=== PATIENT | male | born 1960 | race Caucasian/White ===

== ENCOUNTER 2017-10-15 17:17 | Emergency (ER) | payer OTHER, SELFPAY ==
[2017-10-15 17:18] VITALS: BP 154/86; PULSE 105; RESP 22; TEMP 36.7; O2SAT 99; BMI 34.0
[2017-10-15 18:03] VITALS: PULSE 102; RESP 18
[2017-10-15] MEDS: Ipratropium/Albuterol Sulfate 3 ML AMPUL.NEB INHALATION (18:03)
--- NOTE | 2017-10-15 18:26 | RAD_ITS ---
STUDY: X-RAY CHEST REASON FOR EXAM: Male, 57 years old. Cough. Flu symptoms. TECHNIQUE: PA and lateral views of the chest. COMPARISON: None. FINDINGS: The lungs are mildly hyperexpanded. There is no focal mass or infiltrate. There is no demonstrated pleural abnormality. Normal size heart. Normal mediastinum and vanessa. Normal visualized pulmonary arteries. Normal visualized aortic arch and descending thoracic aorta. There are diffuse degenerative changes of the visualized thoracic spine. Normal visualized ribs, clavicles, and shoulders. There is no demonstrated abnormality of the visualized soft tissue structures of the upper abdomen. RAD/Chest PA and Lateral IMPRESSION: No acute cardiopulmonary disease. Electronically Signed: Kareem Toth DO at 18:35 EST Tel [phone], Service support ,
--- NOTE | 2017-10-15 19:03 | ED.VISSUMM ---
- ER Visit Summary Date of Service: 10/15/17 Chief Complaint: [Cough shortness of breath] History of Present Illness: The patient is a 57 M [presents the emergency department with sore throat runny nose fever cough and shortness of breath that started this morning. He was seen at urgent care. He was given a prescription for Tamiflu. Throughout the day he has had paroxysmal of cough that make him very short of breath and tight in the chest and he is concerned about this. He is not having exertional shortness of breath and has periods without shortness of breath in between the coughing spells. He is otherwise healthy. His and his kids also have influenza] Physical Examination: [] Blood pressure 154/86 heart rate 102 respirations 18 temperature 9 8.1 pulse ox 99% on room air WN WD NAD PERRL EOMI MMM NECK supple and nontender, no masses RRR no murmur rub or gallop, no peripheral edema, symmetric radial pulses CTAB no respiratory distress ABDOMEN is soft and nontender, normal bowel sounds, no distension, no rebound or guarding SKIN is warm and dry no rashes Alert and Oriented x3, CN II-XII in tact, no motor or sensory deficits, gait normal No lymphadenopathy Test Results: [] Emergency Department Course and Treatment: [Chest x-ray was obtained and shows no acute process. He was given a DuoNeb in the emergency department although there was not wheezing on exam but it did improve his symptomology very much. He was given albuterol MDI 40 mg of prednisone and antitussive medicine for home. He will drink rest and was given precautions for which to return] Treatment Plan: [] Disposition: [Discharge] Impression: [Influenza] This note was generated with Live[employer] dictation software. It may contain incorrect words, spelling, and punctuation that were not noted in review of the chart prior to signing ED Disposition - Plan for ED Patient: Chief Complaint: Shortness of Breath Referrals: Santana Salinas MD [Primary Care Provider] -
--- NOTE | 2017-10-15 19:05 | ED.DEP ---
ED Disposition - Plan for ED Patient: Chief Complaint: Shortness of Breath Instructions: ED Flu Prescriptions: Albuterol IH (ProAir) [Proair Hfa] 2 puff INHALATION Q4H PRN PRN #1 inhaler PRN Reason: Cough Promethazine/Codeine [Phenergan W/Codeine] 5 ml PO Q6H PRN PRN #120 ml PRN Reason: Cough Prednisone 40 mg PO DAILY #6 tablet Referrals: Santana Salinas MD [Primary Care Provider] - 3-5 Days
[2017-10-15 19:21] VITALS: PULSE 81; RESP 16; O2SAT 100
== END 2017-10-15 19:23 | disposition home or self-care (01) ==
PROVIDERS: Emergency Provider Emergency Medicine; Family Provider Internal Medicine; PCP Internal Medicine
DX: J11.1 Influenza due to unidentified influenza virus with other respiratory manifestations (principal); E11.9 Type 2 diabetes mellitus without complications; I10 Essential (primary) hypertension
CPT/HCPCS: 71046; 94640; 99282

== ENCOUNTER → 2019-10-28 | Outpatient (CLI) | payer OTHER, SELFPAY ==
--- NOTE | 2019-10-28 17:07 | STRESSREP ---
Stress Test Report Exercise stress test. 59-year-old man with a history of coronary artery bypass surgery. Cardiac rehabilitation. Resting EKG demonstrates normal sinus rhythm with a rate of 77 bpm. The patient exercised according to regular [facility] protocol for a total duration of 7 minutes and 30 seconds. The maximum heart rate attained was 142 bpm which was 87% of maximum predicted heart rate the maximum workload was 9.3 metabolic equivalents. Patient maintained sinus rhythm throughout the recording. The test was terminated due to leg discomfort and the target heart rate being achieved. Resting blood pressure was 122/70 with a final blood pressure 150/80 mmHg. No clinical angina was noted. Conclusion: Exercise stress test with no EKG criteria for ischemia at a moderate to high workload. No contraindications to cardiac rehabilitation.
== END | disposition home or self-care (01) ==
LOC: CVS 09:33
PROVIDERS: PCP Internal Medicine
DX: I25.10 Atherosclerotic heart disease of native coronary artery without angina pectoris (principal); Z95.1 Presence of aortocoronary bypass graft
CPT/HCPCS: 93017

== ENCOUNTER → 2019-10-28 | Outpatient (CLI) | payer OTHER, SELFPAY ==
--- NOTE | 2019-10-28 10:37 | PCM.CR.HP2 ---
CR - History & Physical - General Arrival date:: 10/28/19 Arrival time:: 10:38 Date of Referral:: 09/23/19 Date of CR Evaluation:: 10/28/19 Referring Physician: HARLEEN Primary Diagnosis: CABG x 3 - History of Present Cardiac Event Onset Date: Enter Onset Date of cardiac illnesses in Comment field below Current stable Angina Pectoris:: No Acute Myocardial Infarction within 12 months:: No Coronary Artery Bypass Graft:: Yes - x3 09/23/19 Heart valve replacement or repair:: No PTCA or coronary stenting:: No Heart or Heart-Lung Transplant:: No Type of Symptoms:: Chest pain with splitting wood Interventions with present event:: CABG Were there any complications?: non - Medications Home Medications: Ambulatory Orders Medication Instructions Recorded Aspirin, Baby 2 tab PO DAILY 03/15/17 Fenofibrate Nanocrystallized 145 mg PO DAILY 03/15/17 [Fenofibrate] Hydrocodone Bitart/Apap 5-325 1 - 2 tablet PO Q4H PRN PRN #20 03/15/17 [[place] 5/325] tablet Insulin Aspart [Novolog Flexpen] 0 units SQ TID 03/15/17 Insulin Aspart [Novolog Flexpen] 50 unit SQ QHS 03/15/17 Lisinopril 5 mg PO DAILY 03/15/17 Multivitamin [Multiple Vitamins] 1 each PO DAILY 03/15/17 Sitagliptin Phosphate [Januvia] 100 mg PO DAILY 03/15/17 Trazodone HCl 1 tab PO QHS PRN PRN 03/15/17 metFORMIN HCl [Glucophage] 1 tab PO BID 03/15/17 Albuterol IH (ProAir) [Proair Hfa] 2 puff INHALATION Q4H PRN PRN #1 10/15/17 inhaler Prednisone 40 mg PO DAILY #6 tablet 10/15/17 proMETHazine/codeine soln 5 ml PO Q6H PRN PRN #120 ml 10/15/17 [Phenergan W/Codeine] Metoprolol Tartrate [Lopressor 50 mg PO BID 10/28/19 (Beta Wilmer)] - Allergies Allergies/Adverse Reactions: Allergies No Known Allergies Allergy (Verified 10/15/17 17:19) - Sleep Disorder Evaluation Hx of Sleep Apnea: No Do you snore loudly (louder than talking or can be heard through closed doors)?: No Do you often feel tired/ fatigued/ sleepy during daytime?: No Has anyone observed you stop breathing during sleep?: No History of Hypertension (for STOP score): Yes STOP Results: Negative Advanced Directives - Advanced Directives 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 Living Will: No Advance Directives Information Provided: Yes Advance Directives on File: No DNR Order?:: No Past Medical History - Past Medical Illness Medical History: Past Medical History (Last Updated 10/28/19 @ 10:50 by Chuy Villa RN) Arteriosclerotic heart disease (ASHD) I25.10 Diabetes mellitus E11.9 HLD (hyperlipidemia) E78.5 Hypertension I10 - Past Surgical History Surgical History: coronary bypass surgery - Family History Summary Family History: Family History (Last Updated 10/28/19 @ 10:52 by Chuy Villa RN) Uncle famil Social History - Smoking History Smoking Status: Never smoker Hx Tobacco Use: No Hx Smoking Exposure: No - Alcohol Use Alcohol Usage: No - Substance Abuse Hx Substance Use: No - Occupation Occupation (List type of work in comments):: Employed Hours worked per day:: 8 - Hobbies, Recreation, Social Activities Hobbies: Woodworking, Hiking, Walking, Exercise, Other - gardening Recreational Activities: I am able to engage in a few activities Social Environment - Status Marital Status: - Current Living Arrangements Living Environment:: Spouse - Children How many children do you have?: 1 Do any of your children live nearby?: Yes - Safety Do you feel safe in your surroundings?: Yes - Assistance Do you need any assistance at home?: no Review of Systems - Review of Systems Hints: Right click = Denies ([place]). Left click = Reports ([place]) Review of Present Symptoms: Reports: Operative Discomfort - legs where veins were removed, Wound Healing - healing well, Appetite - Normal, Appetite - Special Diet - cardiac diet, Sleep - Normal - difficult sleeping with chest discomfort from surgery. Denies: Shortness of Breath at Rest, Shortness of Breath with Exertion, PVD, Angina, Dizziness/Lightheadedness, Fatigue, Heart Arrhythmia/Irregularities, Sexual Changes - Pain Is Patient Pain Free?: No Pain Location: chest, upper extremity, lower extremity Pain Level: 2/10 Previous experience dealing with pain?: reposition, pain meds Risk Factor Assessment - Vital Signs Respiratory Rate: 98 - Pulse Pulse Rate: 78 Pulse Rhythm: Regular - Hypertension Blood Pressure Sitting - Right Arm: 124/70 Blood Pressure Sitting - Left Arm: 120/74 - Stress Stress: Recent, Work-related - Blood Cholesterol/Lipids Total Cholesterol (mg/dL) Goal = less than 200 mg/dL: 108 Triglycerides (mg/dL) Goal = less than 150 mg/dL: 126 - Diabetes Diabetic History: Type II, Medication Dependent, Insulin Dependent Nutrition Referral for Diabetes: Yes - Obesity Height: 5 ft 10 in Weight:: 224 lb Weight in Pounds: 224.0 lbs Weight Source: Stated by Patient Body Mass Index (BMI): 32.1 Desired Body Weight: 215 Realistic Weight Goal (Loss of 1-2 lbs/week): 215 Nutritional Referral for Obesity: Yes - Physical Inactivity Physical Inactivity: Reg Exercise 30 min/day - not since CABG Exercise Limitations: sternal prec and 10 # - Risk Stratification Risk Guidelines: Lowest Risk: Risk Factor for Smoking, Risk Factor for Hypertension, Risk Factor for Sedentary Lifestyle, Risk Factor for Depression, Moderate Risk: Risk Factor for Dyslipidemia, Highest Risk: Risk Factor for Diabetes, Risk Factor for Obesity - For Smoking Smoking Risk Guidelines: Smoking Low Risk: None or quit greater than 6 months ago. Smoking Moderate Risk: Smoker or quit 6 months or less ago. Smoking High Risk: Smoker - For Dyslipidemia Dyslipidemia Risk Guidelines: Low Risk: Moderate Risk: High Risk: 15-25% fat 25.1-29% fat >/= 30% fat. <7% sat fat 7-9% sat fat >9% sat fat. <150 mg chol 150-299 mg chol >/= 300 mg chol. LDL <100 LDL 100-129 LDL >/= 130. Chol/HDL ratio <5.0 Chol/HDL ratio 5.0-6.0 Chol/HDL ratio >6.0. Triglycerides <100 Triglycerides 100-149 Triglycerides >/= 150 - For Diabetes Mellitus Diabetes Risk Guidelines: Diabetes Low Risk: HgA1c <6.5% and/or FBG <120. Diabetes Moderate Risk: HgA1c 6.6-7.9% and/or FBG 120-180. Diabetes High Risk: HgA1c >/= 8% and/or FBG >180 - For Obesity/Overweight Obesity/Overweight Risk Guidelines: Obesity Low Risk: BMI <25.0. Obesity Moderate Risk: BMI 25-29.9. Obesity High Risk: BMI >/= 30.0 - For Hypertension Hypertension Risk Guidelines: Hypertension Low Risk: Systolic <120 and Diastolic <80. Hypertension Moderate Risk: Systolic 120-139 and Diastolic 80-89. Hypertension High Risk: Systolic >/= 140 and Diastolic >/= 90 - For Sedentary Lifestyle Sedentary Lifestyle Risk Guidelines: Sedentary Lifestyle Low Risk: >/= 1,500 kcal/week. Sedentary Lifestyle Moderate Risk: 700-1,499 kcal/week. Sedentary Lifestyle High Risk: < 700 kcal/week - For Depression Depression Risk Guidelines: Depression Low Risk: Not clinically depressed. Depression Moderate Risk: Mildly depressed. Depression High Risk: Clinically depressed - Family History Family History: Family History (Last Updated 10/28/19 @ 10:52 by Chuy Villa RN) Uncle famil Motivation - Motivation to Participate On a scale of 1 to 10, how prepared are you to commit to attending program?: 10
--- NOTE | 2019-10-28 10:46 | PCM.CR.ITP ---
Diagnosis - General Information Admitting Diagnosis: S/P CABG ON 10/25/2019 Personal Learning Style:: Audio/Visual, Written Barriers to Learning: No Barriers Gave educational material for:: Treating Heart Disease, Emotions & Heart Disease, Stress Management & Relaxation, Sleep Disorders & Heart Disease, How The Heart Works, What it means to have Heart Disease, How Coronary Artery Disease is Diagnosed, Heart Procedures, What Heart Medications Do, Risk Factors & Modifications, Living an Active Life, Nutrition - Education/Goals Individual Counseling: Initial Assessment: Abnormal Cholesterol Levels, High Blood Pressure, Overweight/Obesity Cardiac Rehabilitation Goals: 1. Maintain the individual as the primary focus of care. 2. To improve the patient's quality of life. 3. Identification of cardiac risk factors and provide cardiac risk factor management. 4. Enhance the psychosocial status of the patient. 5. Reconditioning enough to allow the patient to resume customary activities. 6. Control symptoms of cardiac disease Personal Goals: Initial Assessment: Improve energy level, Get back to work, or to resume activities faster, Improve muscle strength and endurance, Improve diet and eating habits (eat healthier), Control risk factors (learn risk factor modification) Scale for measuring improvement of personal goals: Enter appropriate number in Comments. 2 = Unchanged. 3 = Slightly Better. 4 = Moderate Improvement. 5 = Met my Goal - Diagnosis & Disease Process Outcomes/Goals: Pt IDs own risk factors & lifestyle modifications by Session 10, Verbalizes symptoms of angina & response by session 3., Pt independently manages Plan/Interventions: Assist Pt to ID & engage in lifestyle modification to reduce CVD risk, Instruct on individual risk factors, Review symptoms of angina & emergency actions, Review secondary diagnosis & identify educational needs. - Safety Referral to Physical Therapy: No Referral to [facility] Case Management: No Fall Risk Assessed:: Yes Assistive Devices:: None Exercise - Initial Assessment - Visit Date of Eval: 10/28/19 Session #:: 0 - INITIAL EVALUATION Mets: Pre-: >7 METS for 30 minutes by discharge - Stress Test Date: 10/28/19 - @NOON. - Physician Prescribed Exercise Modalities: Treadmill, Rower - 8 WEEKS S/P CABG, Airdyne, NuStep Intensity: 60-80% maximum heart rate reserve from GXT Current METSs:: 4.0 Target Heart Rate:: 106-137 Resting Blood Pressure: 124/70 - Outcomes & Goals Goals:: Verbalizes understanding of THR, RPE & goal METS by session 6, Documents in home exercise log/reports 30 min aerobic 5 day/wk by DC, Demonstrates accurate pulse taking by DC - Intervention & Plan Exercise Program Goals: Instruct on personal THR & RPE, Instruct on MET level & personal MET goal, Show patient to take own pulse /validate performance until accurate, Instruct on home exercise - Physical Activity Home Exercise Physical Activity - Home Exercise: Safe Exercise, Warm-up, Self-monitoring, Cool-Down, Home Exercise > 30 min Daily, Sitting Time <3 hours/daily - Outcomes & Goals Outcomes/Goals: Demonstrates correct Warm-up/exercise Cool-Down (S3) if = 2.5 METs, Verbalizes symptoms of exercise intolerance by Session 3 (S3), Demonstrate safe equipment use (S3) & follows exercise prescrition (6) - Intervention & Plan Plan/Intervention: Instruct warm-up & cool-down if exercising at > 2 METs, Instruct on symptoms of exercise intolerance & actions to take, Assess intial functional capacity & safety risk Nutrition - Initial Assessment - Program Goals Nutrition Program Goals: LDL <100 optimal. 100 - 129 Near optimal. 130 - 159 Borderline High. 160 - 189 High. Total Cholesterol <200 desirable. 200 - 239 Borderline High. >/= 240 High. HDL < 40 Low >/=60 High. Triglycerides <150 desirable. <199 optimal. VlDL 5 - 40. HgbA1C <7%. BMI <25 Patient has diagnosis of Hyperlipidemia (ICD E78)?: Yes - Visit Date of Assessment:: 10/28/19 Session #:: 0 - Cholesterol/Lipids Triglycerides (mg/dL): 0 - UNAVAILABLE Determine presence & major risk factors that modify LDL goal: Hypertension or hypertensive medication, Age men > 45 years; women >/= 55 years Outcomes/Goals: Pt IDs own risk factors & lifestyle modifications by Session 10, Verbalizes symptoms of angina & response by session 3., Pt independently manages Intervention/Plan: Advocate for lipid panel cholesterol medication if applicable, Instruct on personal lipid levels & lipid goals/NCEP guidelines, Instruct on cholesterol Referral to dietitian:: Yes - Diabetes (Other Core Measures) Diabetes Type: Diagnosis Type II ICD-10 E11 Insulin dependent injection/pump?: Yes - NOVOLIN and HUMALOG Non-Insulin Dependent?: Yes Do you monitor your blood sugar at home?: Yes Referral to Diabetic Clinic:: Yes - INITIAL DSMNT & MNT Outcomes/Goals:: Able to state symptoms of, Able to state, Able to state Intervention/Plan:: Instruct on, Refer to, Instruct on - Weight Mgt (Other Care) Not Applicable: Yes Diagnosis Overweight/Obesity BMI> 30% ICD-10 E66: Yes Outcomes/Goals: Pt sets, maintains & shows weight loss goal & trend during rehab Intervention/Plan: Instruct on ideal BMI & set weight loss goal w/patient, Assist pt to ID & incorporate diet changes for weight loss by S9, Refer to Structured Weight Loss program as appropriate, Encourage goal of using 250-300dcal per session for weight loss - Healthy Eating Habits Outcomes/Goals:: Consume diet rich in vegs,fruits,whole grain/high fiber,fish,lean meat, Limit sat/trans fats,cholesterol & added salts & sugars Intervention/Plan:: Assess current eating habits - Education Gave educational materials for:: Signs & symptoms of hypoglycemia, Signs & symptoms of hyperglycemia, Relate diabetes to coronary artery disease, Healthy eating Medical - Initial Assessment - Visit Date of Eval: 10/28/19 - Medication Compliance Preventative Medication(s):: Aspirin, Statin/lipid, Beta milton H/O mental health issues: depression, anxiety, or addiction?: No Doesn?t believe in the benefits of treatment?: No Believes medications are unnecessary or harmful?: No Has a concern about medication side effects?: No Expresses concern over the cost of medications?: No Outcomes/Goals: Verbalizes medications,desired effect & common side effects @ DC, Pt self-reports following medication regimen, Keeps card in wallet w/medications listed by DC Interventions/plans: Instruct on medication effects & side effects, Review medication list w/patient every two weeks, Instruct importance of taking meds as ordered & assist problem solving - Tobacco Use Tobacco Use: Non-smoker Do you use smokeless tobacco?: No - Hypertension Hypertension Diagnosis:: Hypertension ICD-10 I10 [place] [employer] Hypertension Guidelines: [place] [employer] Hypertension Guidelines. Normal BP Less than 120/80. Elevated BP 120/80. Hypertension Stage 1: BP 130-139/80-89. Hypertesnion Stage 2: BP 140 or higher/90 or higher. Hypertension Crisis: BP higher than 180/120 Outcomes/Goals: Able to verbalize/achieve optimal blood pressure <130/80, Incorporates diet changes & exercise for blood pressure control by DC Interventions/plan: Instruct on optimal blood pressure, hypertension & medications, Instruct on effects of sodium, alcohol, stress, exercise &hypertension - Tobacco Cessation Referral Smoking Cessation Referral:: No Education Schedule Given:: Yes Psychosocial - Initial Assess - VIsit Date of Eval: 10/28/19 Session #:: 0 - INITIAL EVALUATION STARTING 11/01/2019 Not Applicable: No History of previous Mental disease:: No - Target Goals Target Goals: Assess presence or absence of depression. Using a valid screening tool, maximizes coping skills. Positive support system - Psychosocial Test Tool Used:: Richard[place] Jamie QOL Cardiac, PHQ-9 Questionnaire phq-9 Severity: Severity. 1-4 Minimal Depression. 5-9 Mild Depression. 10-14 Moderate Depression. 15-19 Moderately Sever Depression. 20-27 Severe Depression. Rule: - Referral to Behavioral Health PS - Interventions: Yes Attend Stress Management Classes, No Referral to Behavioral Health if PHQ-9 score >9:, No Referral to [facility], No Referral to Physician if PHQ-9 if score is 5-9: - Outcomes/Goals: See list Psychosocial Outcomes/Goals:: ID's personal stressors & 2 strategies to manage stress by discharge - Intervention/Plan: See List Interventions/Plan:: Assess stressors,coping strategies & signs of derpression on admission, Instruct/assist pt to develop coping & personal stress Mgt strategies, Instruct patient to recognize signs & symptoms of depression, Instruct patient to recog Patient Health Questionnaire Initial Assessment 1. Little interest or pleasure in doing things: Several days 2. Feeling down, depressed, or hopeless: Several days 3. Trouble falling or staying asleep, or sleeping too much: More than half the days 4. Feeling tired or having little energy: Several days 5. Poor appetite or overeating: Not at all 6. Feeling bad about yourself -- or that you are a failure or have let yourself or your family down: Not at all 7. Trouble concentrating on things, such as reading the newspaper or watching television: Not at all 8. Moving or speaking so slowly that other people could have noticed. Or the opposite - being so fidgety or restless that you have been moving around a lot more than usual: Not at all 9. Thoughts that you would be better off , or of hurting yourself in some way: Not at all How difficult have these problems made it for you to do your work, take care of things at home, or get along with other people?: Not difficult at all Total Score: 5 NICKI-Q SV Test - Statements CAD is a disease of the arteries in the heart: False Examples of risk factors for heart disease: True Angina is chest pain or discomfort: True The benefits of resistance training include: True Eating more meat and dairy products: False Anti-platelet medications such as aspirin are important: True The only effective way to manage stress: False An exercise warm-up slowly increases heart rate: True Prepared, processed foods usually have high sodium: True Depression is common after a heart attack: True The statin medications lower cholesterol: True To control blood pressure, lower the amount of sodium: True If someone gets chest discomfort during walking: False Transfats are partially hydrogenated vegetable oils: True Sleep apnea that is not treated increases the risk: True To control cholesterol, one should become a vegetarian: False Someone knows if he/she is exercising at the right level: True Diabetes cannot be prevented with exercise & health eating: False Stress is a large risk for heart attack: True A diet that can help lower blood pressure is rich in: True - Total Score Total Correct Responses: 19 Self-Efficacy Initial Assessment We would like to know how confident you are in doing certain activities. Please select your confidence level for:: Select your confidence level for the following using the scale 1-10 where 1 is not at all confident and 10 is totally confident. Your score is the average of all 6 responses. Fatigue: How confident are you that you can keep the fatigue caused by your disease from interfering with the things you want to do? Select Number: 10 Physical Discomfort or Pain: How confident are you that you can keep the physical discomfort or pain of your disease from interfering with the things you want to do? Select Number: 10 Emotional Distress: How confident are you that you can keep the emotional distress caused by your disease from interfering with the things you want to do? Select Number: 10 Other Symptoms or Health Problems: How confident are you that you can keep other symptoms or health problems from interfering with the things you want to do? Select Number: 9 Different Tasks and Activities: How confident are you that you can do the different tasks and activities needed to manage your health condition so as to reduce your need to see a doctor? Select Number: 9 Medication: How confident are you that you can do things other than just taking medication to reduce how much your illness affects your everyday life? Select Number: 9 Total Score:: 9 Nutrition Survey - Nutrition Survey Instructions Scoring Instructions: Scoring is as follows: Yes = 1 points. No = 0 point. Patient score that is >/=12 is considered to be at potential nutritional risk and could benefit from a referral to a registered dietitian. - Nutrition Survey Initial Have you lost >10 lbs over the past 2 months without trying?: No Are you following a special diet at home for diabetes, low fat, or low salt?: Yes Are you interested in meeting with a dietitian for help understanding your diet?: No Do you eat less than 3 meals a day?: No Do you eat fatty meats (olsen, sausage, ribs, etc), fried foods, desserts, large amounts of salad dressings, margarine, butter, or cheese most days?: No Do you have food allergies? [Enter types in comment field]: No Do you eat in restaurants more than 3 times a week?: No Do you season food with salt, seasoning salt, or garlic salt?: No Do you used canned, boxed, frozen meals, or soups, seasoning packets?: No Total Score:: 1
[2019-10-28 11:03] VITALS: BP 124/70
[2019-10-28 11:07] VITALS: BP 120/74; BP 124/70; PULSE 78; RESP 98; BMI 32.1
== END | disposition home or self-care (01) ==
LOC: CR 09:29
PROVIDERS: PCP Internal Medicine; Referring Provider Thoracic Surgery (Cardiothoracic Vascular Surgery); Visit Provider Thoracic Surgery (Cardiothoracic Vascular Surgery)
DX: Z95.1 Presence of aortocoronary bypass graft (principal)

== ENCOUNTER 2019-11-17 14:15 | Outpatient (RCR) | payer OTHER, SELFPAY | END 2019-11-20 23:59 | LOC: CR 14:15 | PROVIDERS: PCP Internal Medicine; Referring Provider Thoracic Surgery (Cardiothoracic Vascular Surgery) | DX: Z95.1 Presence of aortocoronary bypass graft (principal) | CPT/HCPCS: 93798 ==

== ENCOUNTER 2019-12-10 14:15 | Outpatient (RCR) | payer OTHER, SELFPAY ==
[2019-10-28 11:07] VITALS: BMI 32.1
--- NOTE | 2019-11-24 09:08 | PCM.CR.ITP ---
Diagnosis - General Information Admitting Diagnosis: S/P CABG Personal Learning Style:: Audio/Visual, Written Barriers to Learning: No Barriers Stage of change r/t lifestyle modifications:: Action Gave educational material for:: Treating Heart Disease, Emotions & Heart Disease, Stress Management & Relaxation, Sleep Disorders & Heart Disease, How The Heart Works, What it means to have Heart Disease, How Coronary Artery Disease is Diagnosed, Heart Procedures, What Heart Medications Do, Risk Factors & Modifications, Living an Active Life, Nutrition - Education/Goals Individual Counseling: Initial Assessment: Abnormal Cholesterol Levels, High Blood Pressure, Overweight/Obesity Cardiac Rehabilitation Goals: 1. Maintain the individual as the primary focus of care. 2. To improve the patient's quality of life. 3. Identification of cardiac risk factors and provide cardiac risk factor management. 4. Enhance the psychosocial status of the patient. 5. Reconditioning enough to allow the patient to resume customary activities. 6. Control symptoms of cardiac disease Personal Goals: Initial Assessment: Improve energy level, Get back to work, or to resume activities faster, Improve knowledge of cardiac disease, Improve muscle strength and endurance, Improve diet and eating habits (eat healthier), Control risk factors (learn risk factor modification) Scale for measuring improvement of personal goals: Enter appropriate number in Comments. 2 = Unchanged. 3 = Slightly Better. 4 = Moderate Improvement. 5 = Met my Goal - Diagnosis & Disease Process 30 day Reassessments:: Progressing - Safety Referral to Physical Therapy: No Referral to [facility] Case Management: No Fall Risk Assessed:: Yes Assistive Devices:: None Exercise - 30-day Assessment - Visit Date of Eval: 11/24/19 Session #:: 7 - Physician Prescribed Exercise Modalities: Treadmill, Rower, Airdyne, NuStep Frequency: 3x/week for 12 weeks [36 sessions] Intensity: 60-80% of age predicted maximum heart rate reserve Target Heart Rate:: 106-137 Current RPE:: 10-11 Maximum Excercise HR:: 134 Resting Blood Pressure: 136/72 - CONTROLLED MEDICATION Maximum Exercise Blood Pressure: 160/80 EKG Type: NSR to sinus tachycardia without ectopy - Outcomes & Goals Goals:: Verbalizes understanding of THR, RPE & goal METS by session 6, Documents in home exercise log/reports 30 min aerobic 5 day/wk by DC, Demonstrates accurate pulse taking by DC - Intervention & Plan Exercise Program Goals: Instruct on personal THR & RPE, Instruct on MET level & personal MET goal, Show patient to take own pulse /validate performance until accurate, Instruct on home exercise - 30-day Reassessments 30 day Reassessments:: Progressing - Physical Activity Home Exercise Physical Activity - Home Exercise: Safe Exercise, Warm-up, Self-monitoring, Cool-Down, Home Exercise > 30 min Daily, Sitting Time <3 hours/daily - Outcomes & Goals Outcomes/Goals: Demonstrates correct Warm-up/exercise Cool-Down (S3) if = 2.5 METs, Verbalizes symptoms of exercise intolerance by Session 3 (S3), Demonstrate safe equipment use (S3) & follows exercise prescrition (6) - Intervention & Plan Plan/Intervention: Instruct warm-up & cool-down if exercising at > 2 METs, Instruct on symptoms of exercise intolerance & actions to take, Instruct & monitor on saf, Assess intial functional capacity & safety risk - 30-day Reassessments 30 day Reassessments:: Progressing Nutrition - 30-Day Assessment - Program Goals Nutrition Program Goals: LDL <100 optimal. 100 - 129 Near optimal. 130 - 159 Borderline High. 160 - 189 High. Total Cholesterol <200 desirable. 200 - 239 Borderline High. >/= 240 High. HDL < 40 Low >/=60 High. Triglycerides <150 desirable. <199 optimal. VlDL 5 - 40. HgbA1C <7%. BMI <25 Patient has diagnosis of Hyperlipidemia (ICD E78)?: Yes - Visit Date of Assessment:: 11/24/19 - Cholesterol/Lipids Triglycerides (mg/dL): 0 - NO LABS AVAILABLE Determine presence & major risk factors that modify LDL goal: Hypertension or hypertensive medication, Family history of premature CHD in Male < 55 years: female <65 yearsFa, Age men > 45 years; women >/= 55 years Outcomes/Goals: Pt IDs own risk factors & lifestyle modifications by Session 10, Verbalizes symptoms of angina & response by session 3., Pt independently manages Intervention/Plan: Instruct on personal lipid levels & lipid goals/NCEP guidelines, Instruct on cholesterol Referral to dietitian:: Yes 30-day Reassessments:: Progressing - Diabetes (Other Core Measures) Diabetes Type: Diagnosis Type II ICD-10 E11 Insulin dependent injection/pump?: Yes - INSULIN INJECTIONS Non-Insulin Dependent?: Yes Do you monitor your blood sugar at home?: Yes Referral to Diabetic Clinic:: Yes Outcomes/Goals:: Able to state symptoms of, Able to state, Able to state Intervention/Plan:: Instruct on, Refer to, Instruct on 30-day Reassessments:: Progressing - Weight Mgt (Other Care) Not Applicable: No Height: 5 ft 10 in Weight:: 229 lb 8 oz BMI: 32.9 Diagnosis Overweight/Obesity BMI> 30% ICD-10 E66: Yes Diagnosis High BMI/Morbid Obesity BMI> 35% ICD-10 Z68: No Outcomes/Goals: Pt sets, maintains & shows weight loss goal & trend during rehab Intervention/Plan: Instruct on ideal BMI & set weight loss goal w/patient, Assist pt to ID & incorporate diet changes for weight loss by S9, Refer to Structured Weight Loss program as appropriate, Encourage goal of using 250-300dcal per session for weight loss 30 day Reassessments:: Progressing - Healthy Eating Habits Will attend diet classes:: Yes Outcomes/Goals:: Consume diet rich in vegs,fruits,whole grain/high fiber,fish,lean meat, Limit sat/trans fats,cholesterol & added salts & sugars Intervention/Plan:: Assess current eating habits 30-day Reassessments:: Progressing - Education Gave educational materials for:: Healthy eating Medical- 30-Day Assessment - Visit Date of Eval: 11/24/19 Session #:: 7 - Medication Compliance Preventative Medication(s):: Aspirin, Statin/lipid H/O mental health issues: depression, anxiety, or addiction?: No Doesn?t believe in the benefits of treatment?: No Believes medications are unnecessary or harmful?: No Has a concern about medication side effects?: No Expresses concern over the cost of medications?: No Outcomes/Goals: Verbalizes medications,desired effect & common side effects @ DC, Pt self-reports following medication regimen, Keeps card in wallet w/medications listed by DC Interventions/plans: Instruct on medication effects & side effects, Review medication list w/patient every two weeks, Instruct importance of taking meds as ordered & assist problem solving 30-day Reassessments:: Progressing - Tobacco Use Tobacco Use: Non-smoker - Hypertension Hypertension Diagnosis:: Hypertension ICD-10 I10 Resting Blood Pressure:: 138/76 [place] [employer] Hypertension Guidelines: [place] [employer] Hypertension Guidelines. Normal BP Less than 120/80. Elevated BP 120/80. Hypertension Stage 1: BP 130-139/80-89. Hypertesnion Stage 2: BP 140 or higher/90 or higher. Hypertension Crisis: BP higher than 180/120 Peak Exercise Blood Pressure:: 160/80 Outcomes/Goals: Able to verbalize/achieve optimal blood pressure <130/80, Incorporates diet changes & exercise for blood pressure control by DC Interventions/plan: Instruct on optimal blood pressure, hypertension & medications, Instruct on effects of sodium, alcohol, stress, exercise &hypertension 30 day Reassessments:: Progressing - Tobacco Cessation Referral Smoking Cessation Referral:: No Individual Education/Counseling:: No Education Schedule Given:: Yes Psychosocial - 30-Day Assess - VIsit Date of Eval: 11/24/19 Session #:: 7 Not Applicable: Yes History of previous Mental disease:: No - Target Goals Target Goals: Assess presence or absence of depression. Using a valid screening tool, maximizes coping skills. Positive support system - Psychosocial Test Tool Used:: [employer] QOL Cardiac, PHQ-9 Questionnaire phq-9 Severity: Severity. 1-4 Minimal Depression. 5-9 Mild Depression. 10-14 Moderate Depression. 15-19 Moderately Sever Depression. 20-27 Severe Depression. Rule: - Referral to Behavioral Health PS - Interventions: Yes Attend Stress Management Classes, No Referral to Behavioral Health if PHQ-9 score >9:, No Referral to [facility], No Referral to Physician if PHQ-9 if score is 5-9: - Outcomes/Goals: See list Psychosocial Outcomes/Goals:: ID's personal stressors & 2 strategies to manage stress by discharge - Intervention/Plan: See List Interventions/Plan:: Assess stressors,coping strategies & signs of derpression on admission, Instruct/assist pt to develop coping & personal stress Mgt strategies, Instruct patient to recognize signs & symptoms of depression, Instruct patient to recog - 30-day Reassessments: 30 day Reassessments:: Progressing Patient Health Questionnaire 30-Day Re-eval Assessment 1. Little interest or pleasure in doing things: Not at all 2. Feeling down, depressed, or hopeless: Not at all 3. Trouble falling or staying asleep, or sleeping too much: Several days 4. Feeling tired or having little energy: Not at all 5. Poor appetite or overeating: Not at all 6. Feeling bad about yourself -- or that you are a failure or have let yourself or your family down: Not at all 7. Trouble concentrating on things, such as reading the newspaper or watching television: Not at all 8. Moving or speaking so slowly that other people could have noticed. Or the opposite - being so fidgety or restless that you have been moving around a lot more than usual: Not at all 9. Thoughts that you would be better off , or of hurting yourself in some way: Not at all How difficult have these problems made it for you to do your work, take care of things at home, or get along with other people?: Not difficult at all Total Score: 1 Self-Efficacy 30-Day Re-eval Assessment We would like to know how confident you are in doing certain activities. Please select your confidence level for:: Select your confidence level for the following using the scale 1-10 where 1 is not at all confident and 10 is totally confident. Your score is the average of all 6 responses. Fatigue: How confident are you that you can keep the fatigue caused by your disease from interfering with the things you want to do? Select Number: 10 Physical Discomfort or Pain: How confident are you that you can keep the physical discomfort or pain of your disease from interfering with the things you want to do? Select Number: 10 Emotional Distress: How confident are you that you can keep the emotional distress caused by your disease from interfering with the things you want to do? Select Number: 10 Other Symptoms or Health Problems: How confident are you that you can keep other symptoms or health problems from interfering with the things you want to do? Select Number: 10 Different Tasks and Activities: How confident are you that you can do the different tasks and activities needed to manage your health condition so as to reduce your need to see a doctor? Select Number: 10 Medication: How confident are you that you can do things other than just taking medication to reduce how much your illness affects your everyday life? Select Number: 10 Total Score:: 10
[2019-11-24 09:23] VITALS: BP 136/72; BP 138/76; BP 160/80; BMI 32.9
== END 2019-12-21 23:59 ==
LOC: CR 14:15
PROVIDERS: PCP Internal Medicine; Referring Provider Thoracic Surgery (Cardiothoracic Vascular Surgery)
DX: Z95.1 Presence of aortocoronary bypass graft (principal)
CPT/HCPCS: 93798

== ENCOUNTER 2020-12-05 09:04 | Outpatient (RCR) | payer OTHER, SELFPAY ==
[2019-10-28 11:07] VITALS: BMI 32.1
[2020-01-21 14:26] VITALS: BMI 32.8
[2020-12-05] MEDS: COVID-19 VACC, MRNA(PFIZER)/PF 30 MCG/0.3 ML SYRINGE IM (16:41)
[2020-12-26] MEDS: COVID-19 VACC, MRNA(PFIZER)/PF 30 MCG/0.3 ML SYRINGE IM (16:25)
== END 2021-02-27 23:59 ==
LOC: IMMUN 09:04
PROVIDERS: PCP Internal Medicine; Visit Provider Family Medicine
DX: Z23 Encounter for immunization (principal)
CPT/HCPCS: 0001A; 0002A; 91300

== ENCOUNTER 2022-02-01 16:50 | Emergency (ER) | payer OTHER, BC, SELFPAY ==
[2020-01-21 14:26] VITALS: BMI 32.8
[2022-02-01 16:51] VITALS: BP 152/90; PULSE 76; RESP 16; TEMP 35.7; O2SAT 97; BMI 32.9
--- NOTE | 2022-02-01 16:55 | RAD_ITS ---
STUDY: X-RAY - LEFT SHOULDER REASON FOR EXAM: Male, 62 years old. PT STATES HE STUMBLED BACK AT WORK AND FELL, INJURED LEFT SHOULDER TECHNIQUE: 4 view(s) of the shoulder. COMPARISON: None. FINDINGS: Normal glenohumeral articulation. Widening of the left acromioclavicular joint is similar since 2018. Normal acromion. Normal humeral head and visualized proximal humerus. The soft tissue structures are unremarkable. Normal visualized pulmonary apex. RAD/Shoulder min 2 Views IMPRESSION: 1. No fracture or malalignment. Electronically Signed: Layo Cummins MD ([place]) at 17:12 EDT ,
--- NOTE | 2022-02-01 18:30 | EDS_ITS ---
HPI History of Present Illness Chief Complaint: Upper Extremity Injury Detail of Chief Complaint: Left shoulder injury Informant: patient Occured/Mechanism Mechanism/Context: Yes fall Onset/Context/Timing Onset: Yesterday Context: Gradual Onset Current Severity: Mild Maximum Severity: Moderate Narrative Narrative: Patient presents secondary to left shoulder injury. He was at work yesterday when he stumbled and fell backwards landing on his buttock and then his left shoulder. He states last evening he had trouble getting comfortable secondary to left shoulder pain. He is right-hand dominant. He reports some intermittent paresthesias to his left hand. Worker's Comp. claim is already been started. PCP did not have availability to get x-rays and he was sent to the emergency room. [facility] Medical History (Updated 02/01/22 @ 18:[address] Sury Dutton MD) Arteriosclerotic heart disease (ASHD) Diabetes mellitus HLD (hyperlipidemia) Hypertension Home Medications Aspirin, Baby 2 tab PO DAILY 03/15/17 [History Last Taken Unknown] fenofibrate nanocrystallized 145 mg PO DAILY 03/15/17 [History Last Taken Unknown] hydrocodone-acetaminophen 1 - 2 tab PO Q4H PRN PRN #20 tablet 03/15/17 [Rx Last Taken Unknown] insulin aspart U-100 [Novolog Flexpen U-100 Insulin] 0 units SQ TID 03/15/17 [History Last Taken Unknown] insulin aspart U-100 [Novolog Flexpen] 50 unit SQ QHS 03/15/17 [History Last Taken Unknown] lisinopril 5 mg PO DAILY 03/15/17 [History Last Taken Unknown] metformin 1 tab PO BID 03/15/17 [History Last Taken Unknown] multivitamin [Multiple Vitamins] 1 ea PO DAILY 03/15/17 [History Last Taken Unknown] sitagliptin [Januvia] 100 mg PO DAILY 03/15/17 [History Last Taken Unknown] trazodone 1 tab PO QHS PRN PRN 03/15/17 [History Last Taken Unknown] Promethazine/Codeine Soln [Phenergan With Codeine Oral Solution] 5 ml PO Q6H PRN PRN #120 ml 10/15/17 [Rx Last Taken Unknown] albuterol sulfate [ProAir HFA] 2 puff INHALATION Q4H PRN PRN #1 inhaler 10/15/17 [Rx Last Taken Unknown] prednisone 40 mg PO DAILY #6 tab 10/15/17 [Rx Last Taken Unknown] metoprolol tartrate 50 mg PO BID 10/28/19 [History Last Taken Unknown] oxycodone 5 mg PO Q6H PRN 3 Days #10 tab 02/01/22 [Rx Last Taken Unknown] Allergy/AdvReac Type Severity Reaction Status Date / Time No Known Allergies Allergy Verified 02/01/22 16:51 Family History Uncle famil Surgical History (Updated 02/01/22 @ 18:[address] Sury Dutton MD) Hx of CABG Social History Smoking Status: Never smoker ROS ROS ED Constitutional Constitutional ED: Denies chills or fever(s) Eyes Eyes: Denies change in vision ENT ENT ED: Denies sore throat Cardiovascular Cardiovascular: Denies chest pain Respiratory/Chest Respiratory/Chest: Denies cough or dyspnea Gastrointestinal Gastrointestinal: Denies abdominal pain, nausea or vomiting Genitourinary Genitourinary ED: Denies dysuria Musculoskeletal Musculoskeletal: Reports other Details: Left shoulder pain ; Denies back pain Integumentary Denies rash Neurologic Neurologic: Reports paresthesias and weakness; Denies headache(s) Psychiatric Psychiatric: Denies anxiety or depression Allergic/Immunologic Allergic/Immunologic ED: Denies urticaria EXAM Physical Exam Const Vital Signs: 02/01/22 16:51 Temperature 96.2 F L Temperature Source Temporal Pulse Rate 76 Respiratory Rate 16 Blood Pressure 152/90 H Blood Pressure Mean 110 Pulse Ox 97 Oxygen Delivery Method Room Air Positive well nourished and well developed General Appearance ED: well developed HEENT normocephalic and atraumatic Eyes PERRL and EOMs intact bilaterally Neck supple Chest Wall inspection of chest normal and palpation of chest normal Resp normal respiratory effort and clear to auscultation bilaterally Cardio regular rate and regular rhythm GI non-tender Palpation: soft Extremity Extremity Narrative: Tenderness location with focal swelling over the supraspinatus muscle of the left shoulder. No anterior tenderness. No evidence of dislocation. Patient does have weakness when attempting to raise his left arm. Strong distal pulses with normal cap refill and strong hand grasp noted. Neuro oriented x3 Sensorium / Orientation: alert Psych mental status grossly normal Skin Lesions: no lesions Rashes: no rashes MDM MDM MDM Narrative Medical decision making narrative: Left shoulder x-rays obtained per nursing protocol. Radiography Diagnostic Testing: Clinical Impression(s) from Imaging Studies Shoulder X-Ray 02/01/22 16:55 IMPRESSION: 1. No fracture or malalignment. Electronically Signed: Layo Cummins MD ([place]) at 17:12 EDT , Treatment and Re-Evaluation Narrative: X-rays per my interpretation reveal no evidence of dislocation or fracture. Radiologist interpretation also reviewed. I explained to the patient that I am concerned for rotator cuff injury given his physical exam findings. He will follow-up with [facility] for Worker's Comp. I will also go ahead and give him phone number for orthopedic follow-up as I suspect they will be referring him. He will be given prescription for oxycodone to use as needed for breakthrough pain. He will try to use Tylenol and ibuprofen. Discharge Plan Triage Chief Complaint: Upper Extremity Injury ED Provider: Sury Dutton Dx/Rx/DC Orders Clinical Impression: Sprain of left shoulder, Rotator cuff sprain Instructions: ED Shoulder Sprain Prescriptions: New oxycodone 5 mg tablet 5 mg PO Q6H PRN (Reason: pain) 3 Days Qty: 10 RF: 0 No Action Aspirin, Baby 2 tab PO DAILY RF: 0 multivitamin [Multiple Vitamins] 1 EACH tablet 1 ea PO DAILY RF: 0 trazodone 50 MG tablet 1 tab PO QHS PRN PRN (Reason: Sleep) RF: 0 lisinopril 20 MG tablet 5 mg PO DAILY RF: 0 metformin 1,000 MG tablet 1 tab PO BID RF: 0 insulin aspart U-100 [Novolog Flexpen U-100 Insulin] 100 UNITS/ML insulin pen 0 units SQ TID RF: 0 insulin aspart U-100 [Novolog Flexpen U-100 Insulin] 100 UNITS/ML insulin pen 50 unit SQ QHS RF: 0 fenofibrate nanocrystallized 145 MG tablet 145 mg PO DAILY RF: 0 sitagliptin [Januvia] 100 MG tablet 100 mg PO DAILY RF: 0 hydrocodone-acetaminophen 1 TABLET tablet 1 - 2 tab PO Q4H PRN PRN (Reason: Pain) Qty: 20 RF: 0 prednisone 20 MG tablet 40 mg PO DAILY Qty: 6 RF: 0 albuterol sulfate [ProAir HFA] 1 PUFF inhaler 2 puff inhalation Q4H PRN PRN (Reason: Cough) Qty: 1 RF: 0 Promethazine/Codeine Soln [Phenergan With Codeine Oral Solution] 5 ML Udc 5 ml PO Q6H PRN PRN (Reason: Cough) Qty: 120 RF: 0 metoprolol tartrate 50 MG tablet 50 mg PO BID RF: 0 Stand Alone Forms: Work Status Form Primary Care Provider: Santana Salinas Referrals: Donnie Deutsch MD [STAFF PHYSICIAN] - As Needed Santana aSlinas MD [Primary Care Provider] - Activity Restrictions/Additional Instructions: Please follow-up with [facility] for Worker's Comp. coverage. You need to see them in the next 3 to 5 days. I anticipate they may send you to orthopedics. Our orthopedic doctor on-call is Dr. Deutsch and his information has been provided for you as needed. Disposition Disposition: Home, Self Care
== END 2022-02-01 18:56 | disposition home or self-care (01) ==
LOC: ED 18:44
PROVIDERS: Emergency Provider Emergency Medicine; PCP Internal Medicine; Visit Provider Emergency Medicine
DX: S43.429A Sprain of unspecified rotator cuff capsule, initial encounter (principal); E11.9 Type 2 diabetes mellitus without complications; Z79.4 Long term (current) use of insulin; Y93.9 Activity, unspecified; E78.5 Hyperlipidemia, unspecified; I10 Essential (primary) hypertension; Y99.0 Civilian activity done for income or pay; W19.XXXA Unspecified fall, initial encounter; Y92.89 Other specified places as the place of occurrence of the external cause; I25.10 Atherosclerotic heart disease of native coronary artery without angina pectoris; Z79.899 Other long term (current) drug therapy; Z79.82 Long term (current) use of aspirin; Z79.52 Long term (current) use of systemic steroids
CPT/HCPCS: 73030; 99282

== ENCOUNTER 2023-12-04 03:10 | Emergency (ER) | payer BC, SELFPAY ==
[2020-01-21 14:26] VITALS: BMI 32.8
[2023-12-04 03:10] VITALS: BP 146/91; PULSE 70; RESP 11; TEMP 36.1; O2SAT 96; BMI 33.8
[2023-12-04] MEDS: diazePAM 5 MG Tablet PO (03:47)
[2023-12-04] MEDS: Ondansetron 4 MG/2 ML Vial IV (03:47)
[2023-12-04] MEDS: 0.9% Normal Saline (1000mL) 1,000 ML 999 ML IV (03:47)
[2023-12-04 03:58] LABS: Absolute Lymphocyte Count 2.14 X10^3/uL (0.83-4.51); Absolute Neutrophil Count 2.6 X10^3/uL (2.0-7.7); Basophil# 0.04 X10^3/uL; Basophil% 0.7 % (0-1); Eosinophil# 0.18 X10^3/uL; Eosinophils% 3.1 % (0-5); Hematocrit 44.5 % (40-54); Hemoglobin 15.3 g/dL (13.0-16.5); Lymphocyte # 2.14 X10^3/ul (0.83-4.51); Lymphocyte % 37.2 % (19-41); Mean Corp Hgb Conc 34.4 g/dL (32-36); Mean Corpuscular Hgb 29.9 pg (27.0-32.0); Mean Corpuscular Volume 87.1 fL (80-94); Monocyte# 0.75 X10^3/uL; NRBC Flagged by Analyzer 0 % (0-5); Neutrophil # 2.64 X10^3/uL (2.7-7.7); Neutrophil % 45.8 % (47-70); Platelet Count 249 K/mm3 (150-450); RBC Distribution Width SD 38.4 fl (35.1-43.9); Red Blood Count 5.11 M/mm3 (4.6-6.2); White Blood Count 5.8 K/mm3 (4.4-11.0)
[2023-12-04 04:10] VITALS: BP 130/79; PULSE 68; RESP 16; O2SAT 98
[2023-12-04 04:13] LABS: Anion Gap 8 (5-15); BUN 20 mg/dL (7-18); Calcium,Total 9.4 mg/dL (8.5-10.1); Chloride 106 mmol/L (98-107); EST Glomerular Filtration Rate 80 mL/min (>60); Est Glom Filt Rate - Afr Amer 97 mL/min (>60); Estimated Creatinine Clearance 93.82 ml/min; Glucose 164 mg/dL (74-106); Potassium 3.6 mmol/L (3.5-5.1); Sodium Level 140 mmol/L (136-145)
--- OUTSIDE RECORDS SUMMARY | 2023-12-04 04:37 | XMS RPT_ITS | CCD ---
Author Name Unknown Address [id number] [place] [address] Organization [facility] Care Team Providers Care Labor Relations Analyst Name Role Phone Santana Carlin MD Primary Care Provider Dagoberto Ford MD Unavailable Dagoberto Ford MD Unavailable Lee Ordonez DO Unavailable TAE OSEGUERA MD Attending Unavailable BRAD BUCHANAN., DR. GUERRA Primary Care TAE Gallegos MD Referring Unavailable DR SANTANA CARLIN MD Primary Care Physician Santana Carlin MD Primary Care Provider Dagoberto Ford MD Unavailable Dagoberto Ford MD Unavailable Lee Ordonez DO Unavailable OLDER, JANNETTE Attending Unavailable SANTANA CARLIN Primary Care Unavailable REINALDO WOLF Attending Unavailable RENAY WARE Referring Unavailable SANTANA CARLIN Primary Care Unavailable SANTANA CARLIN Primary Care Unavailable SANTANA CARLIN Attending Unavailable SANTANA CARLIN Referring Unavailable SANTANA CARLIN Primary Care Unavailable SANTANA CARLIN Primary Care Unavailable BILL NUNES Referring Unavailable SANTANA CARLIN Primary Care Unavailable BILL NUNES Attending Unavailable SANTANA CARLIN Primary Care Unavailable TONYA SAUNDERS Attending Unavailable SANTANA CARLIN Primary Care Unavailable TONYA SAUNDERS Referring Unavailable SANTANA CARLIN Primary Care Unavailable TONYA SAUNDERS Referring Unavailable SANTANA CARLIN Primary Care Unavailable SANTANA CARLIN Attending Unavailable SANTANA CARLIN Primary Care Unavailable SANTANA CARLIN Primary Care Unavailable SANTANA CARLIN Referring Unavailable SANTANA CARLIN Primary Care Unavailable BALTAZAR WAREANDA Attending Unavailable SANTANA CARLIN Referring Unavailable SANTANA CARLIN Primary Care Unavailable Allergies Allergy Classification Reported Allergen(s) Allergy Type Date of Onset Reaction(s) Facility (19 sources) atorvastatin; Translations: [ATORVASTATIN] Drug Allergy 0 Myalgia [facility] Work Phone: (19 sources) Metoprolol; Translations: [METOPROLOL] Drug Allergy 0 Other: See Comments [facility] Work Phone: (19 sources) Seasonal allergy; Translations: [SEASONAL ALLERGIES] Allergy to substance 1 Cough [facility] Work Phone: Medications Current Medications Medication Drug Class(es) Dates Sig (Normalized) Sig (Original) ALPRAZolam 2 mg oral tablet (1 source) Benzodiazepine Start: 03-06-2022 End: 03-13-2022 ALPRAZolam (XANAX) 2 mg tablet Indications: Situational anxiety Take 1 tablet by mouth once daily as needed for sedation (30 minutes prior to procedures.) for up to 7 days. 2 tablet 0 03/06/2022 03/13/2022 Active Completed/Discontinued Medications Medication Drug Class(es) Dates Sig (Normalized) Sig (Original) aspirin 81 mg delayed release oral tablet (18 sources) Platelet Aggregation Inhibitor, Nonsteroidal Anti-inflammatory Drug Start: 04-18-2023 take 2 tablets by mouth once daily aspirin, enteric coated (ASPIRIN, ENTERIC COATED) 81 mg EC tablet Indications: Coronary artery disease involving [place] coronary artery of [place] heart without angina pectoris Take 2 tablets by mouth once daily. 180 tablet 3 04/18/2023 Active Problems Active Problems Problem Classification Problem Date Documented Date Episodic/Chronic Anxiety disorders (15 sources) Anxiety; Translations: [Other specified anxiety disorders] Onset: 06-26-2022 Chronic Coronary atherosclerosis and other heart disease (20 sources) Coronary atherosclerosis; Translations: [Atherosclerotic heart disease of [place] coronary artery without angina pectoris] Onset: 08-12-2019 11-04-2019 Chronic Diabetes mellitus with complications (20 sources) Type 2 diabetes mellitus; Translations: [Type 2 diabetes mellitus with mild nonproliferative diabetic retinopathy without macular edema, bilateral] Onset: 10-24-2016 10-24-2016 Chronic Disorders of lipid metabolism (20 sources) Hyperlipidemia; Translations: [Hyperlipidemia, unspecified] Onset: 05-26-2010 05-26-2010 Chronic Essential hypertension (20 sources) Essential hypertension; Translations: [Essential (primary) hypertension] Onset: 11-04-2019 11-04-2019 Chronic Immunizations and screening for infectious disease (3 sources) Vaccination needed; Translations: [Encounter for immunization] Onset: 06-04-2023 Episodic Open wounds of extremities (1 source) Open wound of left foot; Translations: [Unspecified open wound, left foot, initial encounter] Episodic Osteoarthritis (1 source) Primary arthrosis of first carpometacarpal joints, bilateral; Translations: [Bilateral primary osteoarthritis of first carpometacarpal joints] Chronic Other and unspecified benign neoplasm (1 source) History of polyp of colon; Translations: [Personal history of colonic polyps] 05-19-2023 Episodic Other and unspecified benign neoplasm (1 source) Personal history of colonic polyps; Translations: [History of colonic polyps] Onset: 06-30-2023 Episodic Other circulatory disease (1 source) Ecchymosis; Translations: [Hemorrhage, not elsewhere classified] Episodic Other connective tissue disease (1 source) Pain in left lower limb; Translations: [Pain in left leg] Episodic Other ear and sense organ disorders (1 source) Hearing loss of left ear; Translations: [Impacted cerumen, left ear] Episodic Other inflammatory condition of skin (18 sources) Psoriasis; Translations: [Psoriasis, unspecified] Onset: 06-14-2013 06-14-2013 Chronic Other non-traumatic joint disorders (1 source) Shoulder pain; Translations: [Pain in left shoulder] Episodic Other nutritional; endocrine; and metabolic disorders (18 sources) Obese class I; Translations: [Obesity, unspecified] Onset: 07-29-2019 07-29-2019 Chronic Other screening for suspected conditions (not mental disorders or infectious disease) (3 sources) Patient encounter status; Translations: [Encounter for screening for malignant neoplasm of colon] Onset: 06-30-2023 Episodic Other upper respiratory disease (19 sources) Chronic hypertrophic rhinitis; Translations: [Chronic rhinitis] Onset: 11-23-2015 11-23-2015 Chronic Other upper respiratory disease (1 source) Chronic rhinitis; Translations: [Chronic hypertrophic rhinitis] Onset: 11-23-2015 Chronic Other upper respiratory infections (1 source) Acute maxillary sinusitis; Translations: [Acute maxillary sinusitis, unspecified] Episodic Residual codes; unclassified (1 source) Edema of lower extremity; Translations: [Localized edema] Episodic Residual codes; unclassified (2 sources) Localized edema; Translations: [Leg edema, left] Onset: 02-20-2023 Episodic Sprains and strains (1 source) Sprain of shoulder; Translations: [Other sprain of left shoulder joint, subsequent encounter] Episodic Past or Other Problems Problem Classification Problem Date Documented Date Episodic/Chronic E Codes: Fall (2 sources) Fall; Translations: [Unspecified fall, initial encounter] Onset: 02-20-2023 Episodic Other aftercare (1 source) care home (current) use of insulin; Translations: [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, with long-term current use of insulin, macular edema presence unspecified (HCC)] Onset: 10-24-2016 Episodic Other circulatory disease (1 source) Hemorrhage, not elsewhere classified; Translations: [Ecchymosis] Onset: 02-20-2023 Episodic Other connective tissue disease (1 source) Pain in left leg; Translations: [Pain of left lower extremity] Onset: 02-20-2023 Episodic Other connective tissue disease (1 source) Pain in right finger(s); Translations: [Bilateral thumb pain] Onset: 12-12-2022 Episodic Other connective tissue disease (1 source) Pain in left finger(s); Translations: [Bilateral thumb pain] Onset: 12-12-2022 Episodic Other male genital disorders (4 sources) Disorder of male genital organ; Translations: [Hydrocele, unspecified] Onset: 12-11-2021 12-11-2021 Episodic Residual codes; unclassified (19 sources) Insomnia; Translations: [Insomnia, unspecified] Onset: 03-11-2011 03-11-2011 Episodic Results Test Name Value Interpretation Reference Range Facil ity Vital Signs Date Time Vital Sign Value Performing Clinician Faci lity 06-04-2023 15:49-0400 Diastolic blood pressure 78 mm[Hg] Jannette Older ETCHER HAND.DIESEL LUBE TECH Work Phone: [facility] 06-04-2023 15:49-0400 Systolic blood pressure 130 mm[Hg] Jannette Older ETCHER HAND.DIESEL LUBE TECH Work Phone: [facility] 06-04-2023 15:39-0400 Body weight 106.59 kg Jannette Older ETCHER HAND.D[employer]EL LUBE TECH Work Phone: [facility] 06-04-2023 15:39-0400 Heart rate 73 /min Jannette Older ETCHER HAND.DIESEL LUBE TECH Work Phone: [facility] 06-04-2023 15:39-0400 Respiratory rate 12 /min Jannette Older ETCHER HAND.DIESEL LUBE TECH Work Phone: [facility] 06-04-2023 15:39-0400 SaO2% (BldA) [Mass fraction] 97 % Jannette Older ETCHER HAND.DIESEL LUBE TECH Work Phone: [facility] 05-06-2023 16:03-0400 Body height 177.8 cm Renay Vidor PA-C Work Phone: [facility] 05-06-2023 16:03-0400 Body temperature 97.81 [degF] Renay Chaz PA-C Work Phone: [facility] 05-06-2023 16:03-0400 Body weight 106.5 kg Renay Chaz PA-C Work Phone: [facility] 05-06-2023 16:03-0400 Diastolic blood pressure 70 mm[Hg] Renay Vidor PA-C Work Phone: [facility] 05-06-2023 16:03-0400 Heart rate 78 /min Renay Vidor PA-C Work Phone: [facility] 05-06-2023 16:03-0400 SaO2% (BldA) [Mass fraction] 99 % Renay Chaz PA-C Work Phone: [facility] 05-06-2023 16:03-0400 Systolic blood pressure 132 mm[Hg] Renay Chaz PA-C Work Phone: [facility] 02-20-2023 10:32-0400 Body temperature 97 [degF] Tonya Older ETCHER HAND.DIESEL LUBE TECH Work Phone: [facility] 02-20-2023 10:32-0400 Body weight 106.59 kg Tonya Older ETCHER HAND.DIESEL LUBE TECH Work Phone: [facility] 02-20-2023 10:32-0400 Diastolic blood pressure 70 mm[Hg] Tonya Older ETCHER HAND.DIESEL LUBE TECH Work Phone: [facility] 02-20-2023 10:32-0400 Heart rate 88 /min Tonya Older ETCHER HAND.DIESEL LUBE TECH Work Phone: [facility] 02-20-2023 10:32-0400 Respiratory rate 16 /min Tonya Older ETCHER HAND.DIESEL LUBE TECH Work Phone: [facility] 02-20-2023 10:32-0400 SaO2% (BldA) [Mass fraction] 99 % Tonya Older ETCHER HAND.DIESEL LUBE TECH Work Phone: [facility] 02-20-2023 10:32-0400 Systolic blood pressure 142 mm[Hg] Tonya Older ETCHER HAND.DIESEL LUBE TECH Work Phone: [facility] 11-20-2022 15:34-0500 Diastolic blood pressure 80 mm[Hg] Mi Nurse Work Phone: [facility] 11-20-2022 15:34-0500 Heart rate 78 /min Mi Nurse Work Phone: [facility] 11-20-2022 15:34-0500 Systolic blood pressure 141 mm[Hg] Mi Nurse Work Phone: [facility] 10-21-2022 17:08-0500 Diastolic blood pressure 79 mm[Hg] Santana Carlin MD Work Phone: [facility] 10-21-2022 17:08-0500 Heart rate 84 /min Santana Carlin MD Work Phone: [facility] 10-21-2022 17:08-0500 Systolic blood pressure 137 mm[Hg] Santana Carlin MD Work Phone: [facility] 10-21-2022 17:01-0500 Body height 177.8 cm Santana Carlin MD Work Phone: [facility] 10-21-2022 17:01-0500 Body temperature 97.59 [degF] Santana Carlin MD Work Phone: [facility] 10-21-2022 17:01-0500 Body weight 103.42 kg Santana Carlin MD Work Phone: [facility] 10-21-2022 17:01-0500 Respiratory rate 12 /min Santana Carlin MD Work Phone: [facility] 09-18-2022 15:58-0500 Body temperature 96.91 [degF] Jojo Athy PA-C Work Phone: [facility] 09-18-2022 15:58-0500 Body weight 106.59 kg Jojo Athy PA-C Work Phone: [facility] 09-18-2022 15:58-0500 Diastolic blood pressure 82 mm[Hg] Jojo Athy PA-C Work Phone: [facility] 09-18-2022 15:58-0500 Heart rate 76 /min Jojo Athy PA-C Work Phone: [facility] 09-18-2022 15:58-0500 Respiratory rate 16 /min Jojo Athy PA-C Work Phone: [facility] 09-18-2022 15:58-0500 SaO2% (BldA) [Mass fraction] 96 % Jojo Athy PA-C Work Phone: [facility] 09-18-2022 15:58-0500 Systolic blood pressure 142 mm[Hg] Jojo Athy PA-C Work Phone: [facility] 04-18-2022 16:50-0400 Diastolic blood pressure 70 mm[Hg] Santana Carlin MD Work Phone: [facility] 04-18-2022 16:50-0400 Systolic blood pressure 122 mm[Hg] Santana Carlin MD Work Phone: [facility] 04-18-2022 16:00-0400 Body temperature 96.3 [degF] Santana Carlin MD Work Phone: [facility] 04-18-2022 16:00-0400 Body weight 102.06 kg Santana Carlin MD Work Phone: [facility] 04-18-2022 16:00-0400 Heart rate 72 /min Santana Carlin MD Work Phone: [facility] 04-18-2022 16:00-0400 Respiratory rate 12 /min Santana Carlin MD Work Phone: [facility] 02-01-2022 16:08-0400 Body height 177.8 cm Santana Carlin MD Work Phone: [facility] 02-01-2022 16:08-0400 Body temperature 95.5 [degF] Santana Carlin MD Work Phone: [facility] 02-01-2022 16:08-0400 Body weight 103.42 kg Santana Carlin MD Work Phone: [facility] 02-01-2022 16:08-0400 Diastolic blood pressure 72 mm[Hg] Santana Carlin MD Work Phone: [facility] 02-01-2022 16:08-0400 Heart rate 82 /min Santana Carlin MD Work Phone: [facility] 02-01-2022 16:08-0400 Respiratory rate 12 /min Santana Carlin MD Work Phone: [facility] 02-01-2022 16:08-0400 SaO2% (BldA) [Mass fraction] 97 % Santana Carlin MD Work Phone: [facility] 02-01-2022 16:08-0400 Systolic blood pressure 130 mm[Hg] Santana Carlin MD Work Phone: [facility] Encounters Encounter Date Encounter Type Care Provider Facility Start: 06-30-2023 End: 06-30-2023 ambulatory REINALDO WOLF Facility:[facility] Start: 06-19-2023 Refill Santana groves MD Work Phone: Internal Medicine [place] Procedures Date Procedure Procedure Detail Performing Clinician Start: 06-04-2023 INFLUENZA VACCINE, A GE 6 MO - 64 YR, QUADRIVALENT (AFLURIA, FLULAVAL, FLUZONE) Jannette Older ETCHER HAND.DIESEL LUBE TECH Work Phone: Start: 04-16-2022 Adult depression scr eening assessment Santana Carlin MD Work Phone: Start: 12-03-2021 Colonoscopy Santana Lagunas MD Work Phone: Start: 10-19-2021 Adult depression scr eening assessment Santana Carlin MD Work Phone: Start: 09-24-2019 History of coronary artery bypass grafting S/P CABG x 3 Santana Carlin MD Work Phone: Plan of Treatment Date Care Activity Detail Author Start: 03-15-2027 Urine microalbumin profile [facility] Start: 10-06-2026 PROSTATE CANCER SCRE ENING DISCUSSION PROSTATE CANCER SCREENING DISCUSSION [facility] Start: 06-04-2024 Annual PCP Team Architectural Design Professor karo Disease Visit Annual PCP Team Chronic Disease Visit [facility] Start: 06-04-2024 BP Controlled (<130/80) BP Controlle d (<130/80) [facility] Start: 04-26-2024 Hepatitis B screening URINE AL BUMIN:CREATININE RATIO [facility] Start: 04-26-2024 Hepatitis B surface antibody level LDL CHOLESTEROL [facility] Start: 04-18-2024 3 comp foot exam completed DIABETIC FOOT EXAM [facility] Start: 04-18-2024 ANNUAL PCP TEAM KNOWLEDGE ENGINEER KARO DISEASE VISIT ANNUAL PCP TEAM CHRONIC DISEASE VISIT [facility] Start: 02-21-2024 ANNUAL PCP TEAM KNOWLEDGE ENGINEER KARO DISEASE VISIT ANNUAL PCP TEAM CHRONIC DISEASE VISIT [facility] Start: 10-27-2023 Hemoglobin A1c/Hemoglobin.total in Blood HBA1C [facility] Start: 10-21-2023 3 comp foot exam completed DIABETIC FOOT EXAM [facility] Start: 10-21-2023 ANNUAL PCP TEAM KNOWLEDGE ENGINEER KARO DISEASE VISIT ANNUAL PCP TEAM CHRONIC DISEASE VISIT [facility] Start: 06-20-2023 Hepatitis C antibody , confirmatory test Dilated Retinal Exam [facility] Immunizations Immunization Date Immunization Notes Care Provider Fa pilo 06-04-2023 influenza, injectabl e, quadrivalent, contains preservative Jannette Older ETCHER HAND.DIESEL LUBE TECH Work Phone: [facility] 04-18-2022 pneumococcal Conjuga te, unspecified formulation Santana Carlin MD Work Phone: [facility] Work Phone: 04-18-2022 pneumococcal (PCV20) vaccine, 20 valent (PREVNAR 20) Santana Carlin MD Work Phone: [facility] Work Phone: 07-02-2021 COVID-19 vaccine, ag e 12+ yr (PFIZER-BIONTECH - PURPLE TOP) Santana Carlin MD Work Phone: [facility] Work Phone: 12-26-2020 COVID-19 vaccine, ag e 12+ yr (PFIZER-BIONTECH - PURPLE TOP) Santana Carlin MD Work Phone: [facility] Work Phone: 12-05-2020 COVID-19 vaccine, ag e 12+ yr (PFIZER-BIONTECH - PURPLE TOP) Santana Carlin MD Work Phone: [facility] Work Phone: 01-25-2019 zoster vaccine recombinant Santana Carlin MD Work Phone: [facility] Work Phone: 01-22-2018 zoster vaccine recombinant Santana Carlin MD Work Phone: [facility] 06-18-2017 influenza, seasonal, injectable Santana Carlin MD Work Phone: [facility] 03-15-2017 tetanus toxoid, redu dawna diphtheria toxoid, and acellular pertussis vaccine, adsorbed Santana Carlin MD Work Phone: [facility] Work Phone: 07-01-2016 influenza, seasonal, injectable Santana Carlin MD Work Phone: [facility] 07-06-2015 influenza, seasonal, injectable Santana Carlin MD Work Phone: [facility] Work Phone: 06-14-2013 influenza virus vacc ine, unspecified formulation Santana Carlin MD Work Phone: [facility] 08-24-2012 influenza virus vacc ine, unspecified formulation Santana Carlin MD Work Phone: [facility] Work Phone: 06-14-2011 pneumococcal polysaccharide vaccine, 23 valent Santana Carlin MD Work Phone: [facility] 03-11-2011 tetanus toxoid, redu dawna diphtheria toxoid, and acellular pertussis vaccine, adsorbed Santana Carlin MD Work Phone: [facility] Work Phone: Payers Date Payer Category Payer Unknown [id number] 2021 Unknown TASHA DE [employer] [place]UENTE PPO [id number] 2021-Present [phone] [address] [place] [id number] PPO [id number] 2021 Unknown [id number] 2021 Unknown [id number] 1960 Unknown [id number] Social History Date Type Detail Facility Start: 02-02-2016 End: 09-18-2022 Tobacco smoking status NHIS Never smoked tobacco [facility] Start: 02-02-2016 End: 09-18-2022 Tobacco use and exposure Smokeless tobacco non-user [facility] Start: 02-01-2022 End: 06-04-2023 Alcohol intake Ex-drinker (finding) [facility] Start: 10-19-2021 End: 04-17-2022 History SDOH Alcohol Frequency 1 [facility] Start: 04-06-2020 End: 04-17-2022 History SDOH Social Connections Phone 3 [facility] Start: 04-06-2020 End: 04-17-2022 History SDOH Social Connections Get Together 2 [facility] Start: 10-19-2021 End: 04-17-2022 History SDOH Physical Activity MPS 4 [facility] Start: 04-06-2020 End: 04-17-2022 History SDOH Financial 5 [facility] Start: 04-06-2020 Education 18 [facility] Start: 1960 Sex Assigned At Male [facility] Start: 01-22-2022 End: 04-18-2022 Exposure to SARS-CoV-2 (event) Not sure [facility] Work Phone: Tobacco smoking status No Smokin g Status Entered [facility] Start: 10-21-2022 History SDOH Physical Activity DPW 0 [facility] Start: 04-16-2022 End: 04-17-2023 History of Social function [facility] Start: 04-16-2022 End: 04-17-2023 Social connection and isolation panel [facility] Do you belong to any clubs or organizations such as taoism groups, unions, fraternal or athletic groups, or school groups? No [facility] Are you now , , , , never or living with a partner? [facility] How often to you hav e a drink containing alcohol? Never [facility] How many standard dr inks containing alcohol do you have on a typical day? Patient does not drink [facility] Do you feel stress - tense, restless, nervous, or anxious, or unable to sleep at night because your mind is troubled all the time - these days [OSQ] Rather much [facility] (I/We) worried iram er (my/our) food would run out before (I/we) got money to buy more. Never true [facility] Start: 11-27-2021 Sexual orientation Heterosexual (finding) [facility] Medical Equipment Procedure Code Equipment Code Equipment Original Text Equipment Identifier Dates Cameron Thk1.65mm Rectangle Ptfe 4.5x6mm Cardiovascular [place] - [id number] Start: 09-23-2019 Sensor Cdi Hepar in Shunt 1.2ml System 500 Sterile Disposable - [id number] Start: 09-23-2019 Plate Sternalock Federico Bone 8 Hole Sternum - [id number] Start: 09-23-2019 Screw Sternalock Federico 2.4mm Gold 14mm Bone Self Drill Lock Primary Closure - [id number] Start: 09-23-2019 Screw Sternalock Federico 2.4mm Gold 16mm Bone Self Drill Lock Primary Closure - [id number] Start: 09-23-2019 Use with insulin 5 times daily as directed. Start: 04-12-2021 End: 06-19-2023 Functional Status Date Assessment Result Facility 06-06-2022 Functional Status Home Living Ad ditional Information Objective: Vitals: HR: 75 SpO2%: 95% BP: 150/86 ROM/ Strength: See chart for shoulder Palpation: Denies tenderness to palpation anterior and lateral shoulder. No obvious bone or muscle deformities observed or present. Reflexes: 1+ bilat biceps and triceps Special Tests: Sandra Cruz: - Infraspinatus: - Painful arc: - Drop ARM:- ER lag sign: - AC compression: - Belly press; some pain noted on L s ulder [facility] Mental Status Date Assessment Result Facility 06-06-2022 Mental Status Orientation Asse ssment Oriented x 4 [facility] Clinical Notes 03-29-2020 to 06-19-2023 Telephone Encounter - Corina Joshi LPN - 06/19/2023 11:04 AM EDTTelephone Encounter - Maude Echols - 06/19/2023 9:57 AM Jannette Hughes APRN.PEPPER - 06/04/2023 3:42 PM EDTPatient Instructions Note Date & Type Note Facility 06-19-2023 Miscellaneous Notes Last office visit: 06/04/2023 Annual: 12/04/2023 Corina Joshi LPN Patient has been identified by name and date of : Yes Requested Prescriptions Pending Prescriptions Disp Refills insulin needles, DISPOSABLE, (EASY TOUCH) 31 gauge x 5/16 450 Each 3 Sig: Use with insulin 5 times daily as directed. Patient is asking for 90 days with 3 refills for insurance reasons. RX INSTRUCTIONS: Patient aware RX will be sent to pharmacy. No need to notify patient. Maude Echols documented in this encounter [facility] 06-04-2023 Note HNO ID: [id number] Author: Jannette Saunders APRN.DIESEL LUBE TECH Service: ? Author Type: Nurse Practitioner Type: Progress Notes Filed: 06/04/2023 3:59 PM Note Text: CC Patient presents with: 6 week follow up HPI Quique Escamilla is a 63 year old male who presents to the office for blood pressure. His visit today is for follow-up. Patient was last seen for this approximately 6 weeks ago Medication changes: Yes Coreg increased to 6.25 mg BID Taking all medications as prescribed: Yes Side effects: No Home BP's: No Denies: headache, chest pain, palpitations, dyspnea, and peripheral edema. Last 4 Encounter BP Readings: Date: BP: 06/04/2023 140/82 05/06/2023 132/70 04/18/2023 149/83[bp jacky average[ 02/20/2023 142/70 Last 3 Encounter Wt Readings: Date: Wt: 06/04/2023 106.6 kg (235 lb) 05/06/2023 106.5 kg (234 lb 12.8 oz) 04/18/2023 106.1 kg (234 lb) REVIEW OF SYSTEMS See HPI PAST MEDICAL HISTORY Diagnosis Date Abnormal EKG [address] changes, stress test neg. Anxiety Bladder stone 02/13/2016 BPH (benign prostatic hypertrophy) with urinary obstruction 02/13/2016 Complex renal cyst 02/13/2016 Coronary artery disease involving [place] coronary artery of [place] heart with angina pectoris (HCC) 08/12/2019 Fracture of phalanx of left foot, closed 03/15/2017 Hydrocele Hyperlipidemia Hypertension Internal hemorrhoids without mention of complication Kidney stone 02/13/2016 Nontraumatic pain of right shoulder 03/29/2020 Right hydrocele 12/11/2021 S/P CABG x 3 09/24/2019 Spondylolisthesis, grade 1 2007 L5S1 radiculopathy on nerve testing Type II or unspecified type diabetes mellitus without mention of complication, uncontrolled 12/21/2010 Winged scapula, right 01/12/2020 PAST SURGICAL HISTORY Procedure Laterality Date CABG (3) VEIN GRAFTS AND ARTERIAL GRAFT(S) 09/23/2019 COLONOSCOPY 12/03/2021 repeat in 1 year, due to poor colon prep. COLONOSCOPY FLX DX W/COLLJ SPEC WHEN PFRMD 09/02/2011 REMOVAL OF HYDROCELE Right 12/11/2021 ALLERGIES Atorvastatin, Metoprolol, and Seasonal Allergies MEDICATIONS metFORMIN (GLUCOPHAGE) 1,000 mg tablet Take 1 tablet by mouth twice daily with meals. montelukast (SINGULAIR) 10 mg tablet Take 1 tablet by mouth daily at bedtime. SITagliptin phosphate (JANUVIA) 100 mg tablet Take 1 tablet by mouth once daily. fenofibrate nanocrystallized (TRICOR) 145 mg tablet Take 1 tablet by mouth once daily. insulin lispro (HUMALOG KWIKPEN) 100 unit/mL 16 units with breakfast. 16 units with lunch. 20 units with supper. insulin NPH subcutaneous pen 25 units with breakfast. 30 units with dinner. pravastatin (PRAVACHOL) 10 mg tablet Take 1 tablet by mouth once daily. aspirin, enteric coated (ASPIRIN, ENTERIC COATED) 81 mg EC tablet Take 2 tablets by mouth once daily. loratadine (CLARITIN) 10 mg tablet Take 1 tablet by mouth once daily as needed for cold/allergy symptoms. carvedilol (COREG) 6.25 mg tablet Take 1 tablet by mouth twice daily. traZODone (DESYREL) 50 mg tablet Take 2 tablets by mouth daily at bedtime. lisinopril (ZESTRIL, PRINIVIL) 40 mg tablet Take 1 tablet by mouth once daily. insulin needles, DISPOSABLE, (EASY TOUCH) 31 gauge x 5/16 Use with insulin 5 times daily as directed. vitamin B complex (B COMPLEX ORAL) Take 1 tablet by mouth once daily. multivitamin tablet Take 1 tablet by mouth once daily. FAMILY HISTORY Problem Relation Age of Onset No Known Problems Mother Genitourinary () Father kidney stones Prostate Cancer Father 82 Hypertension Sister Genitourinary () Sister kidney stones None Brother Colon Cancer Maternal Grandmother Social History Tobacco Use Smoking status: Never Smokeless tobacco: Never Vaping Use Vaping Use: Never used Substance Use Topics Alcohol use: Not Currently Drug use: No PHYSICAL EXAM BP 130/78 Pulse 73 Resp 12 Wt 106.6 kg (235 lb) SpO2 97% BMI 33.72 kg/m? General Appearance: well appearing, in no acute distress, alert Pysch: mood and affect broad and appropriate DATA REVIEWED: Most recent labs ASSESSMENT/PLAN: 1. Essential hypertension - ICD9: 401.9, ICD10: I10 (primary diagnosis) - Controlled - Continue current medications - Recommend home blood pressure monitoring, to bring results to next visit - Encouraged sodium restriction, DASH or Mediterranean diet 2. Encounter for immunization - ICD9: V03.89, ICD10: Z23 - INFLUENZA VACCINE, AGE 6 MO - 64 YR, QUADRIVALENT (AFLURIA, FLULAVAL, FLUZONE) Prescription instructions reviewed with patient as applicable. Potential red flag symptoms discussed with the patient. Reviewed appropriate action plan to take if red flag symptoms occur. Patient agreeable to treatment plan Jannette Saunders APRN.[facility] 06-04-2023 History of Presen t illness Narrative CC Patient presents with: 6 week follow up HPI Quique Escamilla is a 63 year old male who presents to the office for blood pressure. His visit today is for follow-up. Patient was last seen for this approximately 6 weeks ago Medication changes: Yes Coreg increased to 6.25 mg BID Taking all medications as prescribed: Yes Side effects: No Home BP's: No Denies: headache, chest pain, palpitations, dyspnea, and peripheral edema. Last 4 Encounter BP Readings: Date: BP: 06/04/2023 140/82 05/06/2023 132/70 04/18/2023 149/83[bp jacky average[ 02/20/2023 142/70 Last 3 Encounter Wt Readings: Date: Wt: 06/04/2023 106.6 kg (235 lb) 05/06/2023 106.5 kg (234 lb 12.8 oz) 04/18/2023 106.1 kg (234 lb) REVIEW OF SYSTEMS See HPI PAST MEDICAL HISTORY Diagnosis Date Abnormal EKG [address] changes, stress test neg. Anxiety Bladder stone 02/13/2016 BPH (benign prostatic hypertrophy) with urinary obstruction 02/13/2016 Complex renal cyst 02/13/2016 Coronary artery disease involving [place] coronary artery of [place] heart with angina pectoris (HCC) 08/12/2019 Fracture of phalanx of left foot, closed 03/15/2017 Hydrocele Hyperlipidemia Hypertension Internal hemorrhoids without mention of complication Kidney stone 02/13/2016 Nontraumatic pain of right shoulder 03/29/2020 Right hydrocele 12/11/2021 S/P CABG x 3 09/24/2019 Spondylolisthesis, grade 1 2007 L5S1 radiculopathy on nerve testing Type II or unspecified type diabetes mellitus without mention of complication, uncontrolled 12/21/2010 Winged scapula, right 01/12/2020 PAST SURGICAL HISTORY Procedure Laterality Date CABG (3) VEIN GRAFTS & ARTERIAL GRAFT(S) 09/23/2019 COLONOSCOPY 12/03/2021 repeat in 1 year, due to poor colon prep. COLONOSCOPY FLX DX W/COLLJ SPEC WHEN PFRMD 09/02/2011 REMOVAL OF HYDROCELE Right 12/11/2021 ALLERGIES Atorvastatin, Metoprolol, and Seasonal Allergies MEDICATIONS metFORMIN (GLUCOPHAGE) 1,000 mg tablet Take 1 tablet by mouth twice daily with meals. montelukast (SINGULAIR) 10 mg tablet Take 1 tablet by mouth daily at bedtime. SITagliptin phosphate (JANUVIA) 100 mg tablet Take 1 tablet by mouth once daily. fenofibrate nanocrystallized (TRICOR) 145 mg tablet Take 1 tablet by mouth once daily. insulin lispro (HUMALOG KWIKPEN) 100 unit/mL 16 units with breakfast. 16 units with lunch. 20 units with supper. insulin NPH subcutaneous pen 25 units with breakfast. 30 units with dinner. pravastatin (PRAVACHOL) 10 mg tablet Take 1 tablet by mouth once daily. aspirin, enteric coated (ASPIRIN, ENTERIC COATED) 81 mg EC tablet Take 2 tablets by mouth once daily. loratadine (CLARITIN) 10 mg tablet Take 1 tablet by mouth once daily as needed for cold/allergy symptoms. carvedilol (COREG) 6.25 mg tablet Take 1 tablet by mouth twice daily. traZODone (DESYREL) 50 mg tablet Take 2 tablets by mouth daily at bedtime. lisinopril (ZESTRIL, PRINIVIL) 40 mg tablet Take 1 tablet by mouth once daily. insulin needles, DISPOSABLE, (EASY TOUCH) 31 gauge x 5/16 Use with insulin 5 times daily as directed. vitamin B complex (B COMPLEX ORAL) Take 1 tablet by mouth once daily. multivitamin tablet Take 1 tablet by mouth once daily. FAMILY HISTORY Problem Relation Age of Onset No Known Problems Mother Genitourinary () Father kidney stones Prostate Cancer Father 82 Hypertension Sister Genitourinary () Sister kidney stones None Brother Colon Cancer Maternal Grandmother Social History Tobacco Use Smoking status: Never Smokeless tobacco: Never Vaping Use Vaping Use: Never used Substance Use Topics Alcohol use: Not Currently Drug use: No PHYSICAL EXAM BP 130/78 Pulse 73 Resp 12 Wt 106.6 kg (235 lb) SpO2 97% BMI 33.72 kg/m General Appearance: well appearing, in no acute distress, alert Pysch: mood and affect broad and appropriate DATA REVIEWED: Most recent labs ASSESSMENT/PLAN: 1. Essential hypertension - ICD9: 401.9, ICD10: I10 (primary diagnosis) - Controlled - Continue current medications - Recommend home blood pressure monitoring, to bring results to next visit - Encouraged sodium restriction, DASH or Mediterranean diet 2. Encounter for immunization - ICD9: V03.89, ICD10: Z23 - INFLUENZA VACCINE, AGE 6 MO - 64 YR, QUADRIVALENT (AFLURIA, FLULAVAL, FLUZONE) Prescription instructions reviewed with patient as applicable. Potential red flag symptoms discussed with the patient. Reviewed appropriate action plan to take if red flag symptoms occur. Patient agreeable to treatment plan Jannette Saunders APRN.CNP documented in this encounter [facility] 05-06-2023 Note HNO ID: [id number] Author: Renay Ware PA-C Service: ? Author Type: Physician Builder Operator Type: Progress Notes Filed: 05/19/2023 5:31 AM Note Text: HISTORY AND PHYSICAL Quique Lenz Twila 1960 REFERRING PHYSICIAN: Santana Carlin MD CHIEF COMPLAINT: Consult (colonoscopy) HPI: The patient is a 63 year old male referred for endoscopy. Quique notes no colon complaints. Patient denies any change in bowel habits, weight changes, blood in stools, black tarry stools or abdominal pain. Denies family history of colon issues. The patient notes no upper GI complaints. Quique has undergone prior endoscopy. Last colonoscopy 12/03/[address] Wolf with removal of adenomatous polyps. Bowel prep was noted to be unsatisfactory at that time. PAST MEDICAL HISTORY Diagnosis Date Abnormal EKG [address] changes, stress test neg. Anxiety Bladder stone 02/13/2016 BPH (benign prostatic hypertrophy) with urinary obstruction 02/13/2016 Complex renal cyst 02/13/2016 Coronary artery disease involving [place] coronary artery of [place] heart with angina pectoris (HCC) 08/12/2019 Fracture of phalanx of left foot, closed 03/15/2017 Hydrocele Hyperlipidemia Hypertension Internal hemorrhoids without mention of complication Kidney stone 02/13/2016 Nontraumatic pain of right shoulder 03/29/2020 Right hydrocele 12/11/2021 S/P CABG x 3 09/24/2019 Spondylolisthesis, grade 1 2008 L5S1 radiculopathy on nerve testing Type II or unspecified type diabetes mellitus without mention of complication, uncontrolled 12/21/2010 Winged scapula, right 01/12/2020 PAST SURGICAL HISTORY Procedure Laterality Date CABG (3) VEIN GRAFTS AND ARTERIAL GRAFT(S) 09/23/2019 COLONOSCOPY 12/03/2021 repeat in 1 year, due to poor colon prep. COLONOSCOPY FLX DX W/COLLJ SPEC WHEN PFRMD 09/02/2011 REMOVAL OF HYDROCELE Right 12/11/2021 Current Outpatient Medications Medication Sig metFORMIN (GLUCOPHAGE) 1,000 mg tablet Take 1 tablet by mouth twice daily with meals. montelukast (SINGULAIR) 10 mg tablet Take 1 tablet by mouth daily at bedtime. SITagliptin phosphate (JANUVIA) 100 mg tablet Take 1 tablet by mouth once daily. fenofibrate nanocrystallized (TRICOR) 145 mg tablet Take 1 tablet by mouth once daily. insulin lispro (HUMALOG KWIKPEN) 100 unit/mL 16 units with breakfast. 16 units with lunch. 20 units with supper. insulin NPH subcutaneous pen 25 units with breakfast. 30 units with dinner. pravastatin (PRAVACHOL) 10 mg tablet Take 1 tablet by mouth once daily. aspirin, enteric coated (ASPIRIN, ENTERIC COATED) 81 mg EC tablet Take 2 tablets by mouth once daily. loratadine (CLARITIN) 10 mg tablet Take 1 tablet by mouth once daily as needed for cold/allergy symptoms. carvedilol (COREG) 6.25 mg tablet Take 1 tablet by mouth twice daily. traZODone (DESYREL) 50 mg tablet Take 2 tablets by mouth daily at bedtime. lisinopril (ZESTRIL, PRINIVIL) 40 mg tablet Take 1 tablet by mouth once daily. insulin needles, DISPOSABLE, (EASY TOUCH) 31 gauge x 5/16 Use with insulin 5 times daily as directed. vitamin B complex (B COMPLEX ORAL) Take 1 tablet by mouth once daily. multivitamin tablet Take 1 tablet by mouth once daily. No current facility-administered medications for this visit. ALLERGIES: Atorvastatin, Metoprolol, and Seasonal Allergies PERSONAL HISTORY: Social History Tobacco Use Smoking status: Never Smokeless tobacco: Never Vaping Use Vaping Use: Never used Substance Use Topics Alcohol use: Not Currently Drug use: No FAMILY HISTORY: FAMILY HISTORY Problem Relation Age of Onset No Known Problems Mother Genitourinary () Father kidney stones Prostate Cancer Father 82 Hypertension Sister Genitourinary () Sister kidney stones None Brother Colon Cancer Maternal Grandmother REVIEW OF SYMPTOMS: The review of systems data was entered by the nurse and reviewed by sc Nursing Notes: Rosanna Byrne LPN 05/06/2023 4:05 PM Signed REVIEW OF SYSTEMS: General: The patient denies fatigue, denies weight loss, denies weight gain, denies feeling hot, and denies feelings of cold. Eyes: The patient denies glaucoma, denies eye injury/surgery, wears glasses or contacts. Ear/Nose/Throat: The patient notes allergies, denies hayfever, notes ear infections, and denies bloody noses. Cardiovascular: The patient denies chest pain, notes heart disease, notes high blood pressure,denies cardiac stent, denies prior heart attack, denies irregular heart beat, denies high cholesterol, denies poor circulation, denies heart failure, other cardiac issues, denies claudication, denies cold feet, denies peripheral arterial stent. Respiratory: The patient denies tuberculosis, denies pneumonia, denies frequent cough, denies pulmonary embolism, denies shortness of breath, and denies coughing up blood. Gastrointestinal: The patient denies difficulty swallowing, denies acid (more content not included)... [facility] 05-06-2023 History of Presen t illness Narrative HISTORY AND PHYSICAL Quique Escamilla 1960 REFERRING PHYSICIAN: Santana Carlin MD CHIEF COMPLAINT: Consult (colonoscopy) HPI: The patient is a 63 year old male referred for endoscopy. Quique notes no colon complaints. Patient denies any change in bowel habits, weight changes, blood in stools, black tarry stools or abdominal pain. Denies family history of colon issues. The patient notes no upper GI complaints. Quique has undergone prior endoscopy. Last colonoscopy 12/03/[address] Wolf with removal of adenomatous polyps. Bowel prep was noted to be unsatisfactory at that time. PAST MEDICAL HISTORY Diagnosis Date Abnormal EKG [address] changes, stress test neg. Anxiety Bladder stone 02/13/2016 BPH (benign prostatic hypertrophy) with urinary obstruction 02/13/2016 Complex renal cyst 02/13/2016 Coronary artery disease involving [place] coronary artery of [place] heart with angina pectoris (HCC) 08/12/2019 Fracture of phalanx of left foot, closed 03/15/2017 Hydrocele Hyperlipidemia Hypertension Internal hemorrhoids without mention of complication Kidney stone 02/13/2016 Nontraumatic pain of right shoulder 03/29/2020 Right hydrocele 12/11/2021 S/P CABG x 3 09/24/2019 Spondylolisthesis, grade 1 2008 L5S1 radiculopathy on nerve testing Type II or unspecified type diabetes mellitus without mention of complication, uncontrolled 12/21/2010 Winged scapula, right 01/12/2020 PAST SURGICAL HISTORY Procedure Laterality Date CABG (3) VEIN GRAFTS & ARTERIAL GRAFT(S) 09/23/2019 COLONOSCOPY 12/03/2021 repeat in 1 year, due to poor colon prep. COLONOSCOPY FLX DX W/COLLJ SPEC WHEN PFRMD 09/02/2011 REMOVAL OF HYDROCELE Right 12/11/2021 Current Outpatient Medications Medication Sig metFORMIN (GLUCOPHAGE) 1,000 mg tablet Take 1 tablet by mouth twice daily with meals. montelukast (SINGULAIR) 10 mg tablet Take 1 tablet by mouth daily at bedtime. SITagliptin phosphate (JANUVIA) 100 mg tablet Take 1 tablet by mouth once daily. fenofibrate nanocrystallized (TRICOR) 145 mg tablet Take 1 tablet by mouth once daily. insulin lispro (HUMALOG KWIKPEN) 100 unit/mL 16 units with breakfast. 16 units with lunch. 20 units with supper. insulin NPH subcutaneous pen 25 units with breakfast. 30 units with dinner. pravastatin (PRAVACHOL) 10 mg tablet Take 1 tablet by mouth once daily. aspirin, enteric coated (ASPIRIN, ENTERIC COATED) 81 mg EC tablet Take 2 tablets by mouth once daily. loratadine (CLARITIN) 10 mg tablet Take 1 tablet by mouth once daily as needed for cold/allergy symptoms. carvedilol (COREG) 6.25 mg tablet Take 1 tablet by mouth twice daily. traZODone (DESYREL) 50 mg tablet Take 2 tablets by mouth daily at bedtime. lisinopril (ZESTRIL, PRINIVIL) 40 mg tablet Take 1 tablet by mouth once daily. insulin needles, DISPOSABLE, (EASY TOUCH) 31 gauge x 5/16 Use with insulin 5 times daily as directed. vitamin B complex (B COMPLEX ORAL) Take 1 tablet by mouth once daily. multivitamin tablet Take 1 tablet by mouth once daily. No current facility-administered medications for this visit. ALLERGIES: Atorvastatin, Metoprolol, and Seasonal Allergies PERSONAL HISTORY: Social History Tobacco Use Smoking status: Never Smokeless tobacco: Never Vaping Use Vaping Use: Never used Substance Use Topics Alcohol use: Not Currently Drug use: No FAMILY HISTORY: FAMILY HISTORY Problem Relation Age of Onset No Known Problems Mother Genitourinary () Father kidney stones Prostate Cancer Father 82 Hypertension Sister Genitourinary () Sister kidney stones None Brother Colon Cancer Maternal Grandmother REVIEW OF SYMPTOMS: The review of systems data was entered by the nurse and reviewed by sc Nursing Notes: Rosanna Byrne LPN 05/06/2023 4:05 PM Signed REVIEW OF SYSTEMS: General: The patient denies fatigue, denies weight loss, denies weight gain, denies feeling hot, and denies feelings of cold. Eyes: The patient denies glaucoma, denies eye injury/surgery, wears glasses or contacts. Ear/Nose/Throat: The patient notes allergies, denies hayfever, notes ear infections, and denies bloody noses. Cardiovascular: The patient denies chest pain, notes heart disease, notes high blood pressure,denies cardiac stent, denies prior heart attack, denies irregular heart beat, denies high cholesterol, denies poor circulation, denies heart failure, other cardiac issues, denies claudication, denies cold feet, denies peripheral arterial stent. Respiratory: The patient denies tuberculosis, denies pneumonia, denies frequent cough, denies pulmonary embolism, denies shortness of breath, and denies coughing up blood. Gastrointestinal: The patient denies difficulty swallowing, denies acid reflux, denies ulcers, denies vomiting, denies jaundice/hepatitis, denies gallbladder problems, denies black or tarry stools, denies hemorrhoids, denies bleeding from rectum, denies diverticulitis, denies constipation, denies diarrhea, denies loss of stool control, and denies hernias. Kidney/Bladder: The patient denies kidney stones, denies urine infections, and denies bloody urine. Skin: The patient denies a history of skin cancer, denies bleeding/changing moles, and denies a history of skin rash. Neurologic: The patient denies a history of epilepsy/convulsions, denies headaches, denies head/spinal injuries, and denies stroke/TIA. Psychiatric: The patient denies psychiatric medications, denies depression, and denies voices, denies substance abuse. Endocrine: The patient denies thyroid disorders, notes diabetes, and denies hormonal problems. Hematologic: The patient denies a history of bruising, denies bleeding, and denies anemia, denies blood clots. Infections: The patient notes a history of measles and mumps, denies rheumatic fever, and denies sexually transmitted diseases. Musculoskeletal: The patient denies back pain/injury, denies back problems, denies sciatica, denies knee/foot trouble, denies arthritis, or denies gout. When was patient's last Mammogram screening? N/A Last Colonoscopy: 2021 Rosanna Byrne LPN PHYSICAL EXAMINATION: General: The patient is 63 year old male, well nourished, well hydrated in no acute distress. The patient is oriented to time, place, and person. VITALS: Blood pressure 132/70, pulse 78, temperature 36.6 C (97.8 F), height 177.8 cm (5' 10 ), weight 106.5 kg (234 lb 12.8 oz), SpO2 99 %. Body mass index is 33.69 kg/m . HEENT: Normal cephalic, ataumatic, pupils are equally round, sclera are anicteric, mucous membranes are moist, oropharynx is clear. Neck has no masses, asymmetry or lymphadenopathy. Respiratory: Clear to auscultation and percussion. Normal respiratory excursion and pattern. Cardiac: Examination is regular rate and rhythm. Normal S1/S2 Abdominal exam: Soft, nontender, with no palpable masses. No hepatosplenomegaly. No palpable hernias. Extremities: no clubbing, cyanosis or edema. No adenopathy. LABORATORY VALUES: As Noted RADIOLOGIC STUDIES: As Noted Assessment IMPRESSION: history of colon polyps, due for repeat colonoscopy due to prior unsatisfactory bowel prep PLAN: I have reviewed my findings with the surgeon. Will plan for lower endoscopy. We discussed the risks and benefits of the planned endoscopy. I have informed the patient that complications can occur including failure to complete the endoscopy and perforation. The patient had the opportunity to ask questions concerning the planned endoscopy. My staff has also explained the procedure to the patient in understandable terms and has given the patient printed material concerning the procedure. The patient freely consents to surgery. I plan to use miralax bowel preparation Patient instructed to contact PCP for instructions regarding diabetic medication, which may require adjustment during bowel preparation and/or day of procedure Diagnoses: (Z12.11) Encounter for screening for malignant neoplasm of colon (primary encounter diagnosis) (Z86.010) History of colonic polyps Consultation requested by Dr. Carlin for an opinion regarding colonoscopy. My final recommendations will be communicated back to the requesting physician by way of shared Medical record or letter to requesting physician via US mail. Renay Ware PA-C documented in this encounter [facility] 05-06-2023 Nurse Note REVIEW OF SYSTEMS: General: The patient denies fatigue, denies weight loss, denies weight gain, denies feeling hot, and denies feelings of cold. Eyes: The patient denies glaucoma, denies eye injury/surgery, wears glasses or contacts. Ear/Nose/Throat: The patient notes allergies, denies hayfever, notes ear infections, and denies bloody noses. Cardiovascular: The patient denies chest pain, notes heart disease, notes high blood pressure,denies cardiac stent, denies prior heart attack, denies irregular heart beat, denies high cholesterol, denies poor circulation, denies heart failure, other cardiac issues, denies claudication, denies cold feet, denies peripheral arterial stent. Respiratory: The patient denies tuberculosis, denies pneumonia, denies frequent cough, denies pulmonary embolism, denies shortness of breath, and denies coughing up blood. Gastrointestinal: The patient denies difficulty swallowing, denies acid reflux, denies ulcers, denies vomiting, denies jaundice/hepatitis, denies gallbladder problems, denies black or tarry stools, denies hemorrhoids, denies bleeding from rectum, denies diverticulitis, denies constipation, denies diarrhea, denies loss of stool control, and denies hernias. Kidney/Bladder: The patient denies kidney stones, denies urine infections, and denies bloody urine. Skin: The patient denies a history of skin cancer, denies bleeding/changing moles, and denies a history of skin rash. Neurologic: The patient denies a history of epilepsy/convulsions, denies headaches, denies head/spinal injuries, and denies stroke/TIA. Psychiatric: The patient denies psychiatric medications, denies depression, and denies voices, denies substance abuse. Endocrine: The patient denies thyroid disorders, notes diabetes, and denies hormonal problems. Hematologic: The patient denies a history of bruising, denies bleeding, and denies anemia, denies blood clots. Infections: The patient notes a history of measles and mumps, denies rheumatic fever, and denies sexually transmitted diseases. Musculoskeletal: The patient denies back pain/injury, denies back problems, denies sciatica, denies knee/foot trouble, denies arthritis, or denies gout. When was patient's last Mammogram screening? N/A Last Colonoscopy: 2021 Rosanna Byrne LPN documented in this encounter [facility] 04-26-2023 Miscellaneous Notes Images from the original note were not included. Pt notified with results below. Santana Carlin MD P Wstr Im Brad Pool Negative for DVT. Use compression stockings. documented in this encounter [facility] 04-25-2023 Note HNO ID: [id number] Author: Nasrin Clay RDMS Service: ? Author Type: Air Intercept Controller Supervisor Type: Progress Notes Filed: 04/25/2023 3:03 PM Note Text: Radiology Service Progress Note PATIENT NAME: Quique Escamilla DATE OF SERVICE: April 25, 2023 TIME: 3:03 PM PATIENT IDENTITY VERIFICATION COMPLETED USING TWO (2) IDENTIFIERS: Name and Date of confirmed by patient verbally. FALL SCREENING: Has the patient had 2 falls in the last year or 1 fall with injury or currently using an Ambulatory Assistive Device (Walker, Cane, Wheelchair, Crutches, etc.)? No PATIENT GENDER DATA: Male PATIENT RELEVANT IMPLANT DATA REVIEWED: Not Applicable RADIOLOGY DEPARTMENT: Ultrasound PERIPHERAL IV DATA: Not applicable SIGNED BY: Nasrin Clay RDMS RVT April 25, 2023 3:03 PM [facility] 04-24-2023 Note HNO ID: [id number] Author: Shannon Torrez Service: ? Author Type: ? Type: Progress Notes Filed: 04/24/2023 11:42 AM Note Text: 3rd attempt to call patient, left voicemail. 04/24/23. Shannon Torrez April 24, 2023 11:42 AM [facility] 04-18-2023 Note HNO ID: [id number] Author: Santana Carlin MD Service: ? Author Type: Physician Type: Progress Notes Filed: 04/18/2023 10:43 PM Note Text: This note was created using NoteWriter. Subjective Quique Escamilla is a 63 year old male. He missed his last appointment, and labs were overdue. He felt well in general, other than left calf induration. He was seen here for left leg injury consistent with gastrocnemius tear 2 months ago. He recovered, but had persistent swelling and hardness of the left calf. This did not impact on his work or activities of daily living. His diabetes mellitus was reportedly controlled. Hypertension was not at goal today on repeated measurements. Anxiety was stable, and he decided not to continue duloxetine. Review of Systems Constitutional: Negative for fatigue and fever. Respiratory: Negative for chest tightness and shortness of breath. Cardiovascular: Positive for leg swelling. Negative for chest pain and palpitations. Gastrointestinal: Negative for abdominal pain and diarrhea. Musculoskeletal: Negative for arthralgias and myalgias. Neurological: Negative for dizziness and headaches. 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 lisinopril (ZESTRIL, PRINIVIL) 40 mg tablet Take 1 tablet by mouth once daily. metFORMIN (GLUCOPHAGE) 1,000 mg tablet Take 1 tablet by mouth twice daily with meals. montelukast (SINGULAIR) 10 mg tablet Take 1 tablet by mouth daily at bedtime. SITagliptin (JANUVIA) 100 mg tablet Take 1 tablet by mouth once daily. fenofibrate nanocrystallized (TRICOR) 145 mg tablet Take 1 tablet by mouth once daily. insulin lispro (HUMALOG KWIKPEN) 100 unit/mL 16 units with breakfast. 16 units with lunch. 20 units with supper. insulin NPH (HumuLIN N,NovoLIN N) pen 25 units with breakfast. 30 units with dinner. insulin needles, DISPOSABLE, (EASY TOUCH) 31 gauge x 5/16 Use with insulin 5 times daily as directed. aspirin, enteric coated (ASPIRIN, ENTERIC COATED) 81 mg EC tablet Take 2 tablets by mouth once daily. pravastatin (PRAVACHOL) 10 mg tablet Take 1 tablet by mouth once daily. carvedilol (COREG) 3.125 mg tablet Take 1 tablet by mouth twice daily. loratadine (CLARITIN) 10 mg tablet Take 10 mg by mouth once daily as needed for Cold/Allergy Symptoms. vitamin B complex (B COMPLEX ORAL) Take 1 tablet by mouth once daily. multivitamin tablet Take 1 tablet by mouth once daily. naproxen (NAPROSYN) 500 mg tablet Take 1 tablet by mouth twice daily as needed (for pain/inflammation). Take with food. (Patient not taking: Reported on 04/18/2023) DULoxetine (CYMBALTA) 20 mg capsule Take 1 capsule by mouth once daily. No current facility-administered medications for this visit. Objective BP 149/83 Pulse 76 Resp 16 Wt 106.1 kg (234 lb) SpO2 96% BMI 33.58 kg/m? Physical Exam Constitutional: Appearance: He is not ill-appearing. Cardiovascular: Rate and Rhythm: Normal rate and regular rhythm. Heart sounds: No murmur heard. No gallop. Pulmonary: Effort: Pulmonary effort is normal. Breath sounds: Normal breath sounds. Musculoskeletal: Right knee: Normal. Left knee: Normal. Right lower leg: No edema. Left lower leg: No tenderness. 2+ Edema present. Right ankle: Normal. Left ankle: Normal. Skin: Findings: No erythema. Neurological: General: No focal deficit present. Mental Status: He is alert. Motor: No weakness. Gait: Gait normal. Feet:Shoes and socks removed, No deformities, ulcers, calluses, normal distal pulses, and sensitive to 10 gm monofilament Assessment and Plan 1. Leg edema, left - ICD9: 782.3, ICD10: R60.0 (primary diagnosis) - US DVT LOWER LEFT 2. 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 Chronic hypertrophic rhinitis - ICD9: 472.0, ICD10: J31.0 - MONTELUKAST 10 MG TABLET 4. Hyperlipidemia, unspecified hyperlipidemia type - ICD9: 272.4, ICD10: E78.5 - Control undetermined, due for labs - Continue current medications - Counseled on healthy diet and regular exercise - Discussed need for and benefit of (more content not included)... [facility] 04-02-2023 Note HNO ID: [id number] Author: Warren Cruz Service: ? Author Type: ? Type: Progress Notes Filed: 04/02/2023 12:31 PM Note Text: 2nd failed attempt to rs colonoscopy. Left VM. JN 04/02 [facility] 03-04-2023 Note HNO ID: [id number] Author: Abby Aguilar Service: ? Author Type: ? Type: Progress Notes Filed: 03/04/2023 1:52 PM Note Text: 03-04...contacted patient to reschedule. He will call when ready and has our direct phone number. IS [facility] 02-20-2023 Note HNO ID: [id number] Author: RT Warner(R) Service: ? Author Type: Wall Worker Type: Progress Notes Filed: 02/20/2023 12:23 PM Note Text: Radiology Service Progress Note PATIENT NAME: Quique Escamilla DATE OF SERVICE: February 20, 2023 TIME: 12:23 PM PATIENT IDENTITY VERIFICATION COMPLETED USING TWO (2) IDENTIFIERS: Name and Date of confirmed by patient verbally. FALL SCREENING: Has the patient had 2 falls in the last year or 1 fall with injury or currently using an Ambulatory Assistive Device (Walker, Cane, Wheelchair, Crutches, etc.)? No PATIENT GENDER DATA: Male PATIENT RELEVANT IMPLANT DATA REVIEWED: Yes RADIOLOGY DEPARTMENT: General X-ray: Exam(s) Completed: Pelvis X-Ray: Pelvis with Hip Left Lower Extremity X-Ray(s): Femur, Left and Knee, AP / Lat / Tunne / Merchant Left PERIPHERAL IV DATA: Not applicable SIGNED BY: RT Warner(R) February 20, 2023 12:23 PM [facility] 02-20-2023 Note HNO ID: [id number] Author: Tonya Saunders APRN.PEPPER Service: ? Author Type: Nurse Practitioner Type: Progress Notes Filed: 02/20/2023 4:05 PM Note Text: CC: Patient presents with: Back Pain: Back pain from hip down to knee, trouble walking, bruising x 4 days HPI Quique Escamilla is a 63 year old male who presents today for left leg pain. On Friday was cutting down a tree with a chainsaw, tree came down toward him so he jumped out of the way. Tree did not hit him, denies hitting his head, and unsure if he hit any branches on the ground. Had instant pain to back of left leg and took quite a few minutes to get the strength to get up and then walking was very painful. Has injured this leg before by pulling a hamstring years ago. Today feels like pain may be a little worse but started back to work yesterday. Sitting or other positions that put pressure to his posterior left thigh increasing the ache pain. Getting up and walking has sharp pain that can cause him to tear up. Denies history of any osteoporosis, fractures, or DVT. Had a very large bruise to posterior LLE from upper thigh to below knee noticed the next day and feels it may be larger. Denies any edema, weakness, numbness decreased ROM, fever, chills, shortness of breath or chest pain. REVIEW OF SYSTEMS General: no fevers, no chills, no night sweats, no recurrent infections, no change in appetite, no change in energy, and no significant changes in weight Respiratory: no cough, no wheezing, no shortness of breath, no hemoptysis Cardiovascular: no chest pain, no chest pressure, no palpitations, and no swelling Neurologic: No headache, weakness, numbness, tingling, dizziness, memory loss, syncope. PAST MEDICAL HISTORY Diagnosis Date Abnormal EKG [address] changes, stress test neg. Anxiety Bladder stone 02/13/2016 BPH (benign prostatic hypertrophy) with urinary obstruction 02/13/2016 Complex renal cyst 02/13/2016 Coronary artery disease involving [place] coronary artery of [place] heart with angina pectoris (HCC) 08/12/2019 Fracture of phalanx of left foot, closed 03/15/2017 Hydrocele Hyperlipidemia Hypertension Internal hemorrhoids without mention of complication Kidney stone 02/13/2016 Nontraumatic pain of right shoulder 03/29/2020 Right hydrocele 12/11/2021 S/P CABG x 3 09/24/2019 Spondylolisthesis, grade 1 2008 L5S1 radiculopathy on nerve testing Type II or unspecified type diabetes mellitus without mention of complication, uncontrolled 12/21/2010 Winged scapula, right 01/12/2020 PAST SURGICAL HISTORY Procedure Laterality Date CABG (3) VEIN GRAFTS AND ARTERIAL GRAFT(S) 09/23/2019 COLONOSCOPY 12/03/2021 repeat in 1 year, due to poor colon prep. COLONOSCOPY FLX DX W/DBJ SPEC WHEN PFRMD 09/02/2011 REMOVAL OF HYDROCELE Right 12/11/2021 ALLERGIES Atorvastatin, Metoprolol, and Seasonal Allergies MEDICATIONS traZODone (DESYREL) 50 mg tablet Take 2 tablets by mouth daily at bedtime. lisinopril (ZESTRIL, PRINIVIL) 40 mg tablet Take 1 tablet by mouth once daily. DULoxetine (CYMBALTA) 20 mg capsule Take 1 capsule by mouth once daily. (Patient not taking: Reported on 12/12/2022) metFORMIN (GLUCOPHAGE) 1,000 mg tablet Take 1 tablet by mouth twice daily with meals. montelukast (SINGULAIR) 10 mg tablet Take 1 tablet by mouth daily at bedtime. SITagliptin (JANUVIA) 100 mg tablet Take 1 tablet by mouth once daily. fenofibrate nanocrystallized (TRICOR) 145 mg tablet Take 1 tablet by mouth once daily. insulin lispro (HUMALOG KWIKPEN) 100 unit/mL 16 units with breakfast. 16 units with lunch. 20 units with supper. insulin NPH (HumuLIN N,NovoLIN N) pen 25 units with breakfast. 30 units with dinner. insulin needles, DISPOSABLE, (EASY TOUCH) 31 gauge x 5/16 Use with insulin 5 times daily as directed. aspirin, enteric coated (ASPIRIN, ENTERIC COATED) 81 mg EC tablet Take 2 tablets by mouth once daily. pravastatin (PRAVACHOL) 10 mg tablet Take 1 tablet by mouth once daily. carvedilol (COREG) 3.125 mg tablet Take 1 tablet by mouth twice daily. loratadine (CLARITIN) 10 mg tablet Take 10 mg by mouth once daily as needed for Cold/Allergy Symptoms. vitamin B complex (B COMPLEX ORAL) Take 1 tablet by mouth once daily. multivitamin tablet Take 1 tablet by mouth once daily. FAMILY HISTORY Problem Relation Age of Onset No Known Problems Mother Genitourinary () Father kidney stones Prostate Cancer Father 82 Hypertension Sister Genitourinary () Sister kidney stones None Brother Colon Cancer Maternal Grandmother Social History Tobacco Use Smoking status: Never Smokeless tobacco: Never Vaping Use Vaping Use: Never used Substance Use Topics Alcohol use: Not Currently Drug use: No PHYSICAL EXAM BP 142/70 Pulse 88 Temp 36.1 ?C (97 ?F) (Temporal) Resp 16 Wt 106.6 kg (235 lb) SpO2 99% BMI 33.72 kg/m? General Appearance: well appearing, in no (more content not included)... [facility] 02-20-2023 History of Presen t illness Narrative CC: Patient presents with: Back Pain: Back pain from hip down to knee, trouble walking, bruising x 4 days HPI Quique Escamilla is a 63 year old male who presents today for left leg pain. On Friday was cutting down a tree with a chainsaw, tree came down toward him so he jumped out of the way. Tree did not hit him, denies hitting his head, and unsure if he hit any branches on the ground. Had instant pain to back of left leg and took quite a few minutes to get the strength to get up and then walking was very painful. Has injured this leg before by pulling a hamstring years ago. Today feels like pain may be a little worse but started back to work yesterday. Sitting or other positions that put pressure to his posterior left thigh increasing the ache pain. Getting up and walking has sharp pain that can cause him to tear up. Denies history of any osteoporosis, fractures, or DVT. Had a very large bruise to posterior LLE from upper thigh to below knee noticed the next day and feels it may be larger. Denies any edema, weakness, numbness decreased ROM, fever, chills, shortness of breath or chest pain. REVIEW OF SYSTEMS General: no fevers, no chills, no night sweats, no recurrent infections, no change in appetite, no change in energy, and no significant changes in weight Respiratory: no cough, no wheezing, no shortness of breath, no hemoptysis Cardiovascular: no chest pain, no chest pressure, no palpitations, and no swelling Neurologic: No headache, weakness, numbness, tingling, dizziness, memory loss, syncope. PAST MEDICAL HISTORY Diagnosis Date Abnormal EKG [address] changes, stress test neg. Anxiety Bladder stone 02/13/2016 BPH (benign prostatic hypertrophy) with urinary obstruction 02/13/2016 Complex renal cyst 02/13/2016 Coronary artery disease involving [place] coronary artery of [place] heart with angina pectoris (HCC) 08/12/2019 Fracture of phalanx of left foot, closed 03/15/2017 Hydrocele Hyperlipidemia Hypertension Internal hemorrhoids without mention of complication Kidney stone 02/13/2016 Nontraumatic pain of right shoulder 03/29/2020 Right hydrocele 12/11/2021 S/P CABG x 3 09/24/2019 Spondylolisthesis, grade 1 2007 L5S1 radiculopathy on nerve testing Type II or unspecified type diabetes mellitus without mention of complication, uncontrolled 12/21/2010 Winged scapula, right 01/12/2020 PAST SURGICAL HISTORY Procedure Laterality Date CABG (3) VEIN GRAFTS & ARTERIAL GRAFT(S) 09/23/2019 COLONOSCOPY 12/03/2021 repeat in 1 year, due to poor colon prep. COLONOSCOPY FLX DX W/COLLJ SPEC WHEN PFRMD 09/02/2011 REMOVAL OF HYDROCELE Right 12/11/2021 ALLERGIES Atorvastatin, Metoprolol, and Seasonal Allergies MEDICATIONS traZODone (DESYREL) 50 mg tablet Take 2 tablets by mouth daily at bedtime. lisinopril (ZESTRIL, PRINIVIL) 40 mg tablet Take 1 tablet by mouth once daily. DULoxetine (CYMBALTA) 20 mg capsule Take 1 capsule by mouth once daily. (Patient not taking: Reported on 12/12/2022) metFORMIN (GLUCOPHAGE) 1,000 mg tablet Take 1 tablet by mouth twice daily with meals. montelukast (SINGULAIR) 10 mg tablet Take 1 tablet by mouth daily at bedtime. SITagliptin (JANUVIA) 100 mg tablet Take 1 tablet by mouth once daily. fenofibrate nanocrystallized (TRICOR) 145 mg tablet Take 1 tablet by mouth once daily. insulin lispro (HUMALOG KWIKPEN) 100 unit/mL 16 units with breakfast. 16 units with lunch. 20 units with supper. insulin NPH (HumuLIN N,NovoLIN N) pen 25 units with breakfast. 30 units with dinner. insulin needles, DISPOSABLE, (EASY TOUCH) 31 gauge x 5/16 Use with insulin 5 times daily as directed. aspirin, enteric coated (ASPIRIN, ENTERIC COATED) 81 mg EC tablet Take 2 tablets by mouth once daily. pravastatin (PRAVACHOL) 10 mg tablet Take 1 tablet by mouth once daily. carvedilol (COREG) 3.125 mg tablet Take 1 tablet by mouth twice daily. loratadine (CLARITIN) 10 mg tablet Take 10 mg by mouth once daily as needed for Cold/Allergy Symptoms. vitamin B complex (B COMPLEX ORAL) Take 1 tablet by mouth once daily. multivitamin tablet Take 1 tablet by mouth once daily. FAMILY HISTORY Problem Relation Age of Onset No Known Problems Mother Genitourinary () Father kidney stones Prostate Cancer Father 82 Hypertension Sister Genitourinary () Sister kidney stones None Brother Colon Cancer Maternal Grandmother Social History Tobacco Use Smoking status: Never Smokeless tobacco: Never Vaping Use Vaping Use: Never used Substance Use Topics Alcohol use: Not Currently Drug use: No PHYSICAL EXAM BP 142/70 Pulse 88 Temp 36.1 C (97 F) (Temporal) Resp 16 Wt 106.6 kg (235 lb) SpO2 99% BMI 33.72 kg/m General Appearance: well appearing, in no acute distress, alert Lungs: Lungs clear to auscultation. No wheezing, rhonchi, rales. Heart: RRR without murmur, gallop, or rubs. No ectopy Left Extremities: Positive for large ecchymosis posteriorly starting at upper thigh and extending below left knee. Tight not pitting edema noted to entire LLE. Has some pain to left hips with flexion and external rotation. Tenderness noted to entire posterior thigh and posterior knee. Pulses all palpable. Left knee-. Flexion:Limitation: No, Pain:Yes; Extension:Limitation:No, Pain:Yes. Laxity: No Health maintenance reviewed with patient: BP CONTROLLED (<130/80) Never done URINE ALBUMIN:CREATININE RATIO due on 10/06/2022 LDL CHOLESTEROL due on 10/06/2022 HBA1C due on 10/14/2022 COLORECTAL CANCER SCREENING due on 12/03/2022 DILATED RETINAL EXAM due on 06/03/2023 DIABETIC FOOT EXAM due on 10/21/2023 ANNUAL PCP TEAM CHRONIC DISEASE VISIT due on 10/21/2023 PROSTATE CANCER SCREENING DISCUSSION due on 10/06/2026 DTAP,TDAP,TD(3 - Td or Tdap) due on 03/15/2027 INFLUENZA Completed DEPRESSION ASSESSMENT Completed HEPATITIS C SCREENING Completed HIV SCREENING Completed SHINGRIX VACCINE Completed COVID-19 VACCINE Completed PNEUMOCOCCAL Completed DATA REVIEWED: Most recent labs ASSESSMENT/PLAN: 1. Fall, initial encounter - ICD9: E888.9, ICD10: W19.XXXA (primary diagnosis) Will do xrays to evaluate for any fracture -naproxen as ordered and ice as discussed - rest and no more work until next Friday - if xrays normal and no improvement may needs MRI and/or to see orthopedics - XR HIP GENERAL 3V PELV/AP/LAT LEFT - XR FEMUR GENERAL 2V AP/LAT LEFT - XR KNEE GENERAL 4V AP BOTH/PA BOTH/LAT/MERC LEFT - follow up depending on results. 2. Pain of left lower extremity - ICD9: 729.5, ICD10: M79.605 As above - XR HIP GENERAL 3V PELV/AP/LAT LEFT - XR FEMUR GENERAL 2V AP/LAT LEFT - XR KNEE GENERAL 4V AP BOTH/PA BOTH/LAT/MERC LEFT 3. Lower extremity edema - ICD9: 782.3, ICD10: R60.0 See #1 - XR HIP GENERAL 3V PELV/AP/LAT LEFT - XR FEMUR GENERAL 2V AP/LAT LEFT - XR KNEE GENERAL 4V AP BOTH/PA BOTH/LAT/MERC LEFT 4. Ecchymosis - ICD9: 459.89, ICD10: R58 See #1 - XR HIP GENERAL 3V PELV/AP/LAT LEFT - XR FEMUR GENERAL 2V AP/LAT LEFT - XR KNEE GENERAL 4V AP BOTH/PA BOTH/LAT/MERC LEFT rescription instructions reviewed with patient as applicable. Potential red flag symptoms discussed with the patient. Reviewed appropriate action plan to take if red flag symptoms occur. Patient agreeable to treatment plan. Tonya Saunders APRN.CNP documented in this encounter [facility] 02-20-2023 Miscellaneous Notes Reason for Call: Left buttock to knee bruising with severe pain Outcome: Advised to be seen within 4 hours. Caller conferenced to Sujey in appointment center for available appointment in office of PCP. Caller also given alternate options for care including [facility], emergency department for worsening symptoms. Arabella Fink RN Reason for Disposition [1] SEVERE pain AND [2] not improved 2 hours after pain medicine/ice packs Answer Assessment - Initial Assessment Questions 1. APPEARANCE of BRUISE: Vivid deep purple 2. SIZE: Starts at left buttocks, goes does to crease in back of the knee, a little past that, wraps around to inner thigh/groin area 3. NUMBER: Multiple 4. LOCATION: Some places up towards buttocks appear to be one main bruise, behind knee there are individual bruises 5. ONSET: 12 hours after incident on Friday afternoon 6. CAUSE: Patient was cutting down a tree Friday. Tree fell backwards the wrong way and started coming towards patient. Patient pushed off with left leg very hard and quickly in order to avoid being hit by tree. Patient felt something not right in leg and had to crawl and was unable to stand for a few minutes after the incident. 7. MEDICAL HISTORY: Coronary bipass back in 2019 8. MEDICATIONS: Takes an Asprin a day and tylenol for the pain Pain? Yes left leg and down If pain, scale of 1-10 and/or behavior (grimace, crying, etc.) 8/10 pain walking is really slow now, cannot bend leg to put socks or shoe on Location of pain? Entire leg buttocks down Description of pain? Steady pain but throbbing, cannot sit down flat Duration of pain? Constant Pain relief methods/effectiveness? Tylenol extra strength 2 tablets every 8 hours, not helping with pain relief 9. OTHER SYMPTOMS: None Protocols used: [id number] documented in this encounter [facility] 12-12-2022 Note HNO ID: [id number] Author: Hortencia Summers Ma Service: ? Author Type: ? Type: Progress Notes Filed: 01/19/2023 9:29 PM Note Text: PT ASSESSMENT - CASTING ROOM Quique presents for Application of brace. Applied Actimove CMC thumb braces size Large to Bilateral hand. Patient tolerated well. Patient has been instructed in Care and proper application of brace. Patient verbalized understanding. Hortencia Summers Ma [facility] 12-12-2022 Note HNO ID: [id number] Author: Bill Nunes MD Service: ? Author Type: Physician Type: Progress Notes Filed: 01/19/2023 9:29 PM Note Text: Bill Nunes MD Department of Orthopaedics [facility] [address] [place] [address] Dept: [phone] Dept December 12, 2022 CHIEF COMPLAINT: Established Patient and Pain of the Left Hand and Established Patient and Pain of the Right Hand HPI Patient here today for bilateral thumb pain x 1 year. He notices decreased panel beater strength. Right hand dominant. 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 ASSESSMENT: M18.0 Primary osteoarthritis of both first carpometacarpal joints (primary encounter diagnosis) PLAN: Michelle treatment options for his CMC joints. Topical anti-inflammatories, oral, bracing, possible injections and ultimately joint reconstruction. Mr. Quique Escamilla was advised as to contrast therapies and/or to take analgesics/anti-inflammatories as needed and all contraindications were reviewed. OBJECTIVE: Mr. Quique Escamilla is a pleasant 62 year old in no apparent distress. Gen:There were no vitals taken for this visit. nl development, non obese, no deformities ENT: Normocephalic, normal hearing, moist mucosa CV: Pulses:Radial= 2+ and symmetric, capillary refill < 2 secs, no peripheral edema/varicosities Skin: no rash, bruising or lesions. Good turgor. Psych: cooperative and appropriate, alert and oriented x 3, good mood and affect. Musculoskeletal: Mild swelling over both basal joints of the thumbs. Tender over the dorsal capsule. Some pain and mild crepitance on grind testing. No locking catching or clicking of the thumbs or tenderness at the A1 deonna sites. Median, radial and ulnar nerves appear to be intact. Imaging: IMPRESSION: MODERATELY ADVANCED DEGENERATIVE CHANGES OF THE FIRST CMC JOINT BILATERALLY, WORSE ON THE RIGHT Warehouse Traffic Supervisor: DOMINGUEZ Transcribe Date/Time: Dec 17 2022 8:01P Dictated by : KARELY HOWARD MD This examination was interpreted and the report reviewed and electronically signed by: KARELY HOWARD MD on Dec 17 2022 8:07PM EST Results-Findings * * *Final Report* * * DATE OF EXAM: Dec 12 2022 3:08PM [id number] - XR HAND 3V PA/LAT/OBL PABLO / PROCEDURE REASON: multiple diagnoses * * * * Physician Interpretation * * * * HISTORY: 62-YEAR-OLD MALE WITH Bilateral thumb pain Bilateral thumb pain . PT STATES BILAT HAND PAIN AND WEAKNESS. TECHNIQUE: XR HAND 3V PA/LAT/OBL PABLO Laterality: BILATERAL Number of different views (projections): 3 COMPARISON: None RESULT: Bilateral hand: Degenerative changes of first CMC joint bilaterally, more advanced on the right. Prominent trapezial tubercle on the left. Deformity of the first metacarpal bilaterally may be normal variant however remote trauma cannot be excluded.. Degenerative changes at DIP joint thumb the left. Degenerative changes of the MCP joint of second third digit bilaterally. Bones and joints otherwise intact. No fracture. No erosions. Supporting Subjective Information Below: Past Surgical History: PAST SURGICAL HISTORY Procedure Laterality Date CABG (3) VEIN GRAFTS AND ARTERIAL GRAFT(S) 09/23/2019 COLONOSCOPY 12/03/2021 repeat in 1 year, due to poor colon prep. COLONOSCOPY FLX DX W/COLLJ SPEC WHEN PFRMD 09/02/2011 REMOVAL OF HYDROCELE Right 12/11/2021 Medications: Current Outpatient Medications Medication Sig lisinopril (ZESTRIL, PRINIVIL) 40 mg tablet Take 1 tablet by mouth once daily. metFORMIN (GLUCOPHAGE) 1,000 mg tablet Take 1 tablet by mouth twice daily with meals. montelukast (SINGULAIR) 10 mg tablet Take 1 tablet by mouth daily at bedtime. SITagliptin (JANUVIA) 100 mg tablet Take 1 tablet by mouth once daily. fenofibrate nanocrystallized (TRICOR) 145 mg tablet Take 1 tablet by mouth once daily. insulin lispro (HUMALOG KWIKPEN) 100 unit/mL 16 units with breakfast. 16 units with lunch. 20 units with supper. insulin NPH (HumuLIN N,NovoLIN N) pen 25 units with breakfast. 30 units with dinner. aspirin, enteric coated (ASPIRIN, ENTERIC COATED) 81 mg EC tablet Take 2 tablets by mouth once daily. pravastatin (PRAVACHOL) 10 mg tablet Take 1 tablet by mouth once daily. carvedilol (COREG) 3.125 mg tablet Take 1 tablet by mouth twice daily. traZODone (DESYREL) 50 mg tablet Take 2 tablets by mouth daily at bedtime. loratadine (CLARITIN) 10 mg tablet Take 10 mg by mouth once daily as needed for Cold/Allergy Symptoms. vitamin B complex (B COMPLEX ORAL) Take 1 tablet by mouth once daily. multivitamin tablet Take 1 tablet by mouth once daily. DULoxetine (CYMBALTA) 20 mg capsule Take 1 capsule by mouth once daily. (Patient not taking: Reported on 12/12/2022) insulin needles, DISPOSABLE, (EASY TOUCH) 31 gauge x /16 Use with insulin 5 times daily as directed. No current facility-administered medications for this visit. Allergies: Atorvastatin, M (more content not included)... [facility] 12-12-2022 Note HNO ID: [id number] Author: RT Steve(R) Service: ? Author Type: Technologist Type: Progress Notes Filed: 12/12/2022 3:10 PM Note Text: Radiology Service Progress Note PATIENT NAME: Quique Escamilla DATE OF SERVICE: December 12, 2022 TIME: 3:09 PM PATIENT IDENTITY VERIFICATION COMPLETED USING TWO (2) IDENTIFIERS: Name and Date of confirmed by patient verbally. FALL SCREENING: Has the patient had 2 falls in the last year or 1 fall with injury or currently using an Ambulatory Assistive Device (Walker, Cane, Wheelchair, Crutches, etc.)? No PATIENT GENDER DATA: Male PATIENT RELEVANT IMPLANT DATA REVIEWED: Not Applicable RADIOLOGY DEPARTMENT: General X-ray: Exam(s) Completed: Upper Extremity X-Ray(s): Hand, bilateral PERIPHERAL IV DATA: Not applicable SIGNED BY: RT Steve(R) December 12, 2022 3:09 PM [facility] 12-12-2022 History of Presen t illness Narrative PT ASSESSMENT - CASTING ROOM Quique presents for Application of brace. Applied Actimove CMC thumb braces size Large to Bilateral hand. Patient tolerated well. Patient has been instructed in Care and proper application of brace. Patient verbalized understanding. Hortencia Summers Ma Bill Nunes MD Department of Orthopaedics Orthopaedics [address] [facility] [address] Dept: [phone] Dept December 12, 2022 CHIEF COMPLAINT: Established Patient and Pain of the Left Hand and Established Patient and Pain of the Right Hand HPI Patient here today for bilateral thumb pain x 1 year. He notices decreased panel beater strength. Right hand dominant. 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 ASSESSMENT: M18.0 Primary osteoarthritis of both first carpometacarpal joints (primary encounter diagnosis) PLAN: Michelle treatment options for his CMC joints. Topical anti-inflammatories, oral, bracing, possible injections and ultimately joint reconstruction. Mr. Quique Escamilla was advised as to contrast therapies and/or to take analgesics/anti-inflammatories as needed and all contraindications were reviewed. OBJECTIVE: Mr. Quique Escamilla is a pleasant 62 year old in no apparent distress. Gen:There were no vitals taken for this visit. nl development, non obese, no deformities ENT: Normocephalic, normal hearing, moist mucosa CV: Pulses:Radial= 2+ and symmetric, capillary refill < 2 secs, no peripheral edema/varicosities Skin: no rash, bruising or lesions. Good turgor. Psych: cooperative and appropriate, alert and oriented x 3, good mood and affect. Musculoskeletal: Mild swelling over both basal joints of the thumbs. Tender over the dorsal capsule. Some pain and mild crepitance on grind testing. No locking catching or clicking of the thumbs or tenderness at the A1 deonna sites. Median, radial and ulnar nerves appear to be intact. Imaging: IMPRESSION: MODERATELY ADVANCED DEGENERATIVE CHANGES OF THE FIRST CMC JOINT BILATERALLY, WORSE ON THE RIGHT Warehouse Traffic Supervisor: DOMINGUEZ Transcribe Date/Time: Dec 17 2022 8:01P Dictated by : KARELY HOWARD MD This examination was interpreted and the report reviewed and electronically signed by: KARELY HOWARD MD on Dec 17 2022 8:07PM EST Results-Findings * * *Final Report* * * DATE OF EXAM: Dec 12 2022 3:08PM [id number] - XR HAND 3V PA/LAT/OBL PABLO / PROCEDURE REASON: multiple diagnoses * * * * Physician Interpretation * * * * HISTORY: 62-YEAR-OLD MALE WITH Bilateral thumb pain Bilateral thumb pain . PT STATES BILAT HAND PAIN AND WEAKNESS. TECHNIQUE: XR HAND 3V PA/LAT/OBL PABLO Laterality: BILATERAL Number of different views (projections): 3 COMPARISON: None RESULT: Bilateral hand: Degenerative changes of first CMC joint bilaterally, more advanced on the right. Prominent trapezial tubercle on the left. Deformity of the first metacarpal bilaterally may be normal variant however remote trauma cannot be excluded.. Degenerative changes at DIP joint thumb the left. Degenerative changes of the MCP joint of second third digit bilaterally. Bones and joints otherwise intact. No fracture. No erosions. Supporting Subjective Information Below: Past Surgical History: PAST SURGICAL HISTORY Procedure Laterality Date CABG (3) VEIN GRAFTS & ARTERIAL GRAFT(S) 09/23/2019 COLONOSCOPY 12/03/2021 repeat in 1 year, due to poor colon prep. COLONOSCOPY FLX DX W/COLLJ SPEC WHEN PFRMD 09/02/2011 REMOVAL OF HYDROCELE Right 12/11/2021 Medications: Current Outpatient Medications Medication Sig lisinopril (ZESTRIL, PRINIVIL) 40 mg tablet Take 1 tablet by mouth once daily. metFORMIN (GLUCOPHAGE) 1,000 mg tablet Take 1 tablet by mouth twice daily with meals. montelukast (SINGULAIR) 10 mg tablet Take 1 tablet by mouth daily at bedtime. SITagliptin (JANUVIA) 100 mg tablet Take 1 tablet by mouth once daily. fenofibrate nanocrystallized (TRICOR) 145 mg tablet Take 1 tablet by mouth once daily. insulin lispro (HUMALOG KWIKPEN) 100 unit/mL 16 units with breakfast. 16 units with lunch. 20 units with supper. insulin NPH (HumuLIN N,NovoLIN N) pen 25 units with breakfast. 30 units with dinner. aspirin, enteric coated (ASPIRIN, ENTERIC COATED) 81 mg EC tablet Take 2 tablets by mouth once daily. pravastatin (PRAVACHOL) 10 mg tablet Take 1 tablet by mouth once daily. carvedilol (COREG) 3.125 mg tablet Take 1 tablet by mouth twice daily. traZODone (DESYREL) 50 mg tablet Take 2 tablets by mouth daily at bedtime. loratadine (CLARITIN) 10 mg tablet Take 10 mg by mouth once daily as needed for Cold/Allergy Symptoms. vitamin B complex (B COMPLEX ORAL) Take 1 tablet by mouth once daily. multivitamin tablet Take 1 tablet by mouth once daily. DULoxetine (CYMBALTA) 20 mg capsule Take 1 capsule by mouth once daily. (Patient not taking: Reported on 12/12/2022) insulin needles, DISPOSABLE, (EASY TOUCH) 31 gauge x 5/16 Use with insulin 5 times daily as directed. No current facility-administered medications for this visit. Allergies: Atorvastatin, Metoprolol, and Seasonal Allergies ROS: General (negative for fatigue, malaise, weight loss/gain) HEENT (negative for headache, earache, recent vision changes, sinus pain, sore throat) Respiratory (no recent shortness of breath, hemoptysis) CV (negative for chest tightness, palpitations) Musculoskeletal (see HPI) Psych (no depression, anxiety) Bill Nunes MD documented in this encounter [facility] 11-25-2022 Miscellaneous Notes Pt called and is notified of providers message and instructions. Pt voices understanding. Renay Engel RN Increase LISINOPRIL from 20 mg to 40 mg daily. Requested Prescriptions Signed Prescriptions Disp Refills lisinopril (ZESTRIL, PRINIVIL) 40 mg tablet 90 tablet 3 Sig: Take 1 tablet by mouth once daily. Authorizing Provider: SANTANA CARLIN Order entered - please phone pharmacy and notify patient. Santana Carlin MD Manual Readin/80 Pulse: 80 BP Jacky average: 141/80 P: 78 Repeat BP Check: 139/79 P77 #1 145/79 P77 #2 147/75 P77 #3 132/84 P79 #4 137/80 P78 #5 147/83 P78 #6 Reason for blood pressure check - Last BP elevated Patient is: Taking medication as prescribed Yes Took medication today Yes If no, date medication last taken N/A Experiencing side effects No BP was elevated at last appt 10/21/22. No BP medication changes were made at that time. Taking all medications as prescribed. Denies any chest pain, shortness of breath, dizziness, or headaches. Daily caffeine use. No personal history of tobacco use; no current exposure. Alert and oriented. Pt has been identified by name and birthdate: Yes Allergies reviewed: Yes Latex allergy: no. Medication - prescribed and OTC reviewed and updated: Yes Do you need any prescription refills prior to your next visit: No Health Maintenance: Reviewed and not up to date and provider notified Patient advised that he would be contacted after review by PCP. Anabella Dorsey LPN documented in this encounter [facility] 11-20-2022 Note HNO ID: [id number] Author: Anabella Dorsey LPN Service: ? Author Type: ? Type: Progress Notes Filed: 11/20/2022 3:35 PM Note Text: Manual Readin/80 Pulse: 80 BP Jacky average: 141/80 P: 78 Repeat BP Check: 139/79 P77 #1 145/79 P77 #2 147/ P77 #3 132/84 P79 #4 137/80 P78 #5 147/ P78 #6 Reason for blood pressure check - Last BP elevated Patient is: Taking medication as prescribed Yes Took medication today Yes If no, date medication last taken N/A Experiencing side effects No BP was elevated at last appt 10/21/22. No BP medication changes were made at that time. Taking all medications as prescribed. Denies any chest pain, shortness of breath, dizziness, or headaches. Daily caffeine use. No personal history of tobacco use; no current exposure. Alert and oriented. Pt has been identified by name and birthdate: Yes Allergies reviewed: Yes Latex allergy: no. Medication - prescribed and OTC reviewed and updated: Yes Do you need any prescription refills prior to your next visit: No Health Maintenance: Reviewed and not up to date and provider notified Patient advised that he would be contacted after review by PCP. Anabella Dorsey LPN [facility] 11-20-2022 History of Presen t illness Narrative Manual Readin/80 Pulse: 80 BP Jacky average: 141/80 P: 78 Repeat BP Check: 139/79 P77 #1 145/79 P77 #2 147/75 P77 #3 132/84 P79 #4 137/80 P78 #5 147/ P78 #6 Reason for blood pressure check - Last BP elevated Patient is: Taking medication as prescribed Yes Took medication today Yes If no, date medication last taken N/A Experiencing side effects No BP was elevated at last appt 10/21/22. No BP medication changes were made at that time. Taking all medications as prescribed. Denies any chest pain, shortness of breath, dizziness, or headaches. Daily caffeine use. No personal history of tobacco use; no current exposure. Alert and oriented. Pt has been identified by name and birthdate: Yes Allergies reviewed: Yes Latex allergy: no. Medication - prescribed and OTC reviewed and updated: Yes Do you need any prescription refills prior to your next visit: No Health Maintenance: Reviewed and not up to date and provider notified Patient advised that he would be contacted after review by PCP. Anabella Dorsey LPN documented in this encounter [facility] 10-29-2022 Note HNO ID: [id number] Author: Abby Aguilar Service: ? Author Type: ? Type: Progress Notes Filed: 10/29/2022 9:08 AM Note Text: Patient scheduled colonoscopy 02-03-23 Sent [employer] Bowel Prep Instructions to Stevet Abby [facility] 10-22-2022 Note HNO ID: [id number] Author: Abby Aguilar Service: ? Author Type: ? Type: Progress Notes Filed: 10/22/2022 1:47 PM Note Text: 10-22. First attempt to contact patient to schedule colonoscopy. [facility] message to return call. [facility] 10-21-2022 Note HNO ID: [id number] Author: Santana Carlin MD Service: ? Author Type: Physician Type: Progress Notes Filed: 10/21/2022 5:51 PM Note Text: This note was created using [employer]. Subjective Patient presents with: Yearly Exam Quique Escamilla is a 62 year old male. He was doing well. His labs were not yet done, and his blood pressure was slightly elevated today. Work stressors were manageable. He was not seeing Dr. Palomares since Dr. Palomares was out of his network. He was due for another colonoscopy due to poor prep last November. He had a wound on his left foot for a few days, after stepping on a sharp edge of a bed frame. Review of Systems Constitutional: Negative. HENT: Negative. Eyes: Negative. Respiratory: Negative. Cardiovascular: Negative. Gastrointestinal: Negative. Genitourinary: Negative. Musculoskeletal: Negative. Skin: Positive for wound. Neurological: Negative. PAST MEDICAL HISTORY Diagnosis Date Abnormal EKG [address] changes, stress test neg. Anxiety Bladder stone 02/13/2016 BPH (benign prostatic hypertrophy) with urinary obstruction 02/13/2016 Complex renal cyst 02/13/2016 Coronary artery disease involving [place] coronary artery of [place] heart with angina pectoris (HCC) 08/12/2019 Fracture of phalanx of left foot, closed 03/15/2017 Hydrocele Hyperlipidemia Hypertension Internal hemorrhoids without mention of complication Kidney stone 02/13/2016 Nontraumatic pain of right shoulder 03/29/2020 Right hydrocele 12/11/2021 S/P CABG x 3 09/24/2019 Spondylolisthesis, grade 1 2008 L5S1 radiculopathy on nerve testing Type II or unspecified type diabetes mellitus without mention of complication, uncontrolled 12/21/2010 Winged scapula, right 01/12/2020 PAST SURGICAL HISTORY Procedure Laterality Date CABG (3) VEIN GRAFTS AND ARTERIAL GRAFT(S) 09/23/2019 COLONOSCOPY 12/03/2021 repeat in 1 year, due to poor colon prep. COLONOSCOPY FLX DX W/COLLJ SPEC WHEN PFRMD 09/02/2011 REMOVAL OF HYDROCELE Right 12/11/2021 FAMILY HISTORY Problem Relation Age of Onset No Known Problems Mother Genitourinary () Father kidney stones Prostate Cancer Father 82 Hypertension Sister Genitourinary () Sister kidney stones None Brother Colon Cancer Maternal Grandmother Social History Tobacco Use Smoking status: Never Smokeless tobacco: Never Vaping Use Vaping Use: Never used Substance Use Topics Alcohol use: Not Currently Drug use: No Immunization History Administered Date(s) Administered COVID-19 booster vaccine, age 12+ yr, bivalent ([employer]) 06/04/2022 COVID-19 original vaccine, age 12+ yr, monovalent ([employer] - PURPLE TOP) 12/05/2020 12/26/2020 07/02/2021 COVID-19 original vaccine, full dose, monovalent (MODERNA) 01/07/2022 Influenza Seasonal Inj Age 3+ 07/06/2015 07/01/2016 06/18/2017 Influenza Vaccine, Split-Non Spec 08/24/2012 06/14/2013 Pneumovax 06/14/2011 Tdap (Age 7+) 03/11/2011 03/15/2017 03/15/2017 Zoster Recombinant (Shingrix) 01/22/2018 01/25/2019 pneumococcal (PCV20) vaccine, 20 valent (PREVNAR 20) 04/18/2022 ALLERGIES Allergen Reactions Atorvastatin Myalgia Severe, debilitation, whole body myalgias and arthralgias Metoprolol Other: See Comments Cold hands and feet, resolved after discontinuation Seasonal Allergies Cough NKDA Current Outpatient Medications Medication Sig DULoxetine (CYMBALTA) 20 mg capsule Take 1 capsule by mouth once daily. metFORMIN (GLUCOPHAGE) 1,000 mg tablet Take 1 tablet by mouth twice daily with meals. montelukast (SINGULAIR) 10 mg tablet Take 1 tablet by mouth daily at bedtime. SITagliptin (JANUVIA) 100 mg tablet Take 1 tablet by mouth once daily. lisinopril (ZESTRIL, PRINIVIL) 20 mg tablet Take 1 tablet by mouth once daily. fenofibrate nanocrystallized (TRICOR) 145 mg tablet Take 1 tablet by mouth once daily. insulin lispro (HUMALOG KWIKPEN) 100 unit/mL 16 units with breakfast. 16 units with lunch. 20 units with supper. insulin NPH (HumuLIN N,NovoLIN N) pen 25 units with breakfast. 30 units with dinner. insulin needles, DISPOSABLE, (EASY TOUCH) 31 gauge x 5/16 Use with insulin 5 times daily as directed. aspirin, enteric coated (ASPIRIN, ENTERIC COATED) 81 mg EC tablet Take 2 tablets by mouth once daily. pravastatin (PRAVACHOL) 10 mg tablet Take 1 tablet by mouth once daily. carvedilol (COREG) 3.125 mg tablet Take 1 tablet by mouth twice daily. traZODone (DESYREL) 50 mg tablet Take 2 tablets by mouth daily at bedtime. loratadine (CLARITIN) 10 mg tablet Take 10 mg by mouth once daily as needed for Cold/Allergy Symptoms. vitamin B complex (B COMPLEX ORAL) Take 1 tablet by mouth once daily. multivitamin tablet Take 1 tablet by mouth once daily. No current facility-administered medications for this visit. Objective BP 137/79 (BP Site: Left Arm, BP Position: Sitting, BP Cuff Size: Large Adult) (more content not included)... [facility] 10-21-2022 Note HNO ID: [id number] Author: Santana Carlin MD Service: ? Author Type: Physician Type: Progress Notes Filed: 10/21/2022 5:51 PM Note Text: WSTR OPEN ACCESS QUESTIONNAIRE 1. Are you currently having any new or unusual stomach/gastrointestinal issues at this time such as constipation, diarrhea, abdominal pain, rectal bleeding etc?No 2. Do you have any difficulty swallowing? No 3. Do you have any implanted devices such as a defibrillator, pacemaker, cardiac stents or deep brain stimulator? No 4. Do you take any Blood thinners such as Coumadin, Plavix, Xarelto, Eliquis, Brilinta or any other blood thinner? YES: Low Dose Aspirijn 5. Do you have any new or past cardiac (heart) or pulmonary (lung) issues? No 6. Do you currently use any oxygen? No 7. Have you been hospitalized in the past 6 weeks? No 8. Have you had difficulty with anesthesia previously re: Difficult intubation? No Other difficulty or allergic reaction to anesthesia other than post op N/V? No 9. Are you on dialysis? No 10. Do you have any bleeding disorders such as hemophilia or Factor 5? No 11. Are you an Insulin Dependent Diabetic? Yes: insulin dependent IF ANY OF THE TOP ELEVEN QUESTIONS ARE ANSWERED YES PLEASE SCHEDULE THE PATIENT FOR A CONSULT. advised 12. Is the patient's BMI 40 or greater? No:Body mass index is 32.71 kg/m?.. 13. Do you take any narcotics or anti-Anxiety medications? Yes / Cymbalta 14. Do you use any illegal or recreational drugs including marijuana? No 15. Any alcohol use: No. 16. Have you been diagnosed with chronic liver disease such as hepatitis or cirrhosis? No 17. Do you have a seizure disorder? No 18. Do you have ulcerative colitis or Crohn's disease? No 19. Are you or could you be ? No 20. Any other important health information we should be made aware of prior to your colonoscopy? No To be completed by LIP: Did patient have MAC anesthesia with a previous endoscopy procedure? No Patient appropriate for Open Access Colonoscopy: Yes: appropriate for Open Access Procedure Checklist: Prior to closing the encounter: Complete questionnaire: Yes Confirm Prep order has been Ordered/Pended: Yes. Patient's procedure could be delayed if not given the script for the prep. Please ensure the prep is escripted to pharmacy or printed. Instructions for the prep will print upon filing or pending this smartset. Please send all open access questionnaires to [facility] Pool #[id number] [facility] 10-21-2022 Instructions Santana Carlin MD - 10/21/2022 5:40 PM EST Health Information For Patients and the Community How to Prepare for Your Colonoscopy Using Golytely, Nulytely, Trilyte or Colyte Preparations IMPORTANT - Please Read These Instructions at Least 2 Weeks Before Your Colonoscopy [place] Instructions: ?Your bowel must be empty so that your doctor can clearly view your colon. Follow all of the instructions in this handout EXACTLY as they are written. If you do NOT follow the directions for when to start drinking the bowel preparation (see next page), your colonoscopy WILL be cancelled. ?Do NOT eat any solid food the ENTIRE day before your colonoscopy. ?Buy your bowel preparation at least 5 days before your colonoscopy. ?Do NOT mix the solution until the day before your colonoscopy. Designated Personal Health Coach on the Day of Your Exam A responsible family member or friend MUST come with you to your colonoscopy and REMAIN in the endoscopy area until you are discharged! You are NOT ALLOWED to drive, take a taxi or bus, or leave the Endoscopy Center ALONE. If you do not have a responsible nascar driver (family member or friend) with you to take you home, your exam cannot be done with sedation and will be cancelled. Medications Some of the medicines you take may need to be stopped or adjusted before your colonoscopy. You MUST call the doctor who ordered any of the following medicines at least 2 weeks before your colonoscopy. ?Blood thinners -- such as Coumadin (warfarin), Plavix (clopidogrel), Ticlid (ticlopidine hydrochloride), Agrylin (anagrelide), Xarelto (Rivaroxaban), Pradaxa (Dabigatran), Eliquis (Apixaban), and Effient (Prasugrel). ?Insulin or diabetes pills. Please call the doctor that monitors your glucose levels. Your insulin dosage may need to be adjusted due to the diet restrictions required with this bowel preparation. (Please bring your diabetes medicines with you on the day of your procedure.) If you take aspirin, take it and ALL other medications prescribed by your doctor. On the day of your colonoscopy, take your medications with a sip of water. Revised 10/2016 1 Five (5) Days Before Your Colonoscopy ?Do NOT take medicines that stop diarrhea -- such as Imodium , Kaopectate , or Pepto Bismol . ?Do NOT take fiber supplements -- such as Metamucil , Citrucel , or Perdiem . ?Do NOT take products that contain iron -- such as multi-vitamins -- (the label lists what is in the products). ?Do NOT take vitamin E. Buy the prescription bowel preparation solution at your local pharmacy or drugstore pharmacy. Three (3) Days Before Your Colonoscopy Do NOT eat high-fiber foods -- such as popcorn, beans, seeds (flax, sunflower, quinoa), multigrain bread, nuts, salad/vegetables, or fresh and dried fruit. One (1) Day Before Your Colonoscopy Only drink clear liquids the ENTIRE DAY before your colonoscopy. Do NOT eat any solid foods. Drink at least 8 ounces of clear liquids every hour after waking up. The clear liquids you can drink include: ?water, apple, or white grape juice; broth; coffee or tea (without milk or creamer); clear carbonated beverages such as victoriano tab or lemon-kaibab soda; Gatorade or other sports drinks (not red); Jimmy-Aid or other flavored drinks (not red). You may eat plain jello or other gelatins (not red) or popsicles (not red). Do NOT drink alcohol on the day before or the day of the procedure. 2 Revised 10/2016 When to Mix and Drink Your Bowel Prep Follow the instructions on the label. After mixing, place the solution in the refrigerator for a couple of hours before drinking. You may add the flavor packet that came with the bowel preparation. DO NOT add ice, sugar or any flavorings to the solution. Evening Before Your Colonoscopy ?Start drinking the bowel preparation at 6 PM the evening before your colonoscopy. Drink an 8-oz glass of bowel preparation every 10 minutes. You must finish drinking the solution by 9 PM the night before your scheduled procedure. ?You may continue to drink clear liquids only until midnight. Do NOT eat or drink ANYTHING after midnight the night before your procedure or your procedure may be cancelled. This is for your safety and will reduce the risk of having any food or liquid in your stomach move into your lungs (aspiration) during a procedure. If you take aspirin, take it and ALL other prescribed medicines with a sip of water on the day of your colonoscopy. Contact Information: If you are unable to keep your appointment or have any questions about the instructions, please call the facility where the procedure is being performed. Call between the hours of 8:00 AM and 5:00 PM. If you are calling after 5:00 PM, please call Nurse personnel monitor at [phone]. [facility] [address] [id number] Index # [id number] Revised 10/2016 3 Colonoscopy Procedure Overview Please Read Prior to the Procedure What is a Colonoscopy A colonoscopy is an outpatient procedure in which the inside of the large intestine (colon and rectum) is examined. A colonoscopy is commonly used to evaluate gastrointestinal symptoms, such as rectal and intestinal bleeding, abdominal pain, or changes in bowel habits. Colonoscopies are also performed in individuals without symptoms to check for colorectal polyps or cancer. A screening colonoscopy is recommended for anyone 50 years of age and older, and for anyone with parents, siblings or children with a history of colorectal cancer or polyps. What Happens Before a Colonoscopy To have a successful colonoscopy, your bowel must be empty so that your physician can clearly view the colon. To do this, it is very important to read and follow all of the instructions given to you at least 2 weeks BEFORE your exam. If your bowel is not empty, your colonoscopy will not be successful and may have to be repeated. If you feel nauseated or vomit while taking the bowel preparation, wait 30 minutes before drinking more fluid and start with small sips of solution. Some activity (such as walking) or a few soda crackers may help decrease the nausea you are feeling. If the nausea persists, please contact nurse director cloud transformation at [phone]. You may experience skin irritation around the anus due to the passage of liquid stools. To prevent and treat skin irritation, you should: ?Apply Vaseline or Desitin ointment to the skin around the anus before drinking the bowel preparation medications. These products can be purchased at any drugstore. ?Wipe the skin after each bowel movement with disposable wet wipes instead of toilet paper. These are found in the toilet paper area of the store. ?Sit in a bathtub filled with warm water for 10 to 15 minutes after you finish passing a stool; after soaking, blot the skin dry with a soft cloth, apply Vaseline or Desitin ointment to the anal area, and place a cotton ball just outside your anus to absorb leaking fluid. What Happens During a Colonoscopy During a colonoscopy, an experienced physician uses a colonoscope (a long, flexible instrument about 1/2 inch in diameter) to view the lining of the colon. The colonoscope is inserted into the rectum and advanced through the large intestine. If necessary during a colonoscopy, small amounts of tissue can be removed for analysis (a biopsy) and polyps can be identified and entirely removed. In many cases, a colonoscopy allows accurate diagnosis and treatment of colorectal problems without the need for a major operation. Revised 10/2016 5 ?You are asked to wear a hospital gown and an IV will be started. ?You are given a pain reliever and a sedative intravenously (in your vein). You will feel relaxed and somewhat drowsy. ?You will lie on your left side, with your knees drawn up towards your chest. ?A small amount of air is used to expand the colon so the physician can see the colon childs. ?You may feel mild cramping during the procedure. Cramping can be reduced by taking slow, deep breaths. ?The colonoscope is slowly withdrawn while the lining of your bowel is carefully examined. ?The procedure lasts from 30 minutes to 1 hour. What Happens After a Colonoscopy ?You will stay in a recovery room for observation until you are ready for discharge. ?You may feel some cramping or a sensation of having gas, but this quickly passes. ?If sedation has been given, a responsible family member or friend must drive you home. ?Avoid alcohol, driving, and operating machinery for 24 hours following the procedure. ?Unless otherwise instructed, you may immediately return to your normal diet. We recommend you wait until the day after your procedure to resume normal activities. ?If polyps were removed or a biopsy was taken, the physician performing your colonoscopy will tell you when it is safe to resume taking your blood thinners. ?If a biopsy was taken or a polyp was removed, you may notice a little amount of rectal bleeding for 1 to 2 days after the procedure. If you have a large amount of rectal bleeding, high or persistent fevers, or severe abdominal pain within the next 2 weeks, please go to your local emergency room and call the physician who performed your exam. 6 Revised 10/2016 Copyright [id number] [facility]. All rights reserved. Revised 10/2016 documented in this encounter [facility] 10-21-2022 History of Presen t illness Narrative This note was created using Ival[employer]. Subjective Patient presents with: Yearly Exam Quique Escamilla is a 62 year old male. He was doing well. His labs were not yet done, and his blood pressure was slightly elevated today. Work stressors were manageable. He was not seeing Dr. Palomares since Dr. Palomares was out of his network. He was due for another colonoscopy due to poor prep last November. He had a wound on his left foot for a few days, after stepping on a sharp edge of a bed frame. Review of Systems Constitutional: Negative. HENT: Negative. Eyes: Negative. Respiratory: Negative. Cardiovascular: Negative. Gastrointestinal: Negative. Genitourinary: Negative. Musculoskeletal: Negative. Skin: Positive for wound. Neurological: Negative. PAST MEDICAL HISTORY Diagnosis Date Abnormal EKG [address] changes, stress test neg. Anxiety Bladder stone 02/13/2016 BPH (benign prostatic hypertrophy) with urinary obstruction 02/13/2016 Complex renal cyst 02/13/2016 Coronary artery disease involving [place] coronary artery of [place] heart with angina pectoris (HCC) 08/12/2019 Fracture of phalanx of left foot, closed 03/15/2017 Hydrocele Hyperlipidemia Hypertension Internal hemorrhoids without mention of complication Kidney stone 02/13/2016 Nontraumatic pain of right shoulder 03/29/2020 Right hydrocele 12/11/2021 S/P CABG x 3 09/24/2019 Spondylolisthesis, grade 1 2008 L5S1 radiculopathy on nerve testing Type II or unspecified type diabetes mellitus without mention of complication, uncontrolled 12/21/2010 Winged scapula, right 01/12/2020 PAST SURGICAL HISTORY Procedure Laterality Date CABG (3) VEIN GRAFTS & ARTERIAL GRAFT(S) 09/23/2019 COLONOSCOPY 12/03/2021 repeat in 1 year, due to poor colon prep. COLONOSCOPY FLX DX W/COLLJ SPEC WHEN PFRMD 09/02/2011 REMOVAL OF HYDROCELE Right 12/11/2021 FAMILY HISTORY Problem Relation Age of Onset No Known Problems Mother Genitourinary () Father kidney stones Prostate Cancer Father 82 Hypertension Sister Genitourinary () Sister kidney stones None Brother Colon Cancer Maternal Grandmother Social History Tobacco Use Smoking status: Never Smokeless tobacco: Never Vaping Use Vaping Use: Never used Substance Use Topics Alcohol use: Not Currently Drug use: No Immunization History Administered Date(s) Administered COVID-19 booster vaccine, age 12+ yr, bivalent ([employer]) 06/04/2022 COVID-19 original vaccine, age 12+ yr, monovalent ([employer] - PURPLE TOP) 12/05/2020 12/26/2020 07/02/2021 COVID-19 original vaccine, full dose, monovalent (MODERNA) 01/07/2022 Influenza Seasonal Inj Age 3+ 07/06/2015 07/01/2016 06/18/2017 Influenza Vaccine, Split-Non Spec 08/24/2012 06/14/2013 Pneumovax 06/14/2011 Tdap (Age 7+) 03/11/2011 03/15/2017 03/15/2017 Zoster Recombinant (Shingrix) 01/22/2018 01/25/2019 pneumococcal (PCV20) vaccine, 20 valent (PREVNAR 20) 04/18/2022 ALLERGIES Allergen Reactions Atorvastatin Myalgia Severe, debilitation, whole body myalgias and arthralgias Metoprolol Other: See Comments Cold hands and feet, resolved after discontinuation Seasonal Allergies Cough NKDA Current Outpatient Medications Medication Sig DULoxetine (CYMBALTA) 20 mg capsule Take 1 capsule by mouth once daily. metFORMIN (GLUCOPHAGE) 1,000 mg tablet Take 1 tablet by mouth twice daily with meals. montelukast (SINGULAIR) 10 mg tablet Take 1 tablet by mouth daily at bedtime. SITagliptin (JANUVIA) 100 mg tablet Take 1 tablet by mouth once daily. lisinopril (ZESTRIL, PRINIVIL) 20 mg tablet Take 1 tablet by mouth once daily. fenofibrate nanocrystallized (TRICOR) 145 mg tablet Take 1 tablet by mouth once daily. insulin lispro (HUMALOG KWIKPEN) 100 unit/mL 16 units with breakfast. 16 units with lunch. 20 units with supper. insulin NPH (HumuLIN N,NovoLIN N) pen 25 units with breakfast. 30 units with dinner. insulin needles, DISPOSABLE, (EASY TOUCH) 31 gauge x 5/16 Use with insulin 5 times daily as directed. aspirin, enteric coated (ASPIRIN, ENTERIC COATED) 81 mg EC tablet Take 2 tablets by mouth once daily. pravastatin (PRAVACHOL) 10 mg tablet Take 1 tablet by mouth once daily. carvedilol (COREG) 3.125 mg tablet Take 1 tablet by mouth twice daily. traZODone (DESYREL) 50 mg tablet Take 2 tablets by mouth daily at bedtime. loratadine (CLARITIN) 10 mg tablet Take 10 mg by mouth once daily as needed for Cold/Allergy Symptoms. vitamin B complex (B COMPLEX ORAL) Take 1 tablet by mouth once daily. multivitamin tablet Take 1 tablet by mouth once daily. No current facility-administered medications for this visit. Objective BP 137/79 (BP Site: Left Arm, BP Position: Sitting, BP Cuff Size: Large Adult) Pulse 84 Temp 36.4 C (97.6 F) (Temporal) Resp 12 Ht 177.8 cm (5' 10 ) Wt 103.4 kg (228 lb) BMI 32.71 kg/m Physical Exam Constitutional: General: He is not in acute distress. Appearance: He is not ill-appearing. HENT: Head: Normocephalic. Eyes: Extraocular Movements: Extraocular movements intact. Neck: Vascular: No carotid bruit. Cardiovascular: Rate and Rhythm: Normal rate and regular rhythm. Heart sounds: No murmur heard. No gallop. Pulmonary: Effort: Pulmonary effort is normal. Breath sounds: Normal breath sounds. Abdominal: Palpations: Abdomen is soft. Tenderness: There is no abdominal tenderness. Hernia: No hernia is present. Musculoskeletal: General: No tenderness. Right lower leg: No edema. Left lower leg: No edema. Lymphadenopathy: Cervical: No cervical adenopathy. Neurological: General: No focal deficit present. Mental Status: He is alert and oriented to person, place, and time. Psychiatric: Mood and Affect: Mood normal. Behavior: Behavior normal. Feet:Shoes and socks removed, No deformities, ulcers, calluses, normal distal pulses, sensitive to 10 gm monofilament, and 15mm x 10 mm triangular clean dry granulating wound on the left plantar forefoot. Assessment and Plan 1. Routine medical exam - ICD9: V70.0, ICD10: Z00.00 (primary diagnosis) - Counseled on healthy diet and regular exercise - Discussed need for and benefit of weight loss. BMI 32.71 kg/(m^2) - Colorectal cancer screening recommended - agrees to Colonoscopy 2. Special screening for malignant neoplasms, colon - ICD9: V76.51, ICD10: Z12.11 - COLONOSCOPY SCREENING - PEG 3350 240 GRAM-ELECTROLYTES 22.72 GRAM-6.72 G-5.84 G POWDR FOR SOLN 3. Type 2 diabetes mellitus with both eyes affected by mild nonproliferative retinopathy without macular edema, with long-term current use of insulin (HCC) - ICD9: 250.50, 362.04, V58.67, ICD10: E11.3293, Z79.4 Controlled. Labs to be updated. 4. Essential hypertension - ICD9: 401.9, ICD10: I10 - fair control - Continue current medication(s) - Recommended regular aerobic exercise. - Recheck in 4 weeks, sooner should new symptoms or problems arise. - Reviewed risks of HTN and principles of treatment - Goal of BP <130/80 5. Hyperlipidemia, unspecified hyperlipidemia type - ICD9: 272.4, ICD10: E78.5 - to be determined upon return of lab results - Continue current medication. 6. Coronary artery disease involving [place] coronary artery of [place] heart without angina pectoris - ICD9: 414.01, ICD10: I25.10 He will check for cardiology in his network and call for referral. 7. Unspecified open wound, left foot, initial encounter - ICD9: 892.0, ICD10: S91.302A Non infected. Wound care discussed. Return for s/s infection or non healing. Santana Carlin MD [facility] OPEN ACCESS QUESTIONNAIRE 1. Are you currently having any new or unusual stomach/gastrointestinal issues at this time such as constipation, diarrhea, abdominal pain, rectal bleeding etc?No 2. Do you have any difficulty swallowing? No 3. Do you have any implanted devices such as a defibrillator, pacemaker, cardiac stents or deep brain stimulator? No 4. Do you take any Blood thinners such as Coumadin, Plavix, Xarelto, Eliquis, Brilinta or any other blood thinner? YES: Low Dose Aspirijn 5. Do you have any new or past cardiac (heart) or pulmonary (lung) issues? No 6. Do you currently use any oxygen? No 7. Have you been hospitalized in the past 6 weeks? No 8. Have you had difficulty with anesthesia previously re: Difficult intubation? No Other difficulty or allergic reaction to anesthesia other than post op N/V? No 9. Are you on dialysis? No 10. Do you have any bleeding disorders such as hemophilia or Factor 5? No 11. Are you an Insulin Dependent Diabetic? Yes: insulin dependent IF ANY OF THE TOP ELEVEN QUESTIONS ARE ANSWERED YES PLEASE SCHEDULE THE PATIENT FOR A CONSULT. advised 12. Is the patient's BMI 40 or greater? No:Body mass index is 32.71 kg/m .. 13. Do you take any narcotics or anti-Anxiety medications? Yes / Cymbalta 14. Do you use any illegal or recreational drugs including marijuana? No 15. Any alcohol use: No. 16. Have you been diagnosed with chronic liver disease such as hepatitis or cirrhosis? No 17. Do you have a seizure disorder? No 18. Do you have ulcerative colitis or Crohn's disease? No 19. Are you or could you be ? No 20. Any other important health information we should be made aware of prior to your colonoscopy? No To be completed by LIP: Did patient have MAC anesthesia with a previous endoscopy procedure? No Patient appropriate for Open Access Colonoscopy: Yes: appropriate for Open Access Procedure Checklist: Prior to closing the encounter: Complete questionnaire: Yes Confirm Prep order has been Ordered/Pended: Yes. Patient's procedure could be delayed if not given the script for the prep. Please ensure the prep is escripted to pharmacy or printed. Instructions for the prep will print upon filing or pending this smartset. Please send all open access questionnaires to [facility] Pool #[id number] documented in this encounter [facility] 09-18-2022 Note HNO ID: [id number] Author: Jojo Sanford PA-C Service: ? Author Type: Physician Builder Operator Type: Progress Notes Filed: 09/18/2022 5:44 PM Note Text: This note was created using [employer]. Subjective Quique Escamilla is a 62 year old male. HPI Patient presents with a chief complaint of sinus pressure, pain, dizziness. He had a cold about 3 weeks ago but the sinus pressure has continued. His left ear feels like the eustachian tube is clogged as well. He is having trouble hearing. States sometimes when he is walking he will feel little dizzy. He has had this previously. He has a history of sinus infections before and this feels similar. No recent fever. No vomiting or diarrhea. Review of Systems Constitutional: Negative for fever. HENT: Positive for congestion, hearing loss, sinus pressure and sinus pain. Respiratory: Negative. Cardiovascular: Negative. Gastrointestinal: Negative. Genitourinary: Negative. Musculoskeletal: Negative. Neurological: Positive for dizziness. Negative for headaches. All other systems reviewed and are negative. PAST MEDICAL HISTORY Diagnosis Date Abnormal EKG [address] changes, stress test neg. Anxiety Bladder stone 02/13/2016 BPH (benign prostatic hypertrophy) with urinary obstruction 02/13/2016 Complex renal cyst 02/13/2016 Coronary artery disease involving [place] coronary artery of [place] heart with angina pectoris (HCC) 08/12/2019 Fracture of phalanx of left foot, closed 03/15/2017 Hydrocele Hyperlipidemia Hypertension Internal hemorrhoids without mention of complication Kidney stone 02/13/2016 Nontraumatic pain of right shoulder 03/29/2020 Right hydrocele 12/11/2021 S/P CABG x 3 09/24/2019 Spondylolisthesis, grade 1 2008 L5S1 radiculopathy on nerve testing Type II or unspecified type diabetes mellitus without mention of complication, uncontrolled 12/21/2010 Winged scapula, right 01/12/2020 Current Outpatient Medications Medication Sig Dispense Refill DULoxetine (CYMBALTA) 20 mg capsule Take 1 capsule by mouth once daily. 90 capsule 3 metFORMIN (GLUCOPHAGE) 1,000 mg tablet Take 1 tablet by mouth twice daily with meals. 180 tablet 3 montelukast (SINGULAIR) 10 mg tablet Take 1 tablet by mouth daily at bedtime. 90 tablet 3 SITagliptin (JANUVIA) 100 mg tablet Take 1 tablet by mouth once daily. 90 tablet 3 lisinopril (ZESTRIL, PRINIVIL) 20 mg tablet Take 1 tablet by mouth once daily. 90 tablet 3 fenofibrate nanocrystallized (TRICOR) 145 mg tablet Take 1 tablet by mouth once daily. 90 tablet 3 insulin lispro (HUMALOG KWIKPEN) 100 unit/mL 16 units with breakfast. 16 units with lunch. 20 units with supper. 20 Pen 3 insulin NPH (HumuLIN N,NovoLIN N) pen 25 units with breakfast. 30 units with dinner. 20 Pen 3 insulin needles, DISPOSABLE, (EASY TOUCH) 31 gauge x 5/16 Use with insulin 5 times daily as directed. 450 Each 3 aspirin, enteric coated (ASPIRIN, ENTERIC COATED) 81 mg EC tablet Take 2 tablets by mouth once daily. 180 tablet 3 pravastatin (PRAVACHOL) 10 mg tablet Take 1 tablet by mouth once daily. 90 tablet 3 carvedilol (COREG) 3.125 mg tablet Take 1 tablet by mouth twice daily. 180 tablet 3 traZODone (DESYREL) 50 mg tablet Take 2 tablets by mouth daily at bedtime. 180 tablet 3 loratadine (CLARITIN) 10 mg tablet Take 10 mg by mouth once daily as needed for Cold/Allergy Symptoms. vitamin B complex (B COMPLEX ORAL) Take 1 tablet by mouth once daily. multivitamin tablet Take 1 tablet by mouth once daily. amoxicillin-clavulanic acid (AUGMENTIN) 875-125 mg per tablet Take 1 tablet by mouth twice daily for 7 days. 14 tablet 0 No current facility-administered medications for this visit. PAST SURGICAL HISTORY Procedure Laterality Date CABG (3) VEIN GRAFTS AND ARTERIAL GRAFT(S) 09/23/2019 COLONOSCOPY 12/03/2021 repeat in 1 year, due to poor colon prep. COLONOSCOPY FLX DX W/COLLJ SPEC WHEN PFRMD 09/02/2011 REMOVAL OF HYDROCELE Right 12/11/2021 FAMILY HISTORY Problem Relation Age of Onset No Known Problems Mother Genitourinary () Father kidney stones Prostate Cancer Father 82 Hypertension Sister Genitourinary () Sister kidney stones None Brother Colon Cancer Maternal Grandmother Social History Tobacco Use Smoking status: Never Smokeless tobacco: Never Vaping Use Vaping Use: Never used Substance Use Topics Alcohol use: Not Currently Drug use: No Objective BP 142/82 Pulse 76 Temp 36.1 ?C (96.9 ?F) Resp 16 Wt 106.6 kg (235 lb) SpO2 96% BMI 33.72 kg/m? Physical Exam Vitals reviewed. Constitutional: Appearance: Normal appearance. HENT: Head: Normocephalic and atraumatic. Right Ear: Tympanic membrane, ear canal and external ear normal. Left Ear: There is impacted cerumen. Nose: Right Sinus: Maxillary sinus tenderness and frontal sinus tenderness present. Left Sinus: Maxillary sinus tenderness and frontal sinus tenderness (more content not included)... [facility] 09-18-2022 History of Presen t illness Narrative This note was created using [employer]val[employer]. Subjective Quique Escamilla is a 62 year old male. HPI Patient presents with a chief complaint of sinus pressure, pain, dizziness. He had a cold about 3 weeks ago but the sinus pressure has continued. His left ear feels like the eustachian tube is clogged as well. He is having trouble hearing. States sometimes when he is walking he will feel little dizzy. He has had this previously. He has a history of sinus infections before and this feels similar. No recent fever. No vomiting or diarrhea. Review of Systems Constitutional: Negative for fever. HENT: Positive for congestion, hearing loss, sinus pressure and sinus pain. Respiratory: Negative. Cardiovascular: Negative. Gastrointestinal: Negative. Genitourinary: Negative. Musculoskeletal: Negative. Neurological: Positive for dizziness. Negative for headaches. All other systems reviewed and are negative. PAST MEDICAL HISTORY Diagnosis Date Abnormal EKG [address] changes, stress test neg. Anxiety Bladder stone 02/13/2016 BPH (benign prostatic hypertrophy) with urinary obstruction 02/13/2016 Complex renal cyst 02/13/2016 Coronary artery disease involving [place] coronary artery of [place] heart with angina pectoris (HCC) 08/12/2019 Fracture of phalanx of left foot, closed 03/15/2017 Hydrocele Hyperlipidemia Hypertension Internal hemorrhoids without mention of complication Kidney stone 02/13/2016 Nontraumatic pain of right shoulder 03/29/2020 Right hydrocele 12/11/2021 S/P CABG x 3 09/24/2019 Spondylolisthesis, grade 1 2007 L5S1 radiculopathy on nerve testing Type II or unspecified type diabetes mellitus without mention of complication, uncontrolled 12/21/2010 Winged scapula, right 01/12/2020 Current Outpatient Medications Medication Sig Dispense Refill DULoxetine (CYMBALTA) 20 mg capsule Take 1 capsule by mouth once daily. 90 capsule 3 metFORMIN (GLUCOPHAGE) 1,000 mg tablet Take 1 tablet by mouth twice daily with meals. 180 tablet 3 montelukast (SINGULAIR) 10 mg tablet Take 1 tablet by mouth daily at bedtime. 90 tablet 3 SITagliptin (JANUVIA) 100 mg tablet Take 1 tablet by mouth once daily. 90 tablet 3 lisinopril (ZESTRIL, PRINIVIL) 20 mg tablet Take 1 tablet by mouth once daily. 90 tablet 3 fenofibrate nanocrystallized (TRICOR) 145 mg tablet Take 1 tablet by mouth once daily. 90 tablet 3 insulin lispro (HUMALOG KWIKPEN) 100 unit/mL 16 units with breakfast. 16 units with lunch. 20 units with supper. 20 Pen 3 insulin NPH (HumuLIN N,NovoLIN N) pen 25 units with breakfast. 30 units with dinner. 20 Pen 3 insulin needles, DISPOSABLE, (EASY TOUCH) 31 gauge x 5/16 Use with insulin 5 times daily as directed. 450 Each 3 aspirin, enteric coated (ASPIRIN, ENTERIC COATED) 81 mg EC tablet Take 2 tablets by mouth once daily. 180 tablet 3 pravastatin (PRAVACHOL) 10 mg tablet Take 1 tablet by mouth once daily. 90 tablet 3 carvedilol (COREG) 3.125 mg tablet Take 1 tablet by mouth twice daily. 180 tablet 3 traZODone (DESYREL) 50 mg tablet Take 2 tablets by mouth daily at bedtime. 180 tablet 3 loratadine (CLARITIN) 10 mg tablet Take 10 mg by mouth once daily as needed for Cold/Allergy Symptoms. vitamin B complex (B COMPLEX ORAL) Take 1 tablet by mouth once daily. multivitamin tablet Take 1 tablet by mouth once daily. amoxicillin-clavulanic acid (AUGMENTIN) 875-125 mg per tablet Take 1 tablet by mouth twice daily for 7 days. 14 tablet 0 No current facility-administered medications for this visit. PAST SURGICAL HISTORY Procedure Laterality Date CABG (3) VEIN GRAFTS & ARTERIAL GRAFT(S) 09/23/2019 COLONOSCOPY 12/03/2021 repeat in 1 year, due to poor colon prep. COLONOSCOPY FLX DX W/COLLJ SPEC WHEN PFRMD 09/02/2011 REMOVAL OF HYDROCELE Right 12/11/2021 FAMILY HISTORY Problem Relation Age of Onset No Known Problems Mother Genitourinary () Father kidney stones Prostate Cancer Father 82 Hypertension Sister Genitourinary () Sister kidney stones None Brother Colon Cancer Maternal Grandmother Social History Tobacco Use Smoking status: Never Smokeless tobacco: Never Vaping Use Vaping Use: Never used Substance Use Topics Alcohol use: Not Currently Drug use: No Objective BP 142/82 Pulse 76 Temp 36.1 C (96.9 F) Resp 16 Wt 106.6 kg (235 lb) SpO2 96% BMI 33.72 kg/m Physical Exam Vitals reviewed. Constitutional: Appearance: Normal appearance. HENT: Head: Normocephalic and atraumatic. Right Ear: Tympanic membrane, ear canal and external ear normal. Left Ear: There is impacted cerumen. Nose: Right Sinus: Maxillary sinus tenderness and frontal sinus tenderness present. Left Sinus: Maxillary sinus tenderness and frontal sinus tenderness present. Mouth/Throat: Mouth: Mucous membranes are moist. Pharynx: Oropharynx is clear. Cardiovascular: Rate and Rhythm: Normal rate and regular rhythm. Heart sounds: Normal heart sounds. Pulmonary: Effort: Pulmonary effort is normal. Breath sounds: Normal breath sounds. Musculoskeletal: Cervical back: Neck supple. Lymphadenopathy: Cervical: No cervical adenopathy. Skin: General: Skin is warm and dry. Neurological: Mental Status: He is alert. Assessment and Plan ASSESSMENT/PLAN: 1. Acute non-recurrent maxillary sinusitis - ICD9: 461.0, ICD10: J01.00 (primary diagnosis) - Will begin treatment with Augmentin 875 mg PO BID for 7 days - Supportive care with plenty of fluids, rest, and analgesia prn. - Follow up in 3-5 days if symptoms persist or worsen. - AMOXICILLIN 875 MG-POTASSIUM CLAVULANATE 125 MG TABLET 2. Hearing loss of left ear due to cerumen impaction - ICD9: 389.8, 380.4, ICD10: H61.22 This was flushed by nursing staff and patient feels much improved after. I did visualize the TM which was intact after flushing. - AMBULATORY EAR LAVAGE/IRRIGATION Jojo Sanford PA-C documented in this encounter [facility] 09-18-2022 Instructions Jojo Sanford PA-C - 09/18/2022 4:28 PM EST Flonase Meclizine for dizziness documented in this encounter [facility] 06-26-2022 Miscellaneous Notes Left msg on identified vm, RX sent to pharmacy, appt sooner if needed per PCP. Corina Joshi LPN Patient's request for medication is as follows Requested Prescriptions Signed Prescriptions Disp Refills DULoxetine (CYMBALTA) 20 mg capsule 30 capsule 1 Sig: Take 1 capsule by mouth once daily. Authorizing Provider: SANTANA CARLIN Schedule follow up sooner if needed. Santana Carlin MD Patient calls and states that at last appointment provider had offered to prescribe patient something for anxiety. Patient at that time he had declined medication. Patient calling at this time to ask if provider will order him something for anxiety? [facility] if agreeable. Please review and advise, Danika Banks RN documented in this encounter [facility] 04-18-2022 History of Presen t illness Narrative This note was created using [employer]. Subjective Patient presents with: F/U 6 months Quique Escamilla is a 62 year old male. He felt well. His left shoulder was getting better. He followed with [facility] and was hoping he will not need surgery. His hypertension, coronary artery disease, diabetes mellitus, and lipids were controlled. Review of Systems Constitutional: Negative. Respiratory: Negative. Cardiovascular: Negative. Gastrointestinal: Negative. Neurological: Negative. 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 metFORMIN (GLUCOPHAGE) 1,000 mg tablet Take 1 tablet by mouth twice daily with meals. montelukast (SINGULAIR) 10 mg tablet Take 1 tablet by mouth daily at bedtime. SITagliptin (JANUVIA) 100 mg tablet Take 1 tablet by mouth once daily. lisinopril (ZESTRIL, PRINIVIL) 20 mg tablet Take 1 tablet by mouth once daily. fenofibrate nanocrystallized (TRICOR) 145 mg tablet Take 1 tablet by mouth once daily. insulin lispro (HUMALOG KWIKPEN) 100 unit/mL 16 units with breakfast. 16 units with lunch. 20 units with supper. insulin NPH (HumuLIN N,NovoLIN N) pen 25 units with breakfast. 30 units with dinner. insulin needles, DISPOSABLE, (EASY TOUCH) 31 gauge x 5/16 Use with insulin 5 times daily as directed. aspirin, enteric coated (ASPIRIN, ENTERIC COATED) 81 mg EC tablet Take 2 tablets by mouth once daily. pravastatin (PRAVACHOL) 10 mg tablet Take 1 tablet by mouth once daily. carvedilol (COREG) 3.125 mg tablet Take 1 tablet by mouth twice daily. loratadine (CLARITIN) 10 mg tablet Take 10 mg by mouth once daily as needed for Cold/Allergy Symptoms. vitamin B complex (B COMPLEX ORAL) Take 1 tablet by mouth once daily. multivitamin tablet Take 1 tablet by mouth once daily. ibuprofen (MOTRIN) 800 mg tablet Take 1 tablet by mouth every 8 hours as needed for pain. No current facility-administered medications for this visit. Objective BP 122/70 (BP Site: Left Arm, BP Position: Sitting) Pulse 72 Temp (!) 35.7 C (96.3 F) (Temporal Artery) Resp 12 Wt 102.1 kg (225 lb) BMI 32.28 kg/m Physical Exam Constitutional: General: He is not in acute distress. Cardiovascular: Rate and Rhythm: Normal rate and regular rhythm. Heart sounds: No murmur heard. No gallop. Pulmonary: Effort: Pulmonary effort is normal. Breath sounds: Normal breath sounds. Musculoskeletal: Right lower leg: No edema. Left lower leg: No edema. Neurological: Mental Status: He is alert. Component Latest Ref Rng & Units 04/13/2022 Glucose 74 - 99 mg/dL 172 (H) BUN 9 - 24 mg/dL 14 Creatinine 0.73 - 1.22 mg/dL 0.90 Sodium 136 - 144 mmol/L 139 Potassium 3.7 - 5.1 mmol/L 4.4 Chloride 97 - 105 mmol/L 107 (H) CO2 22 - 30 mmol/L 20 (L) Anion Gap 9 - 18 mmol/L 12 Calcium 8.5 - 10.2 mg/dL 9.7 eGFR >=60 mL/min/1.73m 97 Hemoglobin A1C 4.3 - 5.6 % 6.5 (H) Estimated Average Glucose mg/dL 140 Assessment and Plan 1. 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, with long-term current use of insulin, macular edema presence unspecified (HCC) - ICD9: 250.50, 362.04, V58.67, ICD10: E11.3293, Z79.4 (primary diagnosis) Controlled. - METFORMIN 1,000 MG TABLET - SITAGLIPTIN 100 MG TABLET - INSULIN LISPRO (U-100) 100 UNIT/ML SUBCUTANEOUS PEN - INSULIN NPH ISOPHANE U-100 HUMAN 100 UNIT/ML (3 ML) SUBCUTANEOUS PEN - PEN NEEDLE, DIABETIC 31 GAUGE X 5/16 - COMP METABOLIC PANEL - LIPID PANEL BASIC - HGB A1C - ALBUMIN/CREAT RATIO RND UR 2. Chronic hypertrophic rhinitis - ICD9: 472.0, ICD10: J31.0 Controlled. - MONTELUKAST 10 MG TABLET 3. Hyperlipidemia, unspecified hyperlipidemia type - ICD9: 272.4, ICD10: E78.5 - good control - Continue current medication. - FENOFIBRATE NANOCRYSTALLIZED 145 MG TABLET - PRAVASTATIN 10 MG TABLET 4. Essential hypertension - ICD9: 401.9, ICD10: I10 - good control - Continue current medication(s) - Goal of BP <130/80 - LISINOPRIL 20 MG TABLET - CARVEDILOL 3.125 MG TABLET - CBC 5. Need for vaccination - ICD9: V05.9, ICD10: Z23 - PNEUMOCOCCAL VACCINE (PREVNAR 20) 6. Coronary artery disease involving [place] coronary artery of [place] heart without angina pectoris - ICD9: 414.01, ICD10: I25.10 Controlled. - ASPIRIN 81 MG TABLET,DELAYED RELEASE Santana Carlin MD documented in this encounter [facility] 03-26-2022 Miscellaneous Notes Patient has been identified by name and date of : Yes Patient phones for refill(s): Pending Prescriptions Disp Refills TRAZODONE 50 MG TABLET 180 tablet 3 Sig: Take 2 tablets by mouth daily at bedtime. ESTELLA: No Date of last office visit in primary care: 02/01/2022 Yearly: 04/18/2022 Last 2 Encounter Wt Readings: Date: Wt: 02/01/2022 103.4 kg (228 lb) 12/12/2021 101.6 kg (224 lb) Previous labs/tests for medication: Not applicable Please advise. Thank you. Corina Joshi LPN documented in this encounter [facility] 03-06-2022 Miscellaneous Notes I spoke to Carlos. He was seeing Dr. Tae Oseguera and was sent to open MRI in [place]. Lorazepam did not relax him. Patient's request for medication is as follows Signed Prescriptions Disp Refills ALPRAZolam (XANAX) 2 mg tablet 2 tablet 0 Sig: Take 1 tablet by mouth once daily as needed for sedation (30 minutes prior to procedures.) for up to 7 days. KAYLEIGH Class: C-IV Authorizing Provider: SANTANA CARLIN He requested [facility]. Santana Carlin MD Ativan 0.5mg was sent in for pt to take prior to MRI. Pt states he took it & it did absolutely nothing for him. Pt states he had the MRI but it was no good d/t too much movement, pt states he was breathing too heavy. Pt is frustrated as he is in pain & now will need to repeat MRI. Pt asking what pcp would recommend? Richa Newby LPN documented in this encounter [facility] 02-27-2022 Miscellaneous Notes Addressed in phone encounter 02/27 Jannette Saunders APRN.PEPPER documented in this encounter [facility] 02-01-2022 History of Presen t illness Narrative This note was created using [employer]. Subjective Quique Escamilla is a 62 year old male. He was pulling out a manhole cover yesterday when tools slipped. He fell backward still holding the tools, landing on his buttock and rolled to his left side, hitting his shoulder. There was no crack or pop but his shoulder pain was 7/10 instantly. He was taking ibuprofen and icing but he was unable to sleep last night due to the sharp pain, and any movement aggravated the pain. His hand felt numb as well. Review of Systems Constitutional: Negative. Neurological: Positive for numbness. 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 metFORMIN (GLUCOPHAGE) 1,000 mg tablet Take 1 tablet by mouth twice daily with meals. traZODone (DESYREL) 50 mg tablet Take 2 tablets by mouth daily at bedtime. montelukast (SINGULAIR) 10 mg tablet Take 1 tablet by mouth daily at bedtime. SITagliptin (JANUVIA) 100 mg tablet Take 1 tablet by mouth once daily. lisinopril (ZESTRIL, PRINIVIL) 20 mg tablet Take 1 tablet by mouth once daily. fenofibrate nanocrystallized (TRICOR) 145 mg tablet Take 1 tablet by mouth once daily. insulin lispro (HUMALOG KWIKPEN) 100 unit/mL 16 units with breakfast. 16 units with lunch. 20 units with supper. insulin NPH (HumuLIN N,NovoLIN N) pen 25 units with breakfast. 30 units with dinner. insulin needles, DISPOSABLE, (EASY TOUCH) 31 gauge x 5/16 Use with insulin 5 times daily as directed. aspirin, enteric coated (ASPIRIN, ENTERIC COATED) 81 mg EC tablet Take 2 tablets by mouth once daily. pravastatin (PRAVACHOL) 10 mg tablet Take 1 tablet by mouth once daily. carvedilol (COREG) 3.125 mg tablet Take 1 tablet by mouth twice daily. loratadine (CLARITIN) 10 mg tablet Take 10 mg by mouth once daily as needed for Cold/Allergy Symptoms. vitamin B complex (B COMPLEX ORAL) Take 1 tablet by mouth once daily. multivitamin tablet Take 1 tablet by mouth once daily. No current facility-administered medications for this visit. Objective BP 130/72 (BP Site: Right Arm, BP Position: Sitting, BP Cuff Size: Large Adult) Pulse 82 Temp (!) 35.3 C (95.5 F) Resp 12 Ht 177.8 cm (5' 10 ) Wt 103.4 kg (228 lb) SpO2 97% BMI 32.71 kg/m Physical Exam Constitutional: Appearance: He is diaphoretic. HENT: Head: Atraumatic. Cardiovascular: Pulses: Normal pulses. Pulmonary: Effort: Pulmonary effort is normal. Musculoskeletal: Left shoulder: Swelling and deformity present. Decreased range of motion. Left upper arm: Normal. Left elbow: Normal. Left forearm: Normal. Left wrist: Normal. Cervical back: Normal range of motion and neck supple. No tenderness. Comments: Anterior bulging, voluntary guarding. Neurological: Sensory: No sensory deficit. Motor: No weakness. Assessment and Plan 1. Acute pain of left shoulder - ICD9: 719.41, ICD10: M25.512 - I cannot rule out dislocation. - ER advised. I spoke to Dr. Reagan. Patient indicated understanding and willingness to follow recommendations. Santana Carlin MD documented in this encounter [facility] 02-01-2022 Nurse Note Worker comp claim # [id number] employer [employer] documented in this encounter [facility] 02-01-2022 Miscellaneous Notes Called Pt and let her know she needed to get all the Workmans Comp information from [employer]. Dr Donnelly gave them to ok to use the 400 pm PCP Flex spot, but said all the information had to be put in the computer ahead of time. They will call back in to talk with scheduling after they get off the phone with HR. Pts called and reports that her fell at work yesterday, and did not go into work today due to shoulder pain. Pt filled out forms at work yesterday. Pts is going to call his work and get the claim number to file a Workman's Comp claim. Waiting on Pts providers nurse to see if he would be able to fit him into his schedule for today. Will call back, otherwise let her know she could start case in UC until we could get him in to see PCP. documented in this encounter [facility] 12-12-2021 Note HNO ID: [id number] Author: Tanner Duran MD Service: ? Author Type: Physician Type: Progress Notes Filed: 12/12/2021 2:21 PM Note Text: S/p RIGHT hydrocelectomy 12/11/21 Here for drain removal Doing well Minimal pain or swelling Inc c/d/i [place] removed RTO 6-8 weeks Tanner Duran MD [facility] documented as of this encounter (statuses as of 04/18/2022) [facility] History of Past illness Narrative* Problem Noted Date Resolved Date Right hydrocele 12/11/2021 04/18/2022 Nontraumatic pain of right shoulder 03/29/2020 10/02/2020 Winged scapula, right 01/12/2020 10/02/2020 Cold extremities 11/04/2019 11/04/2019 CAD (coronary artery disease) 09/23/2019 Abnormal echocardiogram 08/27/2019 01/12/20 20 Kidney stone 02/13/2016 10/24/2016 Bladder stone 02/13/2016 10/24/2016 BPH (benign prostatic hypertrophy) with urinary obstruction 02/13/2016 01/22/2018 Complex renal cyst 02/13/2016 07/27/2017 Gross hematuria 02/13/2016 07/10/2017 DM (diabetes mellitus), type 2, uncontrolled 09/201001/22/2018 documented as of this encounter (statuses as of 06/26/2022) [facility] History of Past illness Narrative* Problem Noted Date Resolved Date Right hydrocele 12/11/2021 04/18/2022 Nontraumatic pain of right shoulder 03/29/2020 10/02/2020 Winged scapula, right 01/12/2020 10/02/2020 Cold extremities 11/04/2019 11/04/2019 CAD (coronary artery disease) 09/23/2019 Abnormal echocardiogram 08/27/2019 01/12/20 20 Kidney stone 02/13/2016 10/24/2016 Bladder stone 02/13/2016 10/24/2016 BPH (benign prostatic hypertrophy) with urinary obstruction 02/13/2016 01/22/2018 Complex renal cyst 02/13/2016 07/27/2017 Gross hematuria 02/13/2016 07/10/2017 DM (diabetes mellitus), type 2, uncontrolled 09/201001/22/2018 documented as of this encounter (statuses as of 09/15/2022) [facility] History of Past illness Narrative* Problem Noted Date Resolved Date Right hydrocele 12/11/2021 04/18/2022 Nontraumatic pain of right shoulder 03/29/2020 10/02/2020 Winged scapula, right 01/12/2020 10/02/2020 Cold extremities 11/04/2019 11/04/2019 CAD (coronary artery disease) 09/23/2019 Abnormal echocardiogram 08/27/2019 01/12/20 20 Kidney stone 02/13/2016 10/24/2016 Bladder stone 02/13/2016 10/24/2016 BPH (benign prostatic hypertrophy) with urinary obstruction 02/13/2016 01/22/2018 Complex renal cyst 02/13/2016 07/27/2017 Gross hematuria 02/13/2016 07/10/2017 DM (diabetes mellitus), type 2, uncontrolled 09/201001/22/2018 documented as of this encounter (statuses as of 09/25/2022) [facility] History of Past illness Narrative* Problem Noted Date Resolved Date Right hydrocele 12/11/2021 04/18/2022 Nontraumatic pain of right shoulder 03/29/2020 10/02/2020 Winged scapula, right 01/12/2020 10/02/2020 Cold extremities 11/04/2019 11/04/2019 CAD (coronary artery disease) 09/23/2019 Abnormal echocardiogram 08/27/2019 01/12/20 20 Kidney stone 02/13/2016 10/24/2016 Bladder stone 02/13/2016 10/24/2016 BPH (benign prostatic hypertrophy) with urinary obstruction 02/13/2016 01/22/2018 Complex renal cyst 02/13/2016 07/27/2017 Gross hematuria 02/13/2016 07/10/2017 DM (diabetes mellitus), type 2, uncontrolled 09/201001/22/2018 documented as of this encounter (statuses as of 10/22/2022) [facility] History of Past illness Narrative* Problem Noted Date Resolved Date Right hydrocele 12/11/2021 04/18/2022 Nontraumatic pain of right shoulder 03/29/2020 10/02/2020 Winged scapula, right 01/12/2020 10/02/2020 Cold extremities 11/04/2019 11/04/2019 CAD (coronary artery disease) 09/23/2019 Abnormal echocardiogram 08/27/2019 01/12/20 20 Kidney stone 02/13/2016 10/24/2016 Bladder stone 02/13/2016 10/24/2016 BPH (benign prostatic hypertrophy) with urinary obstruction 02/13/2016 01/22/2018 Complex renal cyst 02/13/2016 07/27/2017 Gross hematuria 02/13/2016 07/10/2017 DM (diabetes mellitus), type 2, uncontrolled 09/201001/22/2018 documented as of this encounter (statuses as of 11/21/2022) [facility] History of Past illness Narrative* Problem Noted Date Resolved Date Right hydrocele 12/11/2021 04/18/2022 Nontraumatic pain of right shoulder 03/29/2020 10/02/2020 Winged scapula, right 01/12/2020 10/02/2020 Cold extremities 11/04/2019 11/04/2019 CAD (coronary artery disease) 09/23/2019 Abnormal echocardiogram 08/27/2019 01/12/20 20 Kidney stone 02/13/2016 10/24/2016 Bladder stone 02/13/2016 10/24/2016 BPH (benign prostatic hypertrophy) with urinary obstruction 02/13/2016 01/22/2018 Complex renal cyst 02/13/2016 07/27/2017 Gross hematuria 02/13/2016 07/10/2017 DM (diabetes mellitus), type 2, uncontrolled 09/201001/22/2018 documented as of this encounter (statuses as of 11/25/2022) [facility] History of Past illness Narrative* Problem Noted Date Resolved Date Right hydrocele 12/11/2021 04/18/2022 Nontraumatic pain of right shoulder 03/29/2020 10/02/2020 Winged scapula, right 01/12/2020 10/02/2020 Cold extremities 11/04/2019 11/04/2019 CAD (coronary artery disease) 09/23/2019 Abnormal echocardiogram 08/27/2019 01/12/20 20 Kidney stone 02/13/2016 10/24/2016 Bladder stone 02/13/2016 10/24/2016 BPH (benign prostatic hypertrophy) with urinary obstruction 02/13/2016 01/22/2018 Complex renal cyst 02/13/2016 07/27/2017 Gross hematuria 02/13/2016 07/10/2017 DM (diabetes mellitus), type 2, uncontrolled 09/201001/22/2018 documented as of this encounter (statuses as of 01/20/2023) [facility] of Past illness Narrative* Problem Noted Date Resolved Date Right hydrocele 12/11/2021 04/18/2022 Nontraumatic pain of right shoulder 03/29/2020 10/02/2020 Winged scapula, right 01/12/2020 10/02/2020 Cold extremities 11/04/2019 11/04/2019 CAD (coronary artery disease) 09/23/2019 Abnormal echocardiogram 08/27/2019 01/12/20 20 Kidney stone 02/13/2016 10/24/2016 Bladder stone 02/13/2016 10/24/2016 BPH (benign prostatic hypertrophy) with urinary obstruction 02/13/2016 01/22/2018 Complex renal cyst 02/13/2016 07/27/2017 Gross hematuria 02/13/2016 07/10/2017 DM (diabetes mellitus), type 2, uncontrolled 09/201001/22/2018 documented as of this encounter (statuses as of 02/20/2023) [facility] History of Past illness Narrative* Problem Noted Date Resolved Date Right hydrocele 12/11/2021 04/18/2022 Nontraumatic pain of right shoulder 03/29/2020 10/02/2020 Winged scapula, right 01/12/2020 10/02/2020 Cold extremities 11/04/2019 11/04/2019 CAD (coronary artery disease) 09/23/2019 Abnormal echocardiogram 08/27/2019 01/12/20 20 Kidney stone 02/13/2016 10/24/2016 Bladder stone 02/13/2016 10/24/2016 BPH (benign prostatic hypertrophy) with urinary obstruction 02/13/2016 01/22/2018 Complex renal cyst 02/13/2016 07/27/2017 Gross hematuria 02/13/2016 07/10/2017 DM (diabetes mellitus), type 2, uncontrolled 09/201001/22/2018 documented as of this encounter (statuses as of 02/21/2023) [facility] of Past illness Narrative* Problem Noted Date Diagnosed Date Resolved Date Right hydrocele 12/11/2021 04/18/2022 Nontraumatic pain of right shoulder 03/29/2020 10/02/2020 Winged scapula, right 01/12/20202020 Cold extremities 11/04/2019 11/04/2019 CAD (coronary artery disease) 09/23/2019 10/20/2019 Abnormal echocardiogram 08/27/2019 04/2 10/2019 Kidney stone 02/13/2016 10/24/2016 Bladder stone 02/13/2016 10/24/2016 BPH (benign prostatic hypert rophy) with urinary obstruction 02/13/2016 01/22/2018 Complex renal cyst 02/13/2016 7 Gross hematuria 02/13/2016 07/10/2017 DM (diabetes mellitus), type 2, uncontrolled 1 01/22/2018 documented as of this encounter (statuses as of 04/26/2023) [facility] of Past illness Narrative* Problem Noted Date Diagnosed Date Resolved Date Right hydrocele 12/11/2021 04/18/2022 Nontraumatic pain of right shoulder 03/29/2020 10/02/2020 Winged scapula, right 01/12/20202020 Cold extremities 11/04/2019 11/04/2019 CAD (coronary artery disease) 09/23/2019 10/20/2019 Abnormal echocardiogram 08/27/2019 042 10/2019 Kidney stone 02/13/2016 10/24/2016 Bladder stone 02/13/2016 10/24/2016 BPH (benign prostatic hypert rophy) with urinary obstruction 02/13/2016 01/22/2018 Complex renal cyst 02/13/2016 7 Gross hematuria 02/13/2016 07/10/2017 DM (diabetes mellitus), type 2, uncontrolled 1 01/22/2018 documented as of this encounter (statuses as of 05/19/2023) [facility] of Past illness Narrative* Problem Noted Date Diagnosed Date Resolved Date Right hydrocele 12/11/2021 04/18/2022 Nontraumatic pain of right shoulder 03/29/2020 10/02/2020 Winged scapula, right 01/12/20202020 Cold extremities 11/04/2019 11/04/2019 CAD (coronary artery disease) 09/23/2019 10/20/2019 Abnormal echocardiogram 08/27/2019 04/2 10/2019 Kidney stone 02/13/2016 10/24/2016 Bladder stone 02/13/2016 10/24/2016 BPH (benign prostatic hypert rophy) with urinary obstruction 02/13/2016 01/22/2018 Complex renal cyst 02/13/2016 7 Gross hematuria 02/13/2016 07/10/2017 DM (diabetes mellitus), type 2, uncontrolled 1 01/22/2018 documented as of this encounter (statuses as of 06/05/2023) [facility] of Past illness Narrative* Problem Noted Date Diagnosed Date Resolved Date Right hydrocele 12/11/2021 04/18/2022 Nontraumatic pain of right shoulder 03/29/2020 10/02/2020 Winged scapula, right 01/12/20202020 Cold extremities 11/04/2019 11/04/2019 CAD (coronary artery disease) 09/23/2019 10/20/2019 Abnormal echocardiogram 08/27/201912/22 Kidney stone 02/13/2016 10/24/2016 Bladder stone 02/13/2016 10/24/2016 BPH (benign prostatic hypert rophy) with urinary obstruction 02/13/2016 01/22/2018 Complex renal cyst 02/13/2016 7 Gross hematuria 02/13/2016 07/10/2017 DM (diabetes mellitus), type 2, uncontrolled 1 01/22/2018 documented as of this encounter (statuses as of 06/21/2023) [facility] NoteHNO ID: [id number] Author: Jannette Amin APRN.NON DESTRUCTIVE TESTING TECHNICIAN Service: Anesthesiology Author Type: Nurse Claims Associate Type: Anesthesia Procedure Notes Filed: 12/11/2021 10:00 AM Note Text: ANESTHESIOLOGY PROCEDURE NOTE Airway General Information Procedure Start Time/Medication Administration: 12/11/2021 9:49 AM Patient location during procedure: OR Patient identity confirmed: arm band Staffing Anesthesiologist: Cain Aguilar MD NON DESTRUCTIVE TESTING TECHNICIAN: Jannette Amin APRN.NON DESTRUCTIVE TESTING TECHNICIAN Performed by: NON DESTRUCTIVE TESTING TECHNICIAN Indications and Patient Condition Preoxygenated: yes Patient position: sniffing Manual In-Line Stabilization: No Difficult mask ventilation: did not mask. Indications for airway management: anesthesia anesthesia circuit Method: asleep Cricoid Pressure: No Final Airway Details Final airway type: supraglottic airway Number of attempts at approach: 1 Final Supraglottic Airway: i-gel Size 5 Seal Adequate: yes Airway trauma: none. Failed airway: no Unrecognized esophageal intubation: no Airway not difficult SIGNATURE: Jannette Amin APRN.CRNA PATIENT NAME: Quique Escamilla DATE: December 11, 2021 TIME: 10:00 AM [facility]: [id number] NoteHNO ID: [id number] Author: Tanner Duran MD Service: ? Author Type: Physician Type: Progress Notes Filed: 11/22/2021 12:03 PM Note Text: [facility] UROLOGY ESTABLISHED PATIENT CLINIC NOTE PATIENT INFO: Quique Escamilla PCP: Santana Carlin MD UROLOGY DIAGNOSES: 1. Hydrocele in adult - ICD9: 603.9, ICD10: N43.3 (primary diagnosis) 2. Testicular pain, right - ICD9: 608.9, ICD10: N50.811 CHIEF COMPLAINT: Hydrocele HPI: Patient returns for continuing evaluation and management. 3 years of increasing swelling Now more uncomfortable No prior history Here with PMHx/PSHx: see above, otherwise unchanged Rx: reviewed and unchanged ROS: see above, otherwise unchanged Labs: Imaging: JORGE LUIS: IMPRESSION: 1. ?No intratesticular mass 2. ?Large bilateral hydroceles, right greater than left Normal arterial and venous flow within both testes. MEDICATIONS: Current Outpatient Medications Medication Sig - metFORMIN (GLUCOPHAGE) 1,000 mg tablet Take 1 tablet by mouth twice daily with meals. - traZODone (DESYREL) 50 mg tablet Take 2 tablets by mouth daily at bedtime. - montelukast (SINGULAIR) 10 mg tablet Take 1 tablet by mouth daily at bedtime. - SITagliptin (JANUVIA) 100 mg tablet Take 1 tablet by mouth once daily. - lisinopril (ZESTRIL, PRINIVIL) 20 mg tablet Take 1 tablet by mouth once daily. - fenofibrate nanocrystallized (TRICOR) 145 mg tablet Take 1 tablet by mouth once daily. - insulin lispro (HUMALOG KWIKPEN) 100 unit/mL 16 units with breakfast. 16 units with lunch. 20 units with supper. - insulin NPH (HumuLIN N,NovoLIN N) pen 25 units with breakfast. 30 units with dinner. - insulin needles, DISPOSABLE, (EASY TOUCH) 31 gauge x 5/16 Use with insulin 5 times daily as directed. - aspirin, enteric coated (ASPIRIN, ENTERIC COATED) 81 mg EC tablet Take 2 tablets by mouth once daily. - pravastatin (PRAVACHOL) 10 mg tablet Take 1 tablet by mouth once daily. - carvedilol (COREG) 3.125 mg tablet Take 1 tablet by mouth twice daily. - loratadine (CLARITIN) 10 mg tablet Take 10 mg by mouth once daily as needed for Cold/Allergy Symptoms. - vitamin B complex (B COMPLEX ORAL) Take 1 tablet by mouth once daily. - multivitamin tablet Take 1 tablet by mouth once daily. No current facility-administered medications for this visit. PHYSICAL EXAM: Ht 177.8 cm (5' 10 ) Wt 107 kg (236 lb) BMI 33.86 kg/m? Body mass index is 33.86 kg/m?. General: Well masculinized, well nourished male Psych: euthymic, NAD Neuro: AANDOx3 Inguinal: No lesions, adenopathy, or hernias Phallus: normal, circumcised, no lesions Meatus: orthotopic, patent, no discharge Scrotum: no lesions, normal rugae Testes: Descended, nontender, and no masses bilaterally - Large RIGHT hydrocele DIAGNOSES: 1. Hydrocele in adult - ICD9: 603.9, ICD10: N43.3 (primary diagnosis) 2. Testicular pain, right - ICD9: 608.9, ICD10: N50.811 IMPRESSION/PLAN: JORGE LUIS reviewed - Large RIGHT hydrocele and ependymal cysts Failed conservative mgmt Discussed treatment options of hydrocele Surgical excision is the standard treatment with highest recurrence free rate, alternatively aspiration of the fluid with in with injection of sclerotherapy. Which may increase the risk of recurrence and make definitive treatment more difficult Associates risks are infection, bleeding, development of scrotal hematuria, wound dehiscence, recurrence and need of reoperation. Injury to the testicles, epididymis, vascular supply the testicles. Which may result in testicular atrophy for needing orchiectomy. Complications related to the surgery including anesthesia, development of DVT, pulmonary embolism, positioning. Proceed with RIGHT hydrocelectomy and drain at HANDW Tanner Duran [facility]05-06-2021 NoteHNO ID: [id number] Author: Rancho Palomares MD Service: ? Author Type: Physician Type: Progress Notes Filed: 01/25/2021 6:23 PM Note Text: [facility] ([facility] [address] [place] [address] OUTPATIENT VISIT DATE 01/24/2021 PRIMARY CARE PHYSICIAN: Santana Carlin [address] [place] [address] HISTORY OF PRESENT ILLNESS: Mr. Escamilla is a 60 year old gentleman with a history of coronary artery disease and prior coronary bypass grafting, hypertension, dyslipidemia who is here for routine follow-up. Since his last office visit he has been doing extremely well. He denies any symptoms concerning for angina. In fact, he reported today that his functional capacity is better than it has been in years. He has not had symptoms for CHF including PND, orthopnea, or lower extremity edema. He denies any feelings of palpitations, lightheadedness, dizziness, or syncope PAST MEDICAL HISTORY Diagnosis Date - Abnormal EKG [address] changes, stress test neg. - Anxiety - Bladder stone 02/13/2016 - BPH (benign prostatic hypertrophy) with urinary obstruction 02/13/2016 - Complex renal cyst 02/13/2016 - Coronary artery disease involving [place] coronary artery of [place] heart with angina pectoris (HCC) 08/12/2019 - Coronary artery disease involving [place] coronary artery of [place] heart without angina pectoris 08/12/2019 - DM (diabetes mellitus) (HCC) - Fracture of phalanx of left foot, closed 03/15/2017 - Hyperlipidemia - Hypertension - Internal hemorrhoids without mention of complication - Kidney stone 02/13/2016 - Nontraumatic pain of right shoulder 03/29/2020 - S/P CABG x 3 09/24/2019 - Spondylolisthesis, grade 1 2008 [id number] radiculopathy on nerve testing - Type II or unspecified type diabetes mellitus without mention of complication, uncontrolled 12/21/2010 - Winged scapula, right 01/12/2020 PAST SURGICAL HISTORY Procedure Laterality Date - CABG (3) VEIN GRAFTS AND ARTERIAL GRAFT(S) 09/23/2019 - COLONOSCOP W/ OR W/O BRSH SPEC 12/12/11 SOCIAL HISTORY Social History Tobacco Use - Smoking status: Never Smoker - Smokeless tobacco: Never Used Vaping Use - Vaping Use: Never used Substance Use Topics - Alcohol use: Yes Comment: rare - Drug use: No FAMILY HISTORY Problem Relation Age of Onset - Colon Cancer Maternal Grandmother - None Mother - Genitourinary () Father kidney stones - Prostate Cancer Father 82 - None Brother - Hypertension Sister - Genitourinary () Sister kidney stones ALLERGIES: ALLERGIES Allergen Reactions - Atorvastatin Myalgia Severe, debilitation, whole body myalgias and arthralgias - Metoprolol Other: See Comments Cold hands and feet, resolved after discontinuation - Seasonal Allergies Cough NKDA MEDICATIONS: carvedilol (COREG) 3.125 mg tablet Take 1 tablet by mouth twice daily. pravastatin (PRAVACHOL) 10 mg tablet Take 1 tablet by mouth once daily. aspirin, enteric coated (ASPIRIN, ENTERIC COATED) 81 mg EC tablet TAKE 2 TABLETS BY MOUTH EVERY DAY insulin needles, DISPOSABLE, (EASY TOUCH) 31 gauge x 5/16 Use with insulin 5 times daily as directed. metFORMIN (GLUCOPHAGE) 1,000 mg tablet Take 1 tablet by mouth twice daily with meals. traZODone (DESYREL) 50 mg tablet Take 2 tablets by mouth daily at bedtime. montelukast (SINGULAIR) 10 mg tablet Take 1 tablet by mouth daily at bedtime. sitaGLIPtin (JANUVIA) 100 mg tablet Take 1 tablet by mouth once daily. lisinopril (ZESTRIL, PRINIVIL) 20 mg tablet Take 1 tablet by mouth once daily. fenofibrate nanocrystallized (TRICOR) 145 mg tablet Take 1 tablet by mouth once daily. insulin lispro (HUMALOG KWIKPEN) 100 unit/mL 16 units with breakfast. 16 units with lunch. 20 units with supper. insulin NPH (HumuLIN N,NovoLIN N) pen 25 units with breakfast. 30 units with dinner. loratadine (CLARITIN) 10 mg tablet Take 10 mg by mouth once daily as needed for Cold/Allergy Symptoms. vitamin B complex (B COMPLEX ORAL) Take 1 tablet by mouth once daily. multivitamin tablet Take 1 tablet by mouth once daily. REVIEW OF SYSTEMS: Review of Systems Constitutional: Negative for chills, fever, malaise/fatigue and weight loss. HENT: Negative for hearing loss and sore throat. Eyes: Negative for blurred vision and double vision. Respiratory: Negative. Cardiovascular: Negative. Genitourinary: Negative for dysuria, frequency, hematuria and urgency. Musculoskeletal: Negative. Skin: Negative. Neurological: Negative for dizziness, seizures, loss of consciousness, weakness and headaches. Endo/Heme/Allergies: Negative for environmental allergies. Does not bruise/bleed easily. Psychiatric/Behavioral: Negative for depression. PHYSICAL EXAMINATION: BP 138/70 (BP Site: Left Arm, BP Position: S (more content not included)...[facility]07-08-2020 History of Past illness Narrative* Problem Noted Date Resolved Date Nontraumatic pain of right shoulder 03/29/2020 10/02/2020 Winged scapula, right 01/12/2020 10/02/2020 Cold extremities 11/04/2019 11/04/2019 CAD (coronary artery disease) 09/23/2019 Abnormal echocardiogram 08/27/2019 01/12/20 20 Kidney stone 02/13/2016 10/24/2016 Bladder stone 02/13/2016 10/24/2016 BPH (benign prostatic hypertrophy) with urinary obstruction 02/13/2016 01/22/2018 Complex renal cyst 02/13/2016 07/27/2017 Gross hematuria 02/13/2016 07/10/2017 DM (diabetes mellitus), type 2, uncontrolled 09/201001/22/2018 documented as of this encounter (statuses as of 02/01/2022) [facility]07-08-2020 History of Past illness Narrative* Problem Noted Date Resolved Date Nontraumatic pain of right shoulder 03/29/2020 10/02/2020 Winged scapula, right 01/12/2020 10/02/2020 Cold extremities 11/04/2019 11/04/2019 CAD (coronary artery disease) 09/23/2019 Abnormal echocardiogram 08/27/2019 01/12/20 20 Kidney stone 02/13/2016 10/24/2016 Bladder stone 02/13/2016 10/24/2016 BPH (benign prostatic hypertrophy) with urinary obstruction 02/13/2016 01/22/2018 Complex renal cyst 02/13/2016 07/27/2017 Gross hematuria 02/13/2016 07/10/2017 DM (diabetes mellitus), type 2, uncontrolled 09/201001/22/2018 documented as of this encounter (statuses as of 02/27/2022) [facility]07-08-2020 History of Past illness Narrative* Problem Noted Date Resolved Date Nontraumatic pain of right shoulder 03/29/2020 10/02/2020 Winged scapula, right 01/12/2020 10/02/2020 Cold extremities 11/04/2019 11/04/2019 CAD (coronary artery disease) 09/23/2019 Abnormal echocardiogram 08/27/2019 01/12/20 20 Kidney stone 02/13/2016 10/24/2016 Bladder stone 02/13/2016 10/24/2016 BPH (benign prostatic hypertrophy) with urinary obstruction 02/13/2016 01/22/2018 Complex renal cyst 02/13/2016 07/27/2017 Gross hematuria 02/13/2016 07/10/2017 DM (diabetes mellitus), type 2, uncontrolled 09/201001/22/2018 documented as of this encounter (statuses as of 03/06/2022) [facility]07-[facility] History of Past illness Narrative* Problem Noted Date Resolved Date Nontraumatic pain of right shoulder 03/29/2020 10/02/2020 Winged scapula, right 01/12/2020 10/02/2020 Cold extremities 11/04/2019 11/04/2019 CAD (coronary artery disease) 09/23/2019 Abnormal echocardiogram 08/27/2019 01/12/20 20 Kidney stone 02/13/2016 10/24/2016 Bladder stone 02/13/2016 10/24/2016 BPH (benign prostatic hypertrophy) with urinary obstruction 02/13/2016 01/22/2018 Complex renal cyst 02/13/2016 07/27/2017 Gross hematuria 02/13/2016 07/10/2017 DM (diabetes mellitus), type 2, uncontrolled 09/201001/22/2018 documented as of this encounter (statuses as of 03/26/2022) [facility] No data available for this section [facility] Evaluation note* Diagnosis Acute pain of left shoulder- Primary [facility] Situational anxiety- Primary Other anxiety states [facility]* Diagnosis Insomnia, unspecified type [facility] [place] [facility]* Diagnosis 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, with long-term current use of insulin, macular edema presence unspecified (HCC)- Primary Chronic hypertrophic rhinitis Chronic rhinitis Hyperlipidemia, unspecified hyperlipidemia type Essential hypertension Unspecified essential hypertension Need for vaccination Need for prophylactic vaccination and inoculation against unspecified single disease Coronary artery disease involving [place] coronary artery of [place] heart without angina pectoris [facility] [place] [facility] Diagnosis Anxiety- Primary Anxiety state, unspecified [facility]* Diagnosis Acute non-recurrent maxillary sinusitis- Primary Hearing loss of left ear due to cerumen impaction [facility]* Diagnosis Routine medical exam- Primary Routine general medical examination at a health care facility Special screening for malignant neoplasms, colon Type 2 diabetes mellitus with both eyes affected by mild nonproliferative retinopathy without macular edema, with long-term current use of insulin (HCC) Essential hypertension Unspecified essential hypertension Hyperlipidemia, unspecified hyperlipidemia type Coronary artery disease involving [place] coronary artery of [place] heart without angina pectoris Unspecified open wound, left foot, initial encounter [facility] Diagnosis Essential hypertension- Primary Unspecified essential hypertension [facility] Diagnosis Essential hypertension- Primary Unspecified essential hypertension [facility] Diagnosis Primary osteoarthritis of both first carpometacarpal joints- Primary Primary localized osteoarthrosis, hand [facility] [place] [facility]* Diagnosis Fall, initial encounter- Primary Pain of left lower extremity Lower extremity edema Edema Ecchymosis Other specified circulatory system disorders [facility]* Diagnosis Encounter for screening for malignant neoplasm of colon- Primary Special screening for malignant neoplasms, colon History of colonic polyps Personal history of colonic polyps [facility] [place] [facility]* Diagnosis Essential hypertension- Primary Unspecified essential hypertension Encounter for immunization Need for other specified prophylactic vaccination against single bacterial disease [facility] Diagnosis 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, with long-term current use of insulin, macular edema presence unspecified (HCC) documented in this encounter [facility] Discharge instructions No data available for this section [facility] Progress note No data available for this section [facility] Reason for referral (narrative)* Outpatient Procedure (Routine) - Pending Review Specialty Diagnoses / Procedures Referred By Contac t Referred To Contact [facility] Diagnoses Special screening for malignant neoplasms, colon Procedures COLONOSCOPY SCREENING COLONOSCOPY FLX DX W/COLLJ SPEC WHEN PFRMD Santana Carlin MD [address] [place] [address] [facility] [address] [place] [address] Referral ID Status Reason Start Date Expiration Date Visits Requested Visits Authorized [id number] Pending Review Auto-Generat ed Referral 10/21/2022 10/21/2023 1 1 [facility] for referral (narrative)* Diagnostic Procedure Only (Routine) - Closed Specialty Diagnoses / Procedures Referred By Contac t Referred To Contact XR IMAGING Diagnoses Pain of left lower extremity Fall, initial encounter Lower extremity edema Ecchymosis Procedures XR KNEE GENERAL 4V AP BOTH/PA BOTH/LAT/MERC LEFT RADIOLOGIC EXAM KNEE COMPLETE 4/MORE VIEWS Tonya Saunders APRN.CNP [address] [place] [address] Xr Imaging Referral ID Status Reason Start Date Expiration Date V isits Requested Visits Authorized [id number] Closed Auto-Generate d Referral 02/20/2023 03/21/2024 1 1 * Diagnostic Procedure Only (Routine) - Closed Specialty Diagnoses / Procedures Referred By Contac t Referred To Contact XR IMAGING Diagnoses Pain of left lower extremity Fall, initial encounter Lower extremity edema Ecchymosis Procedures XR FEMUR GENERAL 2V AP/LAT LEFT RADIOLOGIC EXAMINATION FEMUR MINIMUM 2 VIEWS Tonya Saunders APRN.CNP [address] [place] [address] Xr Imaging Referral ID Status Reason Start Date Expiration Date V isits Requested Visits Authorized [id number] Closed Auto-Generate d Referral 02/20/2023 03/21/2024 1 1 * Diagnostic Procedure Only (Routine) - Closed Specialty Diagnoses / Procedures Referred By Contac t Referred To Contact XR IMAGING Diagnoses Pain of left lower extremity Fall, initial encounter Lower extremity edema Ecchymosis Procedures XR HIP GENERAL 3V PELV/AP/LAT LEFT RADEX HIP UNILATERAL WITH PELVIS 2-3 VIEWS Tonya Saunders APRN.CNP [address] [place] [address] Xr Imaging Referral ID Status Reason Start Date Expiration Date V isits Requested Visits Authorized [id number] Closed Auto-Generate d Referral 02/20/2023 03/21/2024 1 1 [facility] Summary Purpose Family History No Family History Records FoundNo Family History Records FoundNo Family History Records FoundNo Family History Records FoundNo Family History Records Found Advance Directives No Advanced Directives Records FoundDocuments on File Type Date Recorded Patient Plant Safety Leader Expl anation Advance Directive(s) 12/11/2021 8:27 AM Advance Directive(s) 12/04/2021 8:44 AM Advance Directive(s) 12/03/2021 8:11 AM Advance Directive(s) 11/22/2021 4:32 PM Advance Directive(s) 09/23/2019 6:08 AM Advance Directive(s) 08/27/2019 7:37 AM Latest Code Status on File Code Status Date Activated Date Inactivated Comments Full Code 09/29/2019 1:02 PM 12/11/2021 8:31 AM Latest Code Status on File Code Status Date Activated Date Inactivated Comments Full Code 09/29/2019 1:02 PM 12/11/2021 8:31 AM Latest Code Status on File Code Status Date Activated Date Inactivated Comments Full Code 09/29/2019 1:02 PM 12/11/2021 8:31 AM Additional Source Comments (unrecognized sect ion and content) No Status Records FoundNo Status Records FoundNo Status Records FoundNo Status Records FoundNo Status Records Found INFORMATION SOURCE (unrecogn ized section and content) DATE CREATED AUTHOR AUTHOR'S ORGANIZ ATION 10/25/2020 [facility] DATE CREATED AUTHOR AUTHOR'S ORGANIZ ATION 12/14/2021 [facility] DATE CREATED AUTHOR AUTHOR'S ORGANIZ ATION 08/12/2022 [facility] ([place]) DATE CREATED AUTHOR AUTHOR'S ORGANIZ ATION 07/04/2023 [facility] Source Comments (unrecognize d section and content) In the event this informatio n is protected by the Federal Confidentiality of Alcohol and Drug Abuse Patient Records regulations: The Federal rules restrict any use of the information to criminally investigate or prosecute any alcohol or drug abuse patient.[facility] the event this information is protected by the Federal Confidentiality of Alcohol and Drug Abuse Patient Records regulations: The Federal rules restrict any use of the information to criminally investigate or prosecute any alcohol or drug abuse patient.[facility] the event this information is protected by the Federal Confidentiality of Alcohol and Drug Abuse Patient Records regulations: The Federal rules restrict any use of the information to criminally investigate or prosecute any alcohol or drug abuse patient.[facility] the event this information is protected by the Federal Confidentiality of Alcohol and Drug Abuse Patient Records regulations: The Federal rules restrict any use of the information to criminally investigate or prosecute any alcohol or drug abuse patient.[facility] the event this information is protected by the Federal Confidentiality of Alcohol and Drug Abuse Patient Records regulations: The Federal rules restrict any use of the information to criminally investigate or prosecute any alcohol or drug abuse patient.[facility] the event this information is protected by the Federal Confidentiality of Alcohol and Drug Abuse Patient Records regulations: The Federal rules restrict any use of the information to criminally investigate or prosecute any alcohol or drug abuse patient.[facility] the event this information is protected by the Federal Confidentiality of Alcohol and Drug Abuse Patient Records regulations: The Federal rules restrict any use of the information to criminally investigate or prosecute any alcohol or drug abuse patient.[facility] the event this information is protected by the Federal Confidentiality of Alcohol and Drug Abuse Patient Records regulations: The Federal rules restrict any use of the information to criminally investigate or prosecute any alcohol or drug abuse patient.[facility] the event this information is protected by the Federal Confidentiality of Alcohol and Drug Abuse Patient Records regulations: The Federal rules restrict any use of the information to criminally investigate or prosecute any alcohol or drug abuse patient.[facility] the event this information is protected by the Federal Confidentiality of Alcohol and Drug Abuse Patient Records regulations: The Federal rules restrict any use of the information to criminally investigate or prosecute any alcohol or drug abuse patient.[facility] the event this information is protected by the Federal Confidentiality of Alcohol and Drug Abuse Patient Records regulations: The Federal rules restrict any use of the information to criminally investigate or prosecute any alcohol or drug abuse patient.[facility] the event this information is protected by the Federal Confidentiality of Alcohol and Drug Abuse Patient Records regulations: The Federal rules restrict any use of the information to criminally investigate or prosecute any alcohol or drug abuse patient.[facility] the event this information is protected by the Federal Confidentiality of Alcohol and Drug Abuse Patient Records regulations: The Federal rules restrict any use of the information to criminally investigate or prosecute any alcohol or drug abuse patient.[facility] the event this information is protected by the Federal Confidentiality of Alcohol and Drug Abuse Patient Records regulations: The Federal rules restrict any use of the information to criminally investigate or prosecute any alcohol or drug abuse patient.[facility] the event this information is protected by the Federal Confidentiality of Alcohol and Drug Abuse Patient Records regulations: The Federal rules restrict any use of the information to criminally investigate or prosecute any alcohol or drug abuse patient.[facility] the event this information is protected by the Federal Confidentiality of Alcohol and Drug Abuse Patient Records regulations: The Federal rules restrict any use of the information to criminally investigate or prosecute any alcohol or drug abuse patient.[facility] the event this information is protected by the Federal Confidentiality of Alcohol and Drug Abuse Patient Records regulations: The Federal rules restrict any use of the information to criminally investigate or prosecute any alcohol or drug abuse patient.[facility] the event this information is protected by the Federal Confidentiality of Alcohol and Drug Abuse Patient Records regulations: The Federal rules restrict any use of the information to criminally investigate or prosecute any alcohol or drug abuse patient.[facility] Reason for Visit (unrecogniz ed section and content) Reason Comments MRI Appointment Needs to reschedule Reason Onset Date Comments Refill Request 03/26/2022 Reason Comments F/U 6 months Reason Comments Patient Question Reason Comments Workmans Comp Fell at work hurt shoulder Reason Comments Pain, Sinus sinus pressure, dizz iness, pain in eyes, sinus pressure x 3 weeks Reason Comments Yearly Exam Reason Comments Blood Pressure Check Reason Comments Blood Pressure Check Reason Comments Established Patient Pain Reason Comments Bleeding/Bruising Reason Comments Back Pain Back pain from hip d own to knee, trouble walking, bruising x 4 days Reason Comments Results Reason Comments Consult colonoscopy Reason Comments 6 week follow up Reason Onset Date Comments Refill Request 06/19/2023 Care Teams (unrecognized sec tion and content) Labor Relations Analyst Relationship Specialty Start Date End Date Santana Carlin MD [address] [place], [place] [address] PCP - General Internal Medicine 12/21/10 Dagoberto Ford MD [address] [address] [place], [place] [id number] [phone] Home Care Physician Thoracic Surgery 09/27/19 Dagoberto Ford MD [address] [address] [place] [address] Referring Thoracic Surgery 09/27/19 Lee Ordonez DO [facility] [place] [address] Cardiology 10/04/19 Labor Relations Analyst Relationship Specialty Start Date End Date Santana Carlin MD [address] [place], [place] [id number] PCP - General Internal Medicine 12/21/10 Dagoberto Ford MD [address] [address] [place] [address] Home Care Physician Thoracic Surgery 09/27/19 Dagoberto Ford MD [address] [address] [place] [address] Referring Thoracic Surgery 09/27/19 Lee Ordonez DO [facility] [place] [address] Cardiology 10/04/19 Labor Relations Analyst Relationship Specialty Start Date End Date Santana Carlin MD [address] [place] [address] PCP - General Internal Medicine 12/21/10 Dagoberto Ford MD [address] [address] [place] [address] Home Care Physician Thoracic Surgery 09/27/19 Dagoberto Ford MD [address] [place] [address] [place] [address] Referring Thoracic Surgery 09/27/19 Lee Ordonez DO [address] [place] [address] Cardiology 10/04/19 Labor Relations Analyst Relationship Specialty Start Date End Date Santana Carlin MD [address] [place] [address] PCP - General Internal Medicine 12/21/10 Dagoberto Ford MD [address] [address] [place] [address] Home Care Physician Thoracic Surgery 09/27/19 Dagoberto Ford MD [address] [place] [address] [place] [address] Referring Thoracic Surgery 09/27/19 Lee Ordonez, DO [address] [place] [address] Cardiology 10/04/19 Labor Relations Analyst Relationship Specialty Start Date End Date Santana Carlin MD [address] [place] [address] PCP - General Internal Medicine 12/21/10 Dagoberto Ford MD [address] [address] [place] [address] Home Care Provider Thoracic Surgery 09/27/19 Dagoberto Ford MD [address] [place] [address] [place] [address] Referring Thoracic Surgery 09/27/19 MeryLee nuñez [place] [address] [place] [address] Cardiology 10/04/19 Labor Relations Analyst Relationship Specialty Start Date End Date Santana Carlin MD [address] [place] [address] PCP - General Internal Medicine 12/21/10 Dagoberto Ford MD [address] [address] [place] [address] Home Care Provider Thoracic Surgery 09/27/19 Dagoberto Ford MD [address] [place] [address] [place] [address] Referring Thoracic Surgery 09/27/19 [place] [address] [place] [address] Cardiology 10/04/19 Labor Relations Analyst Relationship Specialty Start Date End Date Santana Carlin MD [address] [place] [address] PCP - General Internal Medicine 12/21/10 Dagoberto Ford MD [address] [address] [place] [address] Home Care Provider Thoracic Surgery 09/27/19 Dagoberto Ford MD [address] [place] [address] [place] [address] Referring Thoracic Surgery 09/27/19 Lee Ordonez DO [facility] [place] [address] Cardiology 10/04/19 Labor Relations Analyst Relationship Specialty Start Date End Date Santana Carlin MD [address] [place] [address] PCP - General Internal Medicine 12/21/10 Dagoberto Ford MD [address] [address] [place] [address] Home Care Provider Thoracic Surgery 09/27/19 Dagoberto Ford MD [address] [place] [address] [place] [address] Referring Thoracic Surgery 09/27/19 Lee Ordonez [facility] [place] [address] Cardiology 10/04/19 Labor Relations Analyst Relationship Specialty Start Date End Date Santana Carlin MD [address] [place] [address] PCP - General Internal Medicine 12/21/10 Dagoberto Ford MD [address] [place] [address] Home Care Provider Thoracic Surgery 09/27/19 Dagoberto Ford MD [address] [address] [place] [address] Referring Thoracic Surgery 09/27/19 Lee Ordonez DO [facility] [place] [address] Cardiology 10/04/19 Labor Relations Analyst Relationship Specialty Start Date End Date Santana Carlin MD [address] [place] [address] PCP - General Internal Medicine 12/21/10 Dagoberto Ford MD [address] [place] [address] Home Care Provider Thoracic Surgery 09/27/19 Dagoberto Ford MD [address] [place] [address] Referring Thoracic Surgery 09/27/19 MeryLee nuñez [place] [address] [place] [address] Cardiology 10/04/19 Labor Relations Analyst Relationship Specialty Start Date End Date Santana Carlin MD [address] [place] [address] PCP - General Internal Medicine 12/21/10 Dagoberto Ford MD [address] [address] [place] [address] Home Care Provider Thoracic Surgery 09/27/19 Dagoberto Ford MD [address] [address] [place] [address] Referring Thoracic Surgery 09/27/19 MeryLee nuñez [place] [address] [place] [address] Cardiology 10/04/19 Labor Relations Analyst Relationship Specialty Start Date End Date Santana Carlin MD [address] [place] [address] PCP - General Internal Medicine 12/21/10 Dagoberto Ford MD [address] [address] [place] [address] Home Care Provider Thoracic Surgery 09/27/19 Dagoberto Ford MD [address] [address] [place] [address] Referring Thoracic Surgery 09/27/19 Lee Ordonez DO [address] [place] [phone] Cardiology 10/04/19 Labor Relations Analyst Relationship Specialty Start Date End Date Santana Carlin MD [address] [place], [place] [address] PCP - General Internal Medicine 12/21/10 Dagoberto Ford MD [address] [place], [place] [id number] [phone] Home Care Provider Thoracic Surgery 09/27/19 Dagoberto Ford MD [address] [address] [place] [address] Referring Thoracic Surgery 09/27/19 Lee Ordonez DO [address] [place] [address] Cardiology 10/04/19 Labor Relations Analyst Relationship Specialty Start Date End Date Santana Carlin MD [address] [place] [address] PCP - General Internal Medicine 12/21/10 Dagoberto Ford MD [address] [place] [address] [place] [address] Home Care Provider Thoracic Surgery 09/27/19 Dagoberto Ford MD [address] [address] [place] [address] Referring Thoracic Surgery 09/27/19 Lee Ordonez DO [address] [place] [address] Cardiology 10/04/19 Labor Relations Analyst Relationship Specialty Start Date End Date Santana Carlin MD [address] [place] [address] PCP - General Internal Medicine 12/21/10 Dagoberto Ford MD [address] [address] [place] [address] Home Care Provider Thoracic Surgery 09/27/19 Dagoberto Ford MD [address] [place] [address] Referring Thoracic Surgery 09/27/19 Lee Ordonez DO [facility] [place] [address] Cardiology 10/04/19 Labor Relations Analyst Relationship Specialty Start Date End Date Santana Carlin MD [address] [place] [address] PCP - General Internal Medicine 12/21/10 Dagoberto Ford MD [address] [place] [address] Home Care Provider Thoracic Surgery 09/27/19 Dagoberto Ford MD [address] [place] [address] Referring Thoracic Surgery 09/27/19 Lee Ordonez DO [address] [place] [address] Cardiology 10/04/19 Care Team (unrecognized sect ion and content) Care Team Personnel Name: SANTANA CARLIN MD Member Role: Primary Care Physician Address: Address: [facility] [place] [address]- Care Team Related Persons Name: TANNER MUÑOZ Address: Home [address] [facility] FOR RECORDS PERTAINING TO PATIENTS WHO ARE OR HAVE BEEN ENROLLED IN A CHEMICAL DEPENDENCY/SUBSTANCEABUSE PROGRAM, SOME INFORMATION MAY BE OMITTED. This clinical summary was aggregated from multiple sources. Caution should be exercised in using it in the provision of clinical care. This summary normalizes information from multiple sources, and as a consequence, information in this document may materially change the coding, format and clinical context of patient data. In addition, data may be omitted in some cases. CLINICAL DECISIONS SHOULD BE BASED ON THE PRIMARY CLINICAL RECORDS. [employer] provides no warranty or guarantee of the accuracy or completeness of information in this document.
[2023-12-04 05:00] VITALS: BP 124/83; PULSE 67; RESP 16; O2SAT 99
--- NOTE | 2023-12-04 05:15 | EX.ED.DYSGE1 ---
HPI History of Present Illness Chief Complaint: Dizziness Informant: patient and spouse/S.O. Narrative Narrative: Patient is a 63-year-old male with past medical history of coronary artery disease hypertension hyperlipidemia and diabetes. Patient states she went to bed normally at his normal time last night and then awoke to use the restroom. He states that when he stood and started walking towards the restroom he was off balance and felt like he was drifting [id number]. He states that with this he developed nausea and even had a bout of vomiting. He reports that at rest his symptoms seem to resolve but as soon as he begins to stand or walk once again they return and with this he presents for evaluation [facility] Medical History (Updated 12/04/23 @ 07:[address] Sagar Mooney DO) Arteriosclerotic heart disease (ASHD) Diabetes mellitus HLD (hyperlipidemia) Hypertension Home Medications fenofibrate nanocrystallized 145 mg tablet 145 mg PO DAILY 03/15/17 [History Last Taken Unknown] insulin aspart U-100 100 unit/mL (3 mL) subcutaneous pen (Novolog FlexPen U-100 Insulin aspart) 0 units SQ TID 03/15/17 [History Last Taken Unknown] insulin aspart U-100 100 unit/mL (3 mL) subcutaneous pen (Novolog FlexPen U-100 Insulin aspart) 50 unit SQ QHS 03/15/17 [History Last Taken Unknown] lisinopril 20 mg tablet 5 mg PO DAILY 03/15/17 [History Last Taken Unknown] metformin 1,000 mg tablet 1 tab PO BID 03/15/17 [History Last Taken Unknown] multivitamin (Multiple Vitamins tablet) 1 ea PO DAILY 03/15/17 [History Last Taken Unknown] sitagliptin phosphate 100 mg tablet (Januvia) 100 mg PO DAILY 03/15/17 [History Last Taken Unknown] trazodone 50 mg tablet 1 tab PO QHS PRN PRN Sleep 03/15/17 [History Last Taken Unknown] albuterol sulfate 90 mcg/actuation aerosol inhaler (ProAir HFA) 2 puff inhalation Q4H PRN PRN Cough ##1 10/15/17 [Rx Last Taken Unknown] diazepam 5 mg tablet (Valium) 5 mg PO TID PRN dizziness or vertigo 5 days #15 tabs 12/04/23 [Rx Last Taken Unknown] insulin NPH isoph U-100 human 100 unit/mL (3 mL) subcutaneous pen (Humulin N NPH U-100 Insulin KwikPen) 30 unit subcut BID 12/04/23 [History Last Taken Unknown] insulin lispro 100 unit/mL subcutaneous pen 1 sliding scale dose subcut TIDCM 12/04/23 [History Last Taken Unknown] ondansetron 4 mg disintegrating tablet 4 mg PO TID PRN nausea and vomiting #21 tabs 12/04/23 [Rx Last Taken Unknown] pravastatin 10 mg tablet 10 mg PO QHS 12/04/23 [History Last Taken Unknown] Allergy/AdvReac Type Severity Reaction Status Date / Time metoprolol AdvReac Other Verified 12/04/23 03:14 Family History Uncle famil Surgical History Hx of CABG Social History Smoking Status: Never smoker ROS ROS ED Constitutional Constitutional ED: Denies chills or fever(s) ENT ENT ED: Denies sore throat Cardiovascular Cardiovascular: Denies chest pain Respiratory/Chest Respiratory/Chest: Denies cough or dyspnea Gastrointestinal Gastrointestinal: Reports nausea and vomiting; Denies abdominal pain or diarrhea Genitourinary Genitourinary ED: Denies dysuria Musculoskeletal Musculoskeletal: Denies myalgias Integumentary Denies rash Neurologic Neurologic: Reports other Details: Positive dizziness ; Denies headache(s) Hematologic/Lymphatic Hematologic/Lymphatic: Denies easy bleeding or easy bruising EXAM Physical Exam Const Vital Signs: 12/04/23 03:10 12/04/23 04:10 12/04/23 05:00 Temperature 97 F L Temperature Source Oral Pulse Rate 70 68 67 Respiratory Rate 11 L 16 16 Blood Pressure 146/91 H 130/79 H 124/83 H Blood Pressure Mean 109 96 96 Pulse Ox 96 98 99 12/04/23 05:41 Temperature 97 F L Temperature Source Pulse Rate 61 Respiratory Rate 16 Blood Pressure 129/74 H Blood Pressure Mean 92 Pulse Ox 99 Positive well nourished and well developed General Appearance ED: well developed; Negative for pallor HEENT HEENT Narrative: Normocephalic atraumatic Eyes PERRL and EOMs intact bilaterally General Eye ED: Negative for pale conjunctiva or scleral icterus Neck supple Neck Narrative: No nuchal rigidity or meningeal signs noted Resp normal respiratory effort and clear to auscultation bilaterally Cardio regular rate and regular rhythm Rate: other Other Details: Radial and carotid pulses are equal and symmetric GI normal to inspection, nondistended, normoactive bowel sounds, non-tender, non-distended and no masses GI Narrative: No voluntary guarding or rigidity or pulsatile mass Auscultation: normoactive bowel sounds Palpation: soft Extremity normal to inspection Neuro oriented x3 and CN's II-XII intact bilaterally Neuro Narrative: GCS of 15 Cranial nerves II through XII are grossly intact without focal neurologic deficit No pronator drift no dysmetria no truncal ataxia There is horizontal nystagmus noted and positive [place] exam on right Sensorium / Orientation: alert Psych mental status grossly normal Skin no rashes or lesions noted General Skin Exam: Negative for jaundice or pallor MDM MDM MDM Narrative Medical decision making narrative: Patient arrived to the ER slightly hypertensive otherwise with stable vitals. He reported sudden onset of dizziness described as a sense of motion when he got up to use the restroom. Differential diagnosis is for central versus peripheral vertigo versus orthostasis versus acute blood loss anemia versus acute kidney injury or electrolyte abnormality. Basic labs were obtained which revealed no clinically significant findings and patient was given fluid as well as Valium and Zofran. After treatment he reported resolution of symptoms and was able to walk with a steady gait in the ER indicating symptoms are most likely peripheral vertigo in nature. Therefore I feel no need for a CT/CTA and patient is otherwise safe for discharge with outpatient follow-up History & Record Review Discussion w/independent historian: Patient and Significant other Lab Data Labs: Laboratory Results - last 24 hr 12/04/23 03:22 WBC 5.8 RBC 5.11 Hgb 15.3 Hct 44.5 MCV 87.1 MCH 29.9 MCHC 34.4 RDW Std Deviation 38.4 RDW Coeff of Vicki 12.0 Plt Count 249 MPV 10.0 Immature Gran % (Auto) 0.200 Neut % (Auto) 45.8 L Lymph % (Auto) 37.2 [place] % (Auto) 13.0 H Eos % (Auto) 3.1 Baso % (Auto) 0.7 Absolute Neuts (auto) 2.6 Absolute Lymphs (auto) 2.14 Nucleated RBC % 0 Sodium 140 Potassium 3.6 Chloride 106 Carbon Dioxide 26.0 Anion Gap 8 BUN 20 H Creatinine 1.00 Estim Creat Clear Calc 93.82 Est GFR (MDRD) Af Amer 97 Est GFR (MDRD) Non-Af 80 BUN/Creatinine Ratio 20.0 Glucose 164 H Calcium 9.4 Magnesium 2.0 Discharge Plan Triage Chief Complaint: Dizziness ED Provider: Sagar Mooney Dx/Rx/DC Orders Clinical Impression: Peripheral vertigo, Insulin dependent diabetes mellitus, Hyperlipidemia, Hypertension Instructions: Vestibular Rehab Therapy, ED BPV Vertigo Prescriptions: New diazepam [Valium] 5 mg tablet 5 mg PO TID PRN (Reason: dizziness or vertigo) 5 Days Qty: 15 0RF ondansetron 4 mg tablet,disintegrating 4 mg PO TID PRN (Reason: nausea and vomiting) Qty: 21 0RF No Action multivitamin [Multiple Vitamins] 1 EACH tablet 1 ea PO DAILY trazodone 50 MG tablet 1 tab PO QHS PRN PRN (Reason: Sleep) Patient Comments: TAKE ONE TABLET BY MOUTH AT BEDTIME lisinopril 20 MG tablet 5 mg PO DAILY Patient Comments: TAKE ONE TABLET BY MOUTH EVERY DAY metformin 1,000 MG tablet 1 tab PO BID Patient Comments: insulin aspart U-100 [Novolog FlexPen U-100 Insulin] 100 UNITS/ML insulin pen 0 units SQ TID Patient Comments: UNITS PER SLIDING SCALE WITH PRIOR TO EVERY MEAL insulin aspart U-100 [Novolog FlexPen U-100 Insulin] 100 UNITS/ML insulin pen 50 unit SQ QHS Patient Comments: INJECT 10 UNITS SUBCUTANEOUSLY 3 TIMES DAILY WITH MEALS. ADD 2 UNITS FOR EACH EXTRA UNIT OF CARBOHYDRATES fenofibrate nanocrystallized 145 MG tablet 145 mg PO DAILY Patient Comments: TAKE ONE TABLET BY MOUTH ONCE DAILY Januvia 100 MG tablet 100 mg PO DAILY Patient Comments: TAKE ONE TABLET BY MOUTH EVERY DAY albuterol sulfate [ProAir HFA] 1 PUFF inhaler 2 puff inhalation Q4H PRN PRN (Reason: Cough) Qty: 1 0RF pravastatin 10 mg tablet 10 mg PO QHS insulin lispro 100 unit/mL insulin pen 1 sliding scale dose subcut TIDCM Humulin N NPH Insulin KwikPen 100 unit/mL (3 mL) insulin pen 30 unit subcut BID Stand Alone Forms: ED Work / School Excuse Primary Care Provider: Santana Salinas Referrals: Santana Salinas MD [Primary Care Provider] - Activity Restrictions/Additional Instructions: Your history and exam is consistent with peripheral vertigo most likely secondary to little stones or crystals within the inner ear known as otoliths. You may try the Prema maneuver at home to help resolve symptoms faster and use the medication as directed to help control any further dizzy spells. Return to the ER should you have any further concerns Disposition Disposition: Home, Self Care Discharge Date/Time: 12/04/23 05:42
[2023-12-04 05:41] VITALS: BP 129/74; PULSE 61; RESP 16; TEMP 36.1; O2SAT 99
== END 2023-12-04 05:42 | disposition home or self-care (01) ==
PROVIDERS: Emergency Provider Emergency Medicine; PCP Internal Medicine; Visit Provider Emergency Medicine
DX: H81.399 Other peripheral vertigo, unspecified ear (principal); E11.9 Type 2 diabetes mellitus without complications; Z79.4 Long term (current) use of insulin; I10 Essential (primary) hypertension; E78.5 Hyperlipidemia, unspecified; Z79.51 Long term (current) use of inhaled steroids; Z79.84 Long term (current) use of oral hypoglycemic drugs; Z79.899 Other long term (current) drug therapy; Z95.1 Presence of aortocoronary bypass graft
CPT/HCPCS: 80048; 83735; 85025; 96361; 96374; 99284; J7030; A4216; J2405